=== PATIENT | female | born 1965 | race Caucasian/White ===

== ENCOUNTER → 2018-04-09 10:45 | Outpatient (CLI) | payer OTHER, MEDICAID, SELFPAY ==
--- NOTE | 2018-04-09 10:49 | DI.RAD.S_ITS ---
PROCEDURE: XR KNEE RT 3V INDICATIONS: right knee pain TECHNIQUE: 3 views of the knee were acquired. COMPARISON: None. FINDINGS: Bones: No fractures or dislocations. No suspicious bony lesions. Minimal degenerative change. Soft tissues: Moderate joint effusion. No suspicious soft tissue calcifications. IMPRESSION: Moderate effusion. No visualized acute fracture or dislocation. However, if clinical concern and/or pain persist, short interval imaging followup in 7-10 days is recommended, as occult injury cannot be definitively excluded. Dictated by: Gladis Sumner M.D. on 04/09/2018 at 14:44 Approved by: Gladis Sumner M.D. on 04/09/2018 at 14:45
== END ==
PROVIDERS: Family Provider Family Medicine; PCP Family Medicine; Visit Provider Family Medicine
DX: M25.561 Pain in right knee (principal); M25.461 Effusion, right knee
CPT/HCPCS: 73562

== ENCOUNTER 2018-04-28 05:49 | Emergency (ER) | payer OTHER, MEDICAID, SELFPAY ==
[2018-04-28 05:57] VITALS: BP 138/75; PULSE 92; RESP 16; O2SAT 100
[2018-04-28 06:04] VITALS: BP 147/85; PULSE 92; RESP 16; TEMP 36.8; O2SAT 100; BMI 34.5
--- NOTE | 2018-04-28 06:05 | ED_ITS ---
HPI - Extremity Injury (Lower) General Chief Complaint: Extremity Injury, Lower Stated Complaint: RIGHT LEG CRAMPING UP Time Seen by Provider: 04/28/18 05:58 Source: patient Mode of arrival: ambulatory Limitations: no limitations History of Present Illness HPI Narrative: Patient is here for evaluation of cramping of her right lower extremity. Patient states that she has had issues with pain in her right knee. She states that a consult has been placed for an MRI by her primary doctor. Patient states that overnight she had cramping in her right calf down into her foot. She states that this is causing her ?AFib? to get worse. She states she is feeling palpitations and very anxious about the situation. Related Data Home Medications Medication Instructions Recorded Confirmed sertraline [Zoloft] 100 mg PO QDAY #0 12/08/17 Previous Rx's Medication Instructions Recorded simethicone [Gas Relief 80] 80 mg PO Q8H PRN #20 11/06/17 lorazepam [Ativan] 1 mg PO BIDP PRN #10 tab 12/06/17 ondansetron [Zofran ODT] 4 mg SUBLINGUAL Q6HP PRN #10 odt 12/06/17 lorazepam 1 mg PO SEE INSTRUCTIONS #60 tab 12/08/17 cephalexin [Keflex] 500 mg PO Q6H 7 Days #0 cap 02/27/18 diphenhydramine HCl [Benadryl 25 mg PO Q6HP PRN #30 tab 02/27/18 Allergy] loratadine [Claritin Liqui-Gel] 10 mg PO QDAY #30 sgl 02/27/18 prednisone 40 mg PO Q DAY 7 Days #0 tab 02/27/18 cyclobenzaprine 10 mg PO TID PRN #7 tab 04/28/18 Allergies Allergy/AdvReac Type Severity Reaction Status Date / Time lorazepam [From Ativan] Allergy Intermediate itching Verified 04/28/18 06:20 sertraline [SERTRALINE] Allergy Unknown Verified 04/28/18 06:20 codeine [CODEINE] AdvReac Mild vomiting Verified 04/28/18 06:20 hydrocodone [HYDROCODONE] AdvReac Mild vomiting Verified 04/28/18 06:20 ibuprofen [IBUPROFEN] AdvReac Mild gi upset Verified 04/28/18 06:20 Penicillins [PENICILLINS] AdvReac Mild vomiting Verified 04/28/18 06:20 Sulfa (Sulfonamide AdvReac Mild headache Verified 04/28/18 06:20 Antibiotics) [SULFA (SULFONAMIDE ANTIBIOTICS)] Review of Systems Constitutional Denies chills, Denies fever(s), Denies lethargy and Denies weakness Cardiovascular Denies chest pain, Denies chest pain at rest, Reports rapid heart rate, Reports palpitations, Denies dyspnea and Denies dyspnea on exertion Respiratory Denies cough, Denies dyspnea, Denies dyspnea on exertion and Denies wheezing Gastrointestinal Gastrointestinal: Denies abdominal pain, Denies change in bowel habits, Denies diarrhea, Denies nausea and Denies vomiting Musculoskeletal Comments: Cramping to her right calf muscle Integumentary/Breasts Denies pruritus, Denies erythema, Denies rash and Denies wounds Neurologic Denies weakness Endocrine Reports palpitations Hematologic/Lymphatic Denies easy bruising Allergic/Immunologic Denies wheezing FOR[facility]LY [facility] Medical History Afib (Acute) Social History Smoking Status: Current every day smoker Exam Initial Vital Signs Initial Vital Signs: Vital Signs Pulse Rate 92 H 04/28/18 05:57 Respiratory Rate 16 04/28/18 05:57 Blood Pressure 138/75 H 04/28/18 05:57 Pulse Oximetry 100 04/28/18 05:57 Resp Effort & Inspection: normal respiratory effort Skin General: no rashes or lesions noted, No jaundice and No petechiae Neuro Other: Sensation intact to light touch right lower extremity Extrem Other: Tenderness to palpation around the right knee and on the calf muscle. No muscle spasms felt Course Orders Ordered: ED Orders 04/28/18 06:04 EKG-12 Lead Stat 04/28/18 06:28 Basic Metabolic Panel Stat Discontinued Medications Cyclobenzaprine HCl (Flexeril) 10 mg PO NOW ONE Stop: 04/28/18 06:41 Last Admin: 04/28/18 06:41 Dose: 10 mg Diazepam (Valium) 5 mg PO NOW ONE Stop: 04/28/18 06:05 Vital Signs - 8 hr 04/28/18 05:57 04/28/18 06:04 Temperature 98.2 F Pulse Rate 92 H 92 H Respiratory Rate 16 16 Blood Pressure 147/85 H Blood Pressure [Left Arm] 138/75 H Pulse Oximetry 100 100 MDM - Extremity Injury (Lower) Lab Data Attestation: I reviewed the patient's lab results. Result diagrams: 04/28/18 06:28 Lab Results 04/28/18 Range/Units 06:28 Sodium 141 (137-145) mmol/L Potassium 3.7 (3.4-5.1) mmol/L Chloride 103 (98-107) mmol/L Carbon Dioxide 26 (22-32) mmol/L BUN 16 (7-17) mg/dL Creatinine 0.70 (0.52-1.04) mg/dL Estimated GFR > 60.0 (>60) mL/min BUN/Creatinine Ratio 22.9 H (6-22) Glucose 146 H (70-100) mg/dL Calcium 9.4 (8.4-10.2) mg/dL ECG Data Attestation: I personally reviewed and interpreted this ECG as follows: Prior ECG tracings: not available for review Interpretation: Sinus rhythm Ventricular rate is 76 Normal axis Normal intervals Normal QRS No ST T wave changes MDM Narrative Medical decision making narrative: EKG unremarkable. Patient not in atrial fibrillation. Labs unremarkable. No signs of DVT. We did discuss leg cramps and how to treat them at home. We did discuss that she needs increase her fluid intake. We did discuss return precautions. She expressed understanding and agreement with plan Discharge Plan Departure Patient Disposition: Home, Self-Care Clinical Impression: Cramp in muscle Instructions: Nocturnal Leg Cramps Activity Restrictions/Additional Instructions: Recommend that you increase your fluid intake. If the cramps started again you can do some light stretching. Make sure you keep all of your scheduled medical appointments. Call your primary doctor for follow-up. Prescriptions: New cyclobenzaprine 10 mg tablet 10 mg PO TID PRN (Reason: muscle spasm) Qty: 7 RF: 0 No Action simethicone [Gas Relief 80] 80 MG tablet,chewable 80 mg PO Q8H PRNQty: 20 RF: 0 lorazepam [Ativan] 1 MG tablet 1 mg PO BIDP PRNQty: 10 RF: 0 ondansetron [Zofran ODT] 4 MG tablet,disintegrating 4 mg Sublingual Q6HP PRNQty: 10 RF: 0 sertraline [Zoloft] 100 MG tablet 100 mg PO QDAY Qty: 0 RF: 0 lorazepam 1 MG tablet 1 mg PO SEE INSTRUCTIONS Qty: 60 RF: 1 prednisone 20 MG tablet 40 mg PO Q DAY 7 Days Qty: 0 RF: 0 cephalexin [Keflex] 500 MG capsule 500 mg PO Q6H 7 Days Qty: 0 RF: 0 diphenhydramine HCl [Benadryl Allergy] 25 MG tablet 25 mg PO Q6HP PRNQty: 30 RF: 0 loratadine [Claritin Liqui-Gel] 10 MG capsule 10 mg PO QDAY Qty: 30 RF: 0
--- NOTE | 2018-04-28 06:24 | PC.NURSE ---
Pt drove herself to ER. Informed pt that valium is benzo med which has sedative effect and held med at this time.
[2018-04-28 06:41] LABS: BUN Creatinine Ratio 22.9 (6-22); Blood Urea Nitrogen 16 mg/dL (7-17); Calcium 9.4 mg/dL (8.4-10.2); Carbon Dioxide 26 mmol/L (22-32); Chloride 103 mmol/L (98-107); Estimated Glomerular Filt Rate > 60.0 mL/min (>60); Glucose 146 mg/dL (70-100); HEMOLYSIS < 15 (0-50); Potassium 3.7 mmol/L (3.4-5.1); Sodium 141 mmol/L (137-145)
[2018-04-28] MEDS: CYCLOBENZAPRINE 10 MG TABLET PO (06:41)
[2018-04-28 07:08] VITALS: BP 135/69; PULSE 77; RESP 18; O2SAT 99
== END 2018-04-28 07:00 | disposition home or self-care (01) ==
PROVIDERS: Emergency Provider Emergency Medicine; Family Provider Family Medicine; PCP Family Medicine
DX: R25.2 Cramp and spasm (principal)
CPT/HCPCS: 36415; 80048; 93005; 99282; 99284

== ENCOUNTER 2018-05-07 17:59 | Emergency (ER) | payer OTHER, MEDICAID, SELFPAY ==
[2018-05-07 18:01] VITALS: BP 132/86; PULSE 80; RESP 14; TEMP 36.7; O2SAT 99; BMI 34.5
[2018-05-07 18:04] VITALS: BP 132/86; PULSE 80; RESP 14; TEMP 36.7; O2SAT 99; BMI 34.5
--- NOTE | 2018-05-07 18:08 | DI.RAD.S_ITS ---
PROCEDURE: XR CHEST 2V INDICATIONS: shortness of breath TECHNIQUE: 2 views of the chest were acquired. COMPARISON: None. FINDINGS: Surgical changes and devices: None. Lungs and pleura: No pleural effusions or pneumothorax. Lungs are clear. Mediastinum: Mediastinal contours are normal. Heart size is normal. Bones and chest wall: No suspicious bony abnormalities. Soft tissues appear unremarkable. IMPRESSION: No acute process. Dictated by: Ivania Mabry M.D. on 05/07/2018 at 18:31 Approved by: Ivania Mabry M.D. on 05/07/2018 at 18:31
[2018-05-07] MEDS: ASPIRIN 81 MG TAB 324 MG PO (18:10)
[2018-05-07 18:23] LABS: Add Manual Diff / Slide Review NO; Basophils Percent Auto 0.7 % (0-2); Eosinophils Percent Auto 1.3 % (2-4); Hematocrit 35.6 % (36-46); Hemoglobin 11.9 g/dL (12.0-16.0); Lymphocytes Percent Auto 24.2 % (25-40); Mean Corpuscular HGB Conc 33.4 % (30-36); Mean Corpuscular Hemoglobin 26.1 PG (26-34); Mean Corpuscular Volume 78.1 fL (80-100); Monocytes Percent Auto 4.4 % (3-14); Neutrophils Absolute Auto 5700 /uL (3000-5900); Neutrophils Percent Auto 69.4 % (50-75); Platelet Count 358 X10^3/uL (150-400); Red Blood Cell Count 4.56 X10^6/uL (4.0-5.2); Red Cell Distribution Width 14.3 % (11.6-14.8); White Blood Cell Count 8.3 X10^3/uL (4.5-11.0)
[2018-05-07 18:35] LABS: Alanine Aminotransferase 32 IU/L (9-52); Albumin 4.4 g/dL (3.5-5.0); Albumin Globulin Ratio 1.5 (1.0-2.8); Alkaline Phosphatase 82 U/L (38-126); Aspartate Aminotransferase 21 IU/L (14-36); BUN Creatinine Ratio 16.3 (6-22); Bilirubin Total 0.5 mg/dL (0.2-1.3); Blood Urea Nitrogen 13 mg/dL (7-17); Calcium 9.2 mg/dL (8.4-10.2); Carbon Dioxide 24 mmol/L (22-32); Chloride 102 mmol/L (98-107); Creatine Kinase 58 U/L (30-135); Estimated Glomerular Filt Rate > 60.0 mL/min (>60); Glucose 152 mg/dL (70-100); HEMOLYSIS < 15 (0-50); Lipase 77 U/L (23-300); Potassium 3.4 mmol/L (3.4-5.1); Sodium 139 mmol/L (137-145); Total Protein 7.4 g/dL (6.3-8.2)
[2018-05-07 18:46] LABS: Troponin I < 0.012 ng/mL (0.01-0.034)
--- NOTE | 2018-05-07 20:02 | ED.CHESTPAIN ---
HPI - Chest Pain <JONG Contreras - Last Filed: 05/07/18 22:09> General Chief Complaint: Chest Pain Stated Complaint: CHEST PAIN GOING DOWN LEFT SIDE SOB History of Present Illness HPI narrative: 52-year-old female with history of anxiety and atypical chest pain here for complaint of having chest pain for the last several weeks. She reports that her primary care provider took her off of anxiety medications just prior to having her the symptoms. She has not been able to get back to her primary care provider for further evaluation of her anxiety. She denies any shortness of breath. She states that she gets this shortness of breath. She denies any stresses or relieves of the pain. No nausea or vomiting. No diaphoresis. She denies any other concerns or complaints. Related Data Previous Rx's Medication Instructions Recorded diazepam 5 mg PO TID PRN #20 tab 05/07/18 Allergies Allergy/AdvReac Type Severity Reaction Status Date / Time lorazepam [From Ativan] Allergy Intermediate itching Verified 04/28/18 06:20 sertraline [SERTRALINE] Allergy Unknown Verified 04/28/18 06:20 codeine [CODEINE] AdvReac Mild vomiting Verified 04/28/18 06:20 hydrocodone [HYDROCODONE] AdvReac Mild vomiting Verified 04/28/18 06:20 ibuprofen [IBUPROFEN] AdvReac Mild gi upset Verified 04/28/18 06:20 Penicillins [PENICILLINS] AdvReac Mild vomiting Verified 04/28/18 06:20 Sulfa (Sulfonamide AdvReac Mild headache Verified 04/28/18 06:20 Antibiotics) [SULFA (SULFONAMIDE ANTIBIOTICS)] Review of Systems <JONG Contreras - Last Filed: 05/07/18 22:09> Constitutional Denies chills, Denies fever(s), Denies lethargy and Denies weakness Eyes Denies change in vision, Denies eye discharge, Denies irritation and Denies loss of vision ENT Ears, Nose, Mouth, and Throat: Denies change in voice, Denies neck pain and Denies sore throat Cardiovascular Reports chest pain, Denies dyspnea and Denies dyspnea on exertion Respiratory Denies cough, Denies dyspnea, Denies dyspnea on exertion and Denies wheezing Gastrointestinal Gastrointestinal: Denies abdominal pain, Denies change in bowel habits, Denies diarrhea, Denies nausea and Denies vomiting Musculoskeletal Denies neck pain Integumentary/Breasts Denies pruritus, Denies erythema, Denies rash and Denies wounds Neurologic Denies loss of vision and Denies weakness Psychiatric Reports anxiety Hematologic/Lymphatic Denies easy bruising Allergic/Immunologic Denies wheezing Exam <JONG Contreras - Last Filed: 05/07/18 22:09> Initial Vital Signs Initial Vital Signs: Vital Signs Temperature 98.0 F 05/07/18 18:01 Pulse Rate 80 05/07/18 18:01 Respiratory Rate 14 05/07/18 18:01 Blood Pressure 132/86 H 05/07/18 18:01 Pulse Oximetry 99 05/07/18 18:01 Const General: cooperative and well developed Nutritional Appearance: well nourished Orientation: alert, awake, oriented x3 and not confused HENMT Nose: nasal discharge Mouth: oral mucosae normal and moist mucous membranes Eyes Conjunctivae: conjunctivae normal Sclera: sclerae normal Pupils: PERRL EOM: EOM intact bilaterally Resp Effort & Inspection: normal respiratory effort, able to speak in complete sentences, no respiratory distress and no use of accessory muscles Auscultation: clear to auscultation bilaterally, no rales, no rhonchi and no wheezes Cardio Rate: regular rate Rhythm: regular rhythm Heart Sounds: no click, no gallops, no murmurs and no rubs Pulses: normal peripheral pulses Skin General: no rashes or lesions noted, No jaundice and No petechiae <Glen Franklin DO - Last Filed: 05/08/18 01:31> Initial Vital Signs Initial Vital Signs: Vital Signs Temperature 98.0 F 05/07/18 18:01 Pulse Rate 80 05/07/18 18:01 Respiratory Rate 14 05/07/18 18:01 Blood Pressure 132/86 H 05/07/18 18:01 Pulse Oximetry 99 05/07/18 18:01 Scores <JONG Contreras - Last Filed: 05/07/18 22:09> HEART Score Heart Score history: Slightly Suspicious Heart Score EKG: Normal Heart Score Age: 45-64 years old Heart Score risk factors: 1-2 risk factors Heart Score troponin: < or = to normal limit Heart Score Total: 2 Wells' Criteria for PE Clinical signs and symptoms of PE: No PE is #1 Dx or equally likely: No Heart rate > 100: No Immobilization at least 3 days or surg in previous 4 weeks: No History of PE or DVT: No Hemoptysis: No Malignancy w/Treatment within 6 months or palliative: No Wells' PE Score total: 0 Course <JONG Contreras - Last Filed: 05/07/18 22:09> Orders Ordered: ED Orders 05/07/18 18:07 EKG-12 Lead Stat 05/07/18 18:08 XR chest 2V Stat 05/07/18 18:15 Complete Blood Count AUTO DIFF Stat Comprehensive Metabolic Panel Stat Lipase Stat Troponin with CK Cardiac Panel Stat 05/07/18 18:18 D Dimer Stat Discontinued Medications Aspirin (Aspirin Chew) 324 mg PO NOW ONE Stop: 05/07/18 18:08 Last Admin: 05/07/18 18:10 Dose: 324 mg Vital Signs - 8 hr 05/07/18 18:01 05/07/18 18:04 05/07/18 20:05 Temperature 98.0 F 98.0 F Pulse Rate 80 80 68 Respiratory Rate 14 14 17 Blood Pressure 132/86 H 132/86 H Blood Pressure [Right Arm] 140/84 H Pulse Oximetry 99 99 100 05/07/18 20:48 Temperature Pulse Rate 70 Respiratory Rate 16 Blood Pressure Blood Pressure [Right Arm] 135/94 H Pulse Oximetry 100 <Glen Franklin DO - Last Filed: 05/08/18 01:31> Orders Ordered: ED Orders 05/07/18 18:07 EKG-12 Lead Stat 05/07/18 18:08 XR chest 2V Stat 05/07/18 18:15 Complete Blood Count AUTO DIFF Stat Comprehensive Metabolic Panel Stat Lipase Stat Troponin with CK Cardiac Panel Stat 05/07/18 18:18 D Dimer Stat Discontinued Medications Aspirin (Aspirin Chew) 324 mg PO NOW ONE Stop: 05/07/18 18:08 Last Admin: 05/07/18 18:10 Dose: 324 mg Vital Signs - 8 hr 05/07/18 18:01 05/07/18 18:04 05/07/18 20:05 Temperature 98.0 F 98.0 F Pulse Rate 80 80 68 Respiratory Rate 14 14 17 Blood Pressure 132/86 H 132/86 H Blood Pressure [Right Arm] 140/84 H Pulse Oximetry 99 99 100 05/07/18 20:48 Temperature Pulse Rate 70 Respiratory Rate 16 Blood Pressure Blood Pressure [Right Arm] 135/94 H Pulse Oximetry 100 MDM - Chest Pain <David JONG Uribe - Last Filed: 05/07/18 22:09> Lab Data Result diagrams: 05/07/18 18:15 05/07/18 18:15 Lab Results 05/07/18 05/07/18 05/07/18 Range/Units 18:15 18:15 18:18 WBC 8.3 (4.5-11.0) X10^3/uL RBC 4.56 (4.0-5.2) X10^6/uL Hgb 11.9 L (12.0-16.0) g/dL Hct 35.6 L (36-46) % MCV 78.1 L (80-100) fL MCH 26.1 (26-34) PG MCHC 33.4 (30-36) % RDW 14.3 (11.6-14.8) % Plt Count 358 (150-400) X10^3/uL Neut % (Auto) 69.4 (50-75) % Lymph % (Auto) 24.2 L (25-40) % [place] % (Auto) 4.4 (3-14) % Eos % (Auto) 1.3 L (2-4) % Baso % (Auto) 0.7 (0-2) % Neut # (Auto) 5700 (0147-6611) /uL D-Dimer < 200 (<230) ng/mL Sodium 139 (137-145) mmol/L Potassium 3.4 (3.4-5.1) mmol/L Chloride 102 (98-107) mmol/L Carbon Dioxide 24 (22-32) mmol/L BUN 13 (7-17) mg/dL Creatinine 0.80 (0.52-1.04) mg/dL Estimated GFR > 60.0 (>60) mL/min BUN/Creatinine Ratio 16.3 (6-22) Glucose 152 H (70-100) mg/dL Calcium 9.2 (8.4-10.2) mg/dL Total Bilirubin 0.5 (0.2-1.3) mg/dL AST 21 (14-36) IU/L ALT 32 (9-52) IU/L Alkaline Phosphatase 82 (38-126) U/L Total Creatine Kinase 58 (30-135) U/L Troponin I < 0.012 (0.01-0.034) ng/mL Total Protein 7.4 (6.3-8.2) g/dL Albumin 4.4 (3.5-5.0) g/dL Globulin 3.0 (1.7-4.1) g/dL Albumin/Globulin Ratio 1.5 (1.0-2.8) Lipase 77 (23-300) U/L Imaging Data Chest x-ray: Radiologist's impression: PROCEDURE: XR CHEST 2V INDICATIONS: shortness of breath TECHNIQUE: 2 views of the chest were acquired. COMPARISON: None. FINDINGS: Surgical changes and devices: None. Lungs and pleura: No pleural effusions or pneumothorax. Lungs are clear. Mediastinum: Mediastinal contours are normal. Heart size is normal. Bones and chest wall: No suspicious bony abnormalities. Soft tissues appear unremarkable. IMPRESSION: No acute process. Dictated by: Ivania Mabry M.D. on 05/07/2018 at 18:31 Approved by: Ivania Mabry M.D. on 05/07/2018 at 18:31 ECG Data Interpretation: EKG shows normal sinus rhythm with no ST elevation or depression. No ectopy. Ventricular rate of 89. P are interval of 193. QRS duration is 78. QT of 358. MDM Narrative Medical decision making narrative: EKG shows normal sinus rhythm with no ST elevation or depression. Chest x-ray was obtained was negative for any acute findings. One set of cardiac enzymes was obtained was negative. D-dimer was less than 200. CBC and Chem panel were unremarkable. Sinus symptoms presents as chest pain is secondary to anxiety. She has been taken off of her anxiety medication which included sertraline and Ativan due to itching. She states she can actually tolerate Valium. She is given a small amount of Valium to help with her symptoms in the short term she is encouraged to follow up with primary care provider for further evaluation and treatment. She is also encouraged to follow up with counselor that she has schedule up later this month. She is instructed to use a relaxation techniques such as breathing exercises. For any worsening symptoms return to the emergency room. <Glen Franklin DO - Last Filed: 05/08/18 01:31> Lab Data Lab Results 06/11/18 06/11/18 06/11/18 Range/Units 18:15 18:15 18:18 WBC 8.3 (4.5-11.0) X10^3/uL RBC 4.56 (4.0-5.2) X10^6/uL Hgb 11.9 L (12.0-16.0) g/dL Hct 35.6 L (36-46) % MCV 78.1 L (80-100) fL MCH 26.1 (26-34) PG MCHC 33.4 (30-36) % RDW 14.3 (11.6-14.8) % Plt Count 358 (150-400) X10^3/uL Neut % (Auto) 69.4 (50-75) % Lymph % (Auto) 24.2 L (25-40) % [place] % (Auto) 4.4 (3-14) % Eos % (Auto) 1.3 L (2-4) % Baso % (Auto) 0.7 (0-2) % Neut # (Auto) 5700 (2460-9085) /uL D-Dimer < 200 (<230) ng/mL Sodium 139 (137-145) mmol/L Potassium 3.4 (3.4-5.1) mmol/L Chloride 102 (98-107) mmol/L Carbon Dioxide 24 (22-32) mmol/L BUN 13 (7-17) mg/dL Creatinine 0.80 (0.52-1.04) mg/dL Estimated GFR > 60.0 (>60) mL/min BUN/Creatinine Ratio 16.3 (6-22) Glucose 152 H (70-100) mg/dL Calcium 9.2 (8.4-10.2) mg/dL Total Bilirubin 0.5 (0.2-1.3) mg/dL AST 21 (14-36) IU/L ALT 32 (9-52) IU/L Alkaline Phosphatase 82 (38-126) U/L Total Creatine Kinase 58 (30-135) U/L Troponin I < 0.012 (0.01-0.034) ng/mL Total Protein 7.4 (6.3-8.2) g/dL Albumin 4.4 (3.5-5.0) g/dL Globulin 3.0 (1.7-4.1) g/dL Albumin/Globulin Ratio 1.5 (1.0-2.8) Lipase 77 (23-300) U/L Discharge Plan Departure Patient Disposition: Home, Self-Care Clinical Impression: Chest pain Discharge Date/Time: 05/07/18 20:55 Interventions: ED Discharge Assessment Last Done: 05/07/18 20:55 Instructions: DI for Anxiety -- Adult Activity Restrictions/Additional Instructions: Laboratory results EKG and imaging today were unremarkable. Signs and symptoms presents as chest pain secondary to anxiety. Follow up with primary care provider one week for further evaluation and treatment. Year prescribed a small amount of Valium to help with any anxiety symptoms. Recommend also use relaxation techniques such as deep breathing exercises. Follow up with counselor later this month as scheduled. For any worsening symptoms return to the emergency room. Prescriptions: New diazepam 5 mg tablet 5 mg PO TID PRN (Reason: anxiety) Qty: 20 RF: 0 Referrals: Steffen Loera MD [Primary Care Provider] - <Glen Franklin DO - Last Filed: 05/08/18 01:31> Cosign ED Attending Marino Attestation: I was available for consultation during this patient's emergency department encounter
[2018-05-07 20:05] VITALS: BP 140/84; PULSE 68; RESP 17; O2SAT 100
[2018-05-07 20:28] LABS: D Dimer < 200 ng/mL (<230)
[2018-05-07 20:48] VITALS: BP 135/94; PULSE 70; RESP 16; O2SAT 100
== END 2018-05-07 20:55 | disposition home or self-care (01) ==
PROVIDERS: Emergency Medicine; Emergency Provider Nurse Practitioner Family; Family Provider Family Medicine; PCP Family Medicine
DX: R07.9 Chest pain, unspecified (principal)
CPT/HCPCS: 36415; 71046; 80053; 81003; 82550; 82553; 83690; 84484; 85025; 85379; 93005; 99282; 99285

== ENCOUNTER 2018-08-04 06:04 | Emergency (ER) | payer OTHER, MEDICAID, SELFPAY ==
[2018-08-04 06:27] VITALS: BP 155/90; PULSE 75; RESP 20; TEMP 36.8; O2SAT 98; BMI 33.5
== END 2018-08-04 07:02 | disposition left against medical advice (07) ==
PROVIDERS: Family Provider Family Medicine; PCP Family Medicine
DX: F41.9 Anxiety disorder, unspecified (principal)
CPT/HCPCS: 99282

== ENCOUNTER 2018-12-20 06:31 | Day surgery (SDC) | payer OTHER, MEDICAID, SELFPAY ==
[2018-12-20] VITALS (9 sets, daily range): BP systolic 120–144; BP diastolic 54–84; PULSE 59–68; RESP 11–20; TEMP 36–36.6; O2SAT 96–100; BMI 34.2
--- NOTE | 2018-12-20 | PATH_ITS ---
[facility] Accession Number: [id number] . 01 Material submitted: . BIOPSY AT 15CM . 02 Diagnosis: Colon, Biopsy at 15 cm: Hyperplastic polyp. MRV/12/21/2018 . 02 Electronically signed: . Tawanna Fritz MD, Pathologist NPI- [id number] . 01 Gross description: . Received one formalin-filled container labeled with the patient's name and labeled at 15 cm. The specimen consists of a 0.3 cm portion of tissue. Entirely submitted in one cassette. ([facility] [place]:[id number]) /[facility] . 02 Pathologist provided ICD-10: K63.5 . 02 CPT . 184494 Performed at: 01 [facility] [address] [id number] MD Varun Tavarez MD Phone: [phone] Performed at: 02 [facility] [address] [place], [place] [id number] MD Tawanna Fritz MD Phone: [phone]
[2018-12-20] MEDS: LACTATED RINGERS 1,000 ML 200 ML IV (07:17)
--- NOTE | 2018-12-20 07:51 | PM.PREOP ---
Pre-operative Note Interval Note History & Physical reviewed/Exam performed by Physician: Yes Changes to H&P: No
--- NOTE | 2018-12-20 08:58 | PM.OP.ENDO ---
Operative Date/Time/Diagnoses Date of procedure: 12/20/18 Time of procedure: 08:58 Pre-op diagnosis: Rectal bleeding. Hemorrhoids. Post-op diagnosis: same (Diverticulosis sigmoid colon. One small polyp like lesion 15 cm from the anal verge) Procedure & Clinicians Study performed: Colonoscopy with cold biopsy. Anoscopy with hemorrhoidal banding 3 columns. Same procedure as scheduled: Yes Indications: Rectal bleeding Surgeon: Gunner Arenas Procedure Notes SCOAP/Timeout: Performed Procedure in detail: The patient was placed in left lateral decubitus position underwent monitored anesthesia care. Anesthesia was involved because of the severe anxiety of this patient and the insistence that she be put to sleep. Digital exam was unremarkable. There was a visible hemorrhoid at the anal verge. The scope was inserted advanced through the rectum into the sigmoid descending transverse and ascending colon. The cecum was reached by inserting a stiffener. Cecum was identified by the ileocecal valve and the appendiceal opening. The terminal ileum was cannulated and was normal in appearance. The scope was gradually brought out. Sigmoid diverticuli were noted. There were no other significant finding saw I reached 15 cm. There was a very small flat lesion which was biopsied and removed. Scope was retroflexed in the rectum. The patient had visible internal hemorrhoids. The scope was removed. An anoscope was then inserted. The patient had 3 columns of internal hemorrhoids 1 of which was associated with the visible hemorrhoid seen at the beginning. Bands were placed on these 3 columns. The patient tolerated this well. She was taken recovery area in good condition. There were no apparent complications. Scope withdrawal time: Over 12 min Sedation minutes: 0 (Monitored anesthesia care due to anxiety) Findings: diverticulosis (Sigmoid), internal hemorrhoids (Banded 3 columns) and polyp (15 cm) Recommendations: Colonscopy in 5 years (Unless the polyp is not neoplastic. Then 10 years would be more appropriate.) Follow up: as needed Disposition: PACU
[2018-12-20] MEDS: fentaNYL 100 MCG/2 ML INJ 50 MCG IV ×3 (09:00→09:10)
[2018-12-20] MEDS: OXYCODONE IR 5 MG TABLET PO (09:30)
== END 2018-12-20 10:19 | disposition home or self-care (01) ==
PROVIDERS: Family Provider Family Medicine; PCP Family Medicine; Visit Provider Specialist
PROC: 0DJD8ZZ Inspection of Lower Intestinal Tract, Via Natural or Artificial Opening Endoscopic (ICD-10-PCS; CPT 45378; principal; 2018-12-20 07:45)
DX: K62.5 Hemorrhage of anus and rectum (principal); K57.30 Diverticulosis of large intestine without perforation or abscess without bleeding; I48.91 Unspecified atrial fibrillation; F33.41 Major depressive disorder, recurrent, in partial remission; F43.12 Post-traumatic stress disorder, chronic; K63.5 Polyp of colon; K64.8 Other hemorrhoids
CPT/HCPCS: 45380; 46221; 88305; J2704; J3010

== ENCOUNTER → 2019-01-22 08:19 | Outpatient (CLI) | payer OTHER, MEDICAID, SELFPAY ==
--- NOTE | 2019-01-22 09:26 | PM.TREADMILL ---
Cardiac Stress Test Report Referral & Results Date Patient Seen: 01/22/19 Requesting provider: Toño Ribera Indication: Chest pain Rest ECG: Unremarkable Procedure Note: Today following both written and verbal informed consent, the patient was exercised according to a standard Kenn protocol. The patient exercised for a total of 6 min 29 sec achieving a maximum heart rate of 157. Patient's maximum systolic blood pressure was 180. This was an estimated 7.0 MET's. There are no ST-T segment changes identified Normal heart rate and blood pressure response to exercise Rare PVC Functional aerobic impairment rated about 0 on the sedentary scale Patient did develop chest discomfort with exercise at resolve slowly during recovery. This was mid substernal chest pain described as sharp. Patient also developed mild dyspnea Impression: No evidence of ischemia based on usual ECG criteria. Symptoms were somewhat suspicious for possible ischemia This stress test could be repeated with perfusion imaging if clinical concern warrants Please note: Actual ECG tracings can be found in the PACS system.
== END ==
PROVIDERS: PCP Family Medicine; Visit Provider Internal Medicine Cardiovascular Disease
DX: R07.9 Chest pain, unspecified (principal)
CPT/HCPCS: 93016; 93017; 93018

== ENCOUNTER → 2019-02-20 10:03 | Outpatient (CLI) | payer OTHER, MEDICAID, SELFPAY ==
[2019-02-20 10:33] LABS: Add Manual Diff / Slide Review NO; Basophils Absolute Auto 100 /uL (0-100); Basophils Percent Auto 0.9 % (0-2); Eosinophils Absolute Auto 100 /uL (0-450); Eosinophils Percent Auto 1.3 % (2-4); Hematocrit 36.5 % (36-46); Hemoglobin 12.4 g/dL (12.0-16.0); Lymphocytes Absolute Auto 2300 /uL (1100-4500); Lymphocytes Percent Auto 31.4 % (25-40); Mean Corpuscular HGB Conc 33.8 % (30-36); Mean Corpuscular Hemoglobin 26.5 PG (26-34); Mean Corpuscular Volume 78.3 fL (80-100); Monocytes Absolute Auto 500 /uL (0-900); Monocytes Percent Auto 7.3 % (3-14); Neutrophils Absolute Auto 4200 /uL (1500-7000); Neutrophils Percent Auto 59.1 % (50-75); Platelet Count 338 X10^3/uL (150-400); Red Blood Cell Count 4.66 X10^6/uL (4.0-5.2); White Blood Cell Count 7.2 X10^3/uL (4.5-11.0)
[2019-02-20 10:43] LABS: Hemoglobin A1C% w Est Avg Glu 5.5 % (4.0-6.0)
[2019-02-20 10:56] LABS: Alanine Aminotransferase 26 IU/L (9-52); Albumin 4.6 g/dL (3.5-5.0); Albumin Globulin Ratio 1.5 (1.0-2.8); Alkaline Phosphatase 79 U/L (38-126); Aspartate Aminotransferase 21 IU/L (14-36); BUN Creatinine Ratio 18.8 (6-22); Bilirubin Total 0.3 mg/dL (0.2-1.3); Blood Urea Nitrogen 15 mg/dL (7-17); Calcium 9.6 mg/dL (8.4-10.2); Carbon Dioxide 28 mmol/L (22-32); Chloride 104 mmol/L (98-107); Cholesterol 169 mg/dL (140-199); Estimated Glomerular Filt Rate > 60.0 mL/min (>60); Glucose 112 mg/dL (70-100); HDL Cholesterol 43 mg/dL (40-60); HEMOLYSIS < 15 (0-50); LDL Cholesterol Calculated 108 mg/dL (<100); Potassium 4.3 mmol/L (3.4-5.1); Sodium 141 mmol/L (137-145); Total Protein 7.6 g/dL (6.3-8.2); Triglycerides 92 mg/dL (35-150)
[2019-02-20 12:53] LABS: Thyroid Stimulating Hormone 4.92 uIU/mL (0.47-4.68)
== END ==
PROVIDERS: PCP Family Medicine; Visit Provider Family Medicine
DX: R73.9 Hyperglycemia, unspecified (principal)
CPT/HCPCS: 36415; 80053; 80061; 83036; 84443; 85025

== ENCOUNTER → 2019-03-19 11:36 | Outpatient (CLI) | payer OTHER, MEDICAID, SELFPAY ==
[2019-03-19 12:45] LABS: Free T3, Triiodothyronine Free 3.43 pg/mL (2.77-5.27); Free T4, Direct Thyroxine 0.87 ng/dL (0.78-2.19)
[2019-03-19 12:59] LABS: Thyroid Stimulating Hormone 6.13 uIU/mL (0.47-4.68)
== END ==
PROVIDERS: PCP Family Medicine; Visit Provider Family Medicine
DX: R94.6 Abnormal results of thyroid function studies (principal)
CPT/HCPCS: 36415; 84439; 84443; 84481

== ENCOUNTER → 2019-03-27 15:10 | Outpatient (CLI) | payer OTHER, MEDICAID, SELFPAY ==
--- NOTE | 2019-03-27 15:12 | DI.RAD.S_ITS ---
PROCEDURE: XR LUMBAR SPINE 2-3V INDICATIONS: pain TECHNIQUE: 3 views of the lumbar spine were acquired. COMPARISON: [facility]y Mabry, CR, SPINE LUMB 2 OR 3VW, 11/30/2016, 9:52. FINDINGS: Bones: No fracture or focal osseous destruction. Multilevel degenerative endplate sclerosis and spurring. Diffuse facet arthropathy. Mild narrowing of the T12-L1 disc space. No interval change. Mild levocurvature centered at L2. Soft tissues: Overlying bowel gas pattern is normal. No suspicious soft tissue calcifications. IMPRESSION: Mild lumbar spine degenerative changes as above. No interval progression since 11/30/16. Mild levocurvature. Dictated by: Brian Kidd M.D. on 03/27/2019 at 16:27 Approved by: Brian Kidd M.D. on 03/27/2019 at 16:29
== END ==
PROVIDERS: PCP Family Medicine; Visit Provider Family Medicine
DX: M54.5 Low back pain (principal); M47.815 Spondylosis without myelopathy or radiculopathy, thoracolumbar region
CPT/HCPCS: 72100

== ENCOUNTER 2019-04-12 04:40 | Emergency (ER) | payer OTHER, MEDICAID, SELFPAY ==
[2019-04-12 04:48] VITALS: BP 135/78; PULSE 62; RESP 18; TEMP 36.6; O2SAT 100; BMI 33.2
--- NOTE | 2019-04-12 05:12 | ED_ITS ---
HPI - Abdominal Pain General Chief Complaint: Abdominal Pain Stated Complaint: Left abdominal pain Time Seen by Provider: 04/12/19 04:43 Source: patient Mode of arrival: ambulatory Limitations: no limitations History of Present Illness HPI narrative: Patient is a 53-year-old female here for evaluation of left lower chest wall pain. She states that it started after she was working on a truck earlier today and while using a wrench to undo a bolt she was pulling so hard that she actually lift herself up off the ground. She states that she had pain in her left lower anterior chest afterwards. Has not tried anything for the symptoms prior to arrival. The event occurred approximately 12 hours prior to coming here to the emergency department. She is here because she has pain with palpation and with movement and with taking deep breath. Related Data Previous Rx's Medication Instructions Recorded docusate calcium 240 mg capsule 480 mg PO BEDTIME #60 cap 08/30/18 ondansetron HCl 8 mg tablet 8 mg PO BID-TID PRN #10 tab 12/22/18 escitalopram 20 mg tablet 20 mg PO DAILY #30 tab 01/28/19 hydroxyzine pamoate 25 mg capsule 25 mg PO .COMPLEX #90 cap 03/21/19 levothyroxine 50 mcg tablet 50 mcg PO DAILY #180 tab 03/27/19 Disabled Parking Permit #1 ea 04/04/19 Allergies Allergy/AdvReac Type Severity Reaction Status Date / Time lorazepam [From Ativan] Allergy Intermediate itching Verified 03/27/19 14:35 sertraline [SERTRALINE] Allergy Unknown Verified 03/27/19 14:35 codeine [CODEINE] AdvReac Mild vomiting Verified 03/27/19 14:35 hydrocodone [HYDROCODONE] AdvReac Mild vomiting Verified 03/27/19 14:35 ibuprofen [IBUPROFEN] AdvReac Mild gi upset Verified 03/27/19 14:35 Penicillins [PENICILLINS] AdvReac Mild vomiting Verified 03/27/19 14:35 Sulfa (Sulfonamide AdvReac Mild headache Verified 03/27/19 14:35 Antibiotics) [SULFA (SULFONAMIDE ANTIBIOTICS)] Review of Systems Constitutional Denies fatigue and Denies fever(s) Cardiovascular Reports chest pain, Denies rapid heart rate, Denies edema, Denies lightheadedness, Denies palpitations and Denies dyspnea Respiratory Denies cough, Reports pain on inspiration and Denies dyspnea Gastrointestinal Gastrointestinal: Denies abdominal pain, Denies nausea and Denies vomiting Genitourinary Denies dysuria Musculoskeletal Denies myalgias and Denies arthralgias Integumentary/Breasts Denies rash Endocrine Denies fatigue and Denies palpitations Hematologic/Lymphatic Denies easy bleeding and Denies easy bruising [facility] Medical History Afib (Acute) Depression (Chronic) PTSD (post-traumatic stress disorder) (Chronic) Social History household members: spouse occupational status: unemployed Smoking Status: Never smoker Social History household members: spouse occupational status: unemployed Smoking Status: Never smoker Exam Initial Vital Signs Initial Vital Signs: Vital Signs Temperature 97.9 F 04/12/19 04:48 Pulse Rate 62 04/12/19 04:48 Respiratory Rate 18 04/12/19 04:48 Blood Pressure 135/78 04/12/19 04:48 Pulse Oximetry 100 04/12/19 04:48 Chest Other: Tenderness to palpation over the left lower ribs anterior chest wall Resp Effort & Inspection: normal respiratory effort Auscultation: clear to auscultation bilaterally Cardio Rate: regular rate Rhythm: regular rhythm Skin Lesions: no lesions Rashes: no rashes Neuro General: alert, awake and oriented x3 Cognition: normal cognition Speech: speech normal Extrem General: normal to inspection and capillary refill normal Course Vital Signs - 8 hr 04/12/19 04:48 Temperature 97.9 F Pulse Rate 62 Respiratory Rate 18 Blood Pressure 135/78 Pulse Oximetry 100 MDM - Abdominal Pain MDM Narrative Medical decision making narrative: Patient with reproducible left-sided anterior chest wall tenderness. I do suspect that it is intercostal muscle strain. Her lungs are clear. No indication for x-rays. I discussed all this with the patient. She stated that she did not want any pain medication and she would just take Tylenol at home. We did discuss the importance of taking big deep breaths to avoid pneumonia. Discussed return precautions and follow-up instructions. She expressed understanding and agreement with plan. Discharge Plan Departure Patient Disposition: Home Clinical Impression: Chest wall pain Discharge Date/Time: 04/12/19 05:07 Interventions: ED Discharge Assessment Last Done: 04/12/19 05:07 Instructions: DI for Muscle Strain Activity Restrictions/Additional Instructions: Your symptoms today are consistent with a muscle injury to your left lower ribs. Most likely from pulling yourself up earlier today. I recommend that you take Tylenol like we discussed. You could also use ibuprofen/Motrin. Contact your primary doctor for follow-up. Return to the emergency department for any new or worsening symptoms Prescriptions: No Action ondansetron HCl [Zofran] 8 mg tablet 8 mg PO BID-TID PRN (Reason: nausea and vomiting) Qty: 10 RF: 0 escitalopram oxalate 20 mg tablet 20 mg PO DAILY Qty: 30 RF: 0 levothyroxine 50 mcg tablet 50 mcg PO DAILY Qty: 180 RF: 3 Disabled Parking Permit Qty: 1 RF: 0 docusate calcium [Surfak] 240 mg capsule 480 mg PO BEDTIME Qty: 60 RF: 5 hydroxyzine pamoate 25 mg capsule 25 mg PO .COMPLEX Qty: 90 RF: 5 Referrals: Steffen Loera MD [Primary Care Provider] -
== END 2019-04-12 05:07 | disposition home or self-care (01) ==
PROVIDERS: Emergency Provider Emergency Medicine; PCP Family Medicine
DX: R07.89 Other chest pain (principal)
CPT/HCPCS: 99282

== ENCOUNTER 2019-06-04 21:24 | Emergency (ER) | payer OTHER, MEDICAID, SELFPAY ==
[2019-06-04 21:29] VITALS: BP 171/100; PULSE 64; RESP 20; TEMP 36.4; O2SAT 98
--- NOTE | 2019-06-04 21:49 | DI.US.S_ITS ---
PROCEDURE: US PERIPH VENOUS LOW EXTREM RT INDICATIONS: RIGHT LEG PAIN TECHNIQUE: Real-time imaging, as well as color and pulse Doppler interrogation, were performed of the lower extremity deep veins from the inguinal ligament to the popliteal fossa. COMPARISON: None. FINDINGS: The common femoral, femoral and popliteal veins are normally compressible, and free of intraluminal thrombus. Color and pulse Doppler demonstrate normal phasic intraluminal flow. There is normal augmentation response to distal compression maneuver. IMPRESSION: No DVT found. Note: These findings are concordant with the preliminary interpretation. Dictated by: Anthony Davila M.D. on 06/05/2019 at 9:07 Approved by: Anthony Davila M.D. on 06/05/2019 at 9:07
--- NOTE | 2019-06-04 22:15 | ED.EXTPRO ---
HPI - Extremity Problem General Chief complaint: Extremity Problem,Nontraumatic Stated complaint: Swollen Right leg Time Seen by Provider: 06/04/19 21:47 Source: patient Mode of arrival: ambulatory Limitations: no limitations History of Present Illness HPI Narrative: 53-year-old female here for evaluation of swelling to her right lower extremity appears also experiencing pain in this area. She stated that she did recently return from [place] by flight. No shortness of breath, no chest pain, has never had a blood clot before, no fevers. Related Data Previous Rx's Medication Instructions Recorded docusate calcium 240 mg capsule 480 mg PO BEDTIME #60 cap 08/30/18 ondansetron HCl 8 mg tablet 8 mg PO BID-TID PRN #10 tab 12/22/18 escitalopram 20 mg tablet 20 mg PO DAILY #30 tab 01/28/19 hydroxyzine pamoate 25 mg capsule 25 mg PO .COMPLEX #90 cap 03/21/19 levothyroxine 50 mcg tablet 50 mcg PO DAILY #180 tab 03/27/19 Disabled Parking Permit #1 ea 04/04/19 cetirizine 10 mg tablet 10 mg PO DAILY #30 tab 05/04/19 fluticasone propionate 50 2 spray NASAL DAILY #9.9 gram 05/04/19 mcg/actuation nasal spray,suspension furosemide [Lasix] 20 mg PO DAILY 5 Days #5 tab 06/04/19 Allergies Allergy/AdvReac Type Severity Reaction Status Date / Time lorazepam [From Ativan] Allergy Intermediate itching Verified 05/04/19 12:25 sertraline [SERTRALINE] Allergy Unknown Verified 05/04/19 12:25 codeine [CODEINE] AdvReac Mild vomiting Verified 05/04/19 12:25 hydrocodone [HYDROCODONE] AdvReac Mild vomiting Verified 05/04/19 12:25 ibuprofen [IBUPROFEN] AdvReac Mild gi upset Verified 05/04/19 12:25 Penicillins [PENICILLINS] AdvReac Mild vomiting Verified 05/04/19 12:25 Sulfa (Sulfonamide AdvReac Mild headache Verified 05/04/19 12:25 Antibiotics) [SULFA (SULFONAMIDE ANTIBIOTICS)] Review of Systems Constitutional Denies fever(s) and Denies headache(s) ENT Ears, Nose, Mouth, and Throat: Denies vertigo and Denies headache(s) Cardiovascular Denies chest pain and Denies dyspnea Respiratory Denies dyspnea Gastrointestinal Gastrointestinal: Denies abdominal pain Musculoskeletal Comments: Right leg pain and swelling Integumentary/Breasts Denies new lesions, Denies erythema and Denies rash Neurologic Denies burning sensations, Denies vertigo and Denies headache(s) Hematologic/Lymphatic Denies easy bleeding and Denies easy bruising [facility] Medical History Afib (Acute) Depression (Chronic) PTSD (post-traumatic stress disorder) (Chronic) Social History household members: spouse occupational status: unemployed Smoking Status: Never smoker Social History household members: spouse occupational status: unemployed Smoking Status: Never smoker Exam Initial Vital Signs Initial Vital Signs: Vital Signs Temperature 97.6 F 06/04/19 21:29 Pulse Rate 64 06/04/19 21:29 Respiratory Rate 20 06/04/19 21:29 Blood Pressure 171/100 H 06/04/19 21:29 Pulse Oximetry 98 06/04/19 21:29 Const General: cooperative, healthy appearing, comfortable, well developed, well groomed and No acute distress Orientation: alert, awake and oriented x3 HENMT Head: normal to inspection and normocephalic Resp Effort & Inspection: normal respiratory effort Auscultation: clear to auscultation bilaterally Cardio Rate: regular rate Rhythm: regular rhythm Pulses: dorsalis pedis present on the right Skin Lesions: no lesions Rashes: no rashes Neuro General: alert, awake and oriented x3 Cognition: normal cognition Speech: speech normal Gait: normal gait Sensory Exam: no sensory deficits noted Extrem Other: Patient with swelling to the right lower extremity. Need ankle. Psych Appearance: grossly normal and well kempt Course Orders Ordered: ED Orders 06/04/19 21:49 US periph venous low extrem rt Stat Vital Signs - 8 hr 06/04/19 21:29 Temperature 97.6 F Pulse Rate 64 Respiratory Rate 20 Blood Pressure 171/100 H Pulse Oximetry 98 MDM - Extremity (Nontraumatic) Imaging Data Venous US: Radiologist's impression: Read by real radiology Right lower extremity venous duplex ultrasound negative for DVT MDM Narrative Medical decision making narrative: Patient is neurovascularly intact. No DVT the right lower extremity. His consistent with peripheral edema. Will put her on Lasix for the next couple days. Informed her she needed talk with her primary doctor for follow-up. Low suspicion for infection or fracture. Patient expressed understanding and agreement with plan. Discharge Plan Departure Patient Disposition: Home Clinical Impression: Lower extremity edema Discharge Date/Time: 06/04/19 23:30 Interventions: ED Discharge Assessment Last Done: 06/04/19 23:49 Instructions: DI for Peripheral Edema, Unilateral Activity Restrictions/Additional Instructions: Take the Lasix like we discussed. Tomorrow contact your primary provider for a follow-up. Return to the emergency department for any new or worsening symptoms Prescriptions: New furosemide [Lasix] 20 mg tablet 20 mg PO DAILY 5 Days Qty: 5 RF: 0 No Action cetirizine [Zyrtec] 10 mg tablet 10 mg PO DAILY Qty: 30 RF: 0 fluticasone propionate [Flonase Allergy Relief] 50 mcg/actuation spray,suspension 2 spray NASAL DAILY Qty: 9.9 RF: 0 ondansetron HCl [Zofran] 8 mg tablet 8 mg PO BID-TID PRN (Reason: nausea and vomiting) Qty: 10 RF: 0 escitalopram oxalate 20 mg tablet 20 mg PO DAILY Qty: 30 RF: 0 levothyroxine 50 mcg tablet 50 mcg PO DAILY Qty: 180 RF: 3 Disabled Parking Permit Qty: 1 RF: 0 docusate calcium [Surfak] 240 mg capsule 480 mg PO BEDTIME Qty: 60 RF: 5 hydroxyzine pamoate 25 mg capsule 25 mg PO .COMPLEX Qty: 90 RF: 5 Referrals: Steffen Loera MD [Primary Care Provider] -
== END 2019-06-04 23:30 | disposition home or self-care (01) ==
PROVIDERS: Emergency Provider Emergency Medicine; PCP Family Medicine
DX: R60.9 Edema, unspecified (principal)
CPT/HCPCS: 93971; 99282; 99283

== ENCOUNTER 2019-06-19 15:18 | Outpatient (RCR) | payer OTHER, MEDICAID, SELFPAY ==
--- NOTE | 2019-06-19 17:53 | PT.OIE ---
Current Diagnoses Pain in right knee (06/19/19) Low back pain (06/19/19) Difficulty in walking, not elsewhere classified (06/19/19) Abnormal posture (06/19/19) Weakness (06/19/19) Past Medical History (Last Reviewed 06/05/19 @ 03:06 by Glen Franklin DO) Afib (Acute) Depression (Chronic) PTSD (post-traumatic stress disorder) (Chronic) Provider Visit Care Team Role Provider Type Steffen Loera MD Attending Provider Physician Primary Care Provider Specialty: Family Practice Address: [address] [place] [address], [employer] Email: [email or web address] Therapy Initial Evaluation PT-OP-A Visit Information Start: 05/22/19 09:40 Freq: Status: Active Protocol: Document 06/19/19 16:02 [facility] (Rec: 06/19/19 16:49 [facility] [id number]) Out-Patient Physical Therapy Visit Information Visit Information Visit Type Initial Evaluation Visit Start Time 16:00 Visit Stop Time 17:00 Total Visit Minutes 60 Visit Number 1 Number of CR[employer]ION WORKER Visits 0 PT-OP-B Current Condition Start: 05/22/19 09:40 Freq: Status: Active Protocol: Document 06/19/19 16:02 [facility] (Rec: 06/19/19 16:49 [facility] [id number]) Current Condition History of Current Condition Onset Date chronic Current Complaints LBP with radiular pain down RLE & R Knee pain History of Current Condition Pt reports about 35 years ago she was working at [employer] and was picking up a box of meat and someone set some bun racks down so her upper body kept turning and lower body was stopped. Pt reports disc degeneration in MRI. FOr her knee, she was sitting on her leg about 7 months ago and straighted your knee out first before lifting her butt and strained her knee. Pt reports pain is getting worse and she is having trouble getting in/ out of bed and up/down steps. Pt reprots yesterday it popped and she had inc trouble moving it. Pt reports pain is constant. Pt had a trip that she returned from about 2 weeks ago and her RLE was swollen and was given diaretic to dec swelling (no DVT) , but swelling is still there. No hx of swelling issues. Pt reports mini stroke in jul 2017. Pt reports knee gives out when walking Prior Treatments and Tests MRI on back, no imaging on knee, no injections, PT for back over a decade ago (unsure when) Treatment Goals Patient/Caregiver Goals Pt wants to be able to walk around longer distance & do more activity PT-OP-C Subjective Start: 05/22/19 09:40 Freq: Status: Active Protocol: Document 06/19/19 16:02 [facility] (Rec: 06/19/19 16:49 [facility] [id number]) Patient Questionnaires Lower Extremity Functional Scale LEFS Score 10 LEFS Impairment 80 to 99% Impaired (Score 1-16 ) OP-PT Pain Assessment Location R knee Pain Location Details ant knee Intensity 5 Scale Used Numeric (1 - 10) Description Throbbing Description- Other worst 9/10 Frequency Constant Radiating Location low back down ant leg then into lat and ant & post lower leg Pain Aggravating Factors Sitting Walking Stair Climbing Other Pain Aggravating Factors getting up from bed, extended pressure on RLE Pain Alleviating Factors Heat Massage Elevation Other Pain Alleviating Factors distract w/other activities PT-OP-G Mobility & Gait Start: 05/22/19 09:40 Freq: Status: Active Protocol: Document 06/19/19 16:02 [facility] (Rec: 06/19/19 16:49 [facility] [id number]) OP Gait Assessment Comments Gait Comments Pt has significantly dec push off and lat leaning B. PT-OP-J Posture/Palpation/Skin Start: 05/22/19 09:40 Freq: Status: Active Protocol: Document 06/19/19 16:02 [facility] (Rec: 06/19/19 16:49 [facility] [id number]) Posture Evaluation Juan Postural Classification System Juan Postural Classifications Posterior/Posterior Vertebral Compression Test 0 Elbow Flexion Test 0 Lumbar Protective Mechanism Left AP 0 Lumbar Protective Mechanism Right AP 0 Lumbar Protective Mechanism Left PA 0 Lumbar Protective Mechanism Right PA 0 PT-OP-K Range of Motion Start: 05/22/19 09:40 Freq: Status: Active Protocol: Document 06/19/19 16:02 [facility] (Rec: 06/19/19 16:49 [facility] [id number]) Lumbar Spine Range of Motion Lumbar Spine Active Degrees Testing Position Standing Flexion 40 Extension 15 Rotation Left 45 Rotation Right 45 Lateral Flexion Left 25 Lateral Flexion Right 25 Comments pain R SB & flex PT-OP-L Special Tests Start: 05/22/19 09:40 Freq: Status: Active Protocol: Document 06/19/19 16:02 [facility] (Rec: 06/19/19 16:49 [facility] [id number]) Special Tests Lumbar Spine Special Tests SLR Test Results L HS WNL; R postive at 70 w/ LBP Slump Test Results positive R PT-OP-M Strength Start: 05/22/19 09:40 Freq: Status: Active Protocol: Document 06/19/19 16:02 [facility] (Rec: 06/19/19 16:49 [facility] [id number]) Hip Strength Hip Manual Muscle Testing Right Flexion (L2) 3 Fair Extension (S1) 3+ Fair+ Abduction 3 Fair External Rotation 3 Fair Internal Rotation 3+ Fair+ Comments pain with flex, ER &IR Left Flexion (L2) 4- Good- Extension (S1) 3+ Fair+ Abduction 3+ Fair+ External Rotation 4+ Good+ Internal Rotation 5 Normal Knee Strength Knee Manual Muscle Testing Right Flexion (S2) 3 Fair Extension (L3) 3+ Fair+ Comments pain Left Flexion (S2) 4+ Good+ Extension (L3) 5 Normal Ankle/Foot Strength Ankle and Foot Manual Muscle Testing Right Dorsiflexion (L4) 3+ Fair+ Plantarflexion (S1) 3 Fair Comments tested seated Left Dorsiflexion (L4) 5 Normal Plantarflexion (S1) 5 Normal Comments tested seated PT-OP-Q Treatments Start: 05/22/19 09:40 Freq: Status: Active Protocol: Document 06/19/19 16:02 [facility] (Rec: 06/19/19 16:49 [facility] [id number]) Therapeutic Exercises Supine Exercises hip rotation Supine Exercise Name in neutral, abd &add Side right Reps/Minutes 10 ea PT-OP-R Modalities Start: 05/22/19 09:40 Freq: Status: Active Protocol: Document 06/19/19 16:02 [facility] (Rec: 06/19/19 16:49 [facility] [id number]) Hot Pack/Cold Pack Treatment Hot Pack Location lumbar & R Knee Patient Position Hooklying Treatment Duration (minutes) 15 PT-OP-T Assessment and Plan Start: 05/22/19 09:40 Freq: Status: Active Protocol: Document 06/19/19 16:02 [facility] (Rec: 06/19/19 16:49 [facility] [id number]) Physical Therapy Assessment Rehab Potential Rehabilitation Potential Good Evaluation Complexity Number of Personal Factors/Comorbidities 3 or More Number of Body Systems Impaired 4 or More Clinical Presentation at Evaluation Evolving Impairments Impairments Activity Tolerance Functional Activities Functional Mobility Gait Pain Posture ROM Soft Tissue Mobility Strength Goals LEFS Impairment 10 Short Term Goal (STG) Pt will inc score ot 30 to show improvement in functional ability. STG Duration 07/21/19 Tellers Supervisor Goal (LTG) Pt will inc score to 50 in order to show improvement in ability to do ADLs and daily activities. LTG Duration 08/21/19 walking Short Term Goal (STG) Pt will present with efficient postural alignment with no more than min cuieng in order to allow for improved efficiency of core & LE for gait. STG Duration 07/20/19 Senior Living Goal (LTG) Pt will be able to walk for 30 min with no more than 2 point inc in pain. LTG Duration 08/21/19 strength Short Term Goal (STG) Pt will be indep with HEP STG Duration 07/20/19 [employer]ers Supervisor Goal (LTG) Pt will have 4+/5 BLE strength and 3/5 LPM, VCT & EFT in order to demonstrate improved core stability & LE strength in order to allow pt to participate in ADLs without inc pain. LTG Duration 08/20/19 Assessment Summary Assessment Pt presents with LBP with RLE radicular pain and R knee pain consistant with degeneration present in imaging. No special tests done today for R knee pain, but pt does have significantly dec RLE strength which likely contributes to this pain. She has impaired posture and no core initiation in standing testing. She would benefit from skilled PT in order to address her gait dysfunctions, improve her posture, inc strength and ROM and dec pain. Physical Therapy Plan Frequency and Duration Frequency of Treatment 2x/Week Duration of Treatment 2 months Plan of Care Start Date 06/20/19 Plan of Care End Date 08/21/19 Therapeutic Interventions Therapeutic Interventions Balance Training Gait Training Home Exercise Program Joint Mobilizations Manual Therapy Neuromuscular Re-education Patient/Caregiver Education Self-Care/Home Management Soft Tissue Mobilization Taping Therapeutic Activities Therapeutic Exercises Modalities Cold Pack/Ice Massage Electric Stimulation Hot Packs Infrared Therapy Iontophoresis Traction- Mechanical Ultrasound Next Visit Focus/Plan Next Note Type Treatment Note Next Visit Plan stepper, estim, core exercises & gentle flexibility.
--- NOTE | 2019-06-19 17:54 | PT.OPPOC ---
Current Diagnoses Pain in right knee (06/19/19) Low back pain (06/19/19) Difficulty in walking, not elsewhere classified (06/19/19) Abnormal posture (06/19/19) Weakness (06/19/19) Provider Visit Care Team Role Provider Type Steffen Loera MD Attending Provider Physician Primary Care Provider Specialty: Family Practice Address: [address] [place] [address], [facility] Email: [email or web address] Plan Of Care PT-OP-T Assessment and Plan Start: 05/22/19 09:40 Freq: Status: Active Protocol: Document 06/19/19 16:02 [facility] (Rec: 06/19/19 16:49 [facility] [id number]) Physical Therapy Assessment Rehab Potential Rehabilitation Potential Good Evaluation Complexity Number of Personal Factors/Comorbidities 3 or More Number of Body Systems Impaired 4 or More Clinical Presentation at Evaluation Evolving Impairments Impairments Activity Tolerance Functional Activities Functional Mobility Gait Pain Posture ROM Soft Tissue Mobility Strength Goals LEFS Impairment 10 Short Term Goal (STG) Pt will inc score ot 30 to show improvement in functional ability. STG Duration 07/21/19 [employer] Developer Goal (LTG) Pt will inc score to 50 in order to show improvement in ability to do ADLs and daily activities. LTG Duration 08/21/19 walking Short Term Goal (STG) Pt will present with efficient postural alignment with no more than min cuieng in order to allow for improved efficiency of core & LE for gait. STG Duration 07/20/19 Jail Goal (LTG) Pt will be able to walk for 30 min with no more than 2 point inc in pain. LTG Duration 08/21/19 strength Short Term Goal (STG) Pt will be indep with HEP STG Duration 07/20/19 Jail Goal (LTG) Pt will have 4+/5 BLE strength and 3/5 LPM, VCT & EFT in order to demonstrate improved core stability & LE strength in order to allow pt to participate in ADLs without inc pain. LTG Duration 08/20/19 Assessment Summary Assessment Pt presents with LBP with RLE radicular pain and R knee pain consistant with degeneration present in imaging. No special tests done today for R knee pain, but pt does have significantly dec RLE strength which likely contributes to this pain. She has impaired posture and no core initiation in standing testing. She would benefit from skilled PT in order to address her gait dysfunctions, improve her posture, inc strength and ROM and dec pain. Physical Therapy Plan Frequency and Duration Frequency of Treatment 2x/Week Duration of Treatment 2 months Plan of Care Start Date 06/20/19 Plan of Care End Date 08/21/19 Therapeutic Interventions Therapeutic Interventions Balance Training Gait Training Home Exercise Program Joint Mobilizations Manual Therapy Neuromuscular Re-education Patient/Caregiver Education Self-Care/Home Management Soft Tissue Mobilization Taping Therapeutic Activities Therapeutic Exercises Modalities Cold Pack/Ice Massage Electric Stimulation Hot Packs Infrared Therapy Iontophoresis Traction- Mechanical Ultrasound Next Visit Focus/Plan Next Note Type Treatment Note Next Visit Plan stepper, estim, core exercises & gentle flexibility. Plan of Care Dates Plan of Care Start Date 06/20/19 Plan of Care End Date 08/21/19 Please Sign and Return: I have reviewed this Plan of Care and certify that the skilled therapy services above are required to meet the patient?s needs. Physician Signature Date Printed Name and Credentials Clinical Instructor Signature Printed Name and Credentials
--- NOTE | 2019-07-23 14:45 | PT.OPDS ---
Current Diagnoses Pain in right knee (06/19/19) Low back pain (06/19/19) Difficulty in walking, not elsewhere classified (06/19/19) Abnormal posture (06/19/19) Weakness (06/19/19) Provider Visit Care Team Role Provider Type Steffen Loera MD Attending Provider Physician Primary Care Provider Specialty: Family Practice Address: [address] [place] [address], [facility] Email: [email or web address] Visit Number Visit Number 1 Discharge Summary PT-OP-B Current Condition Start: 05/22/19 09:40 Freq: Status: Active Protocol: Document 06/19/19 16:02 [facility] (Rec: 06/19/19 16:49 [facility] [id number]) Current Condition History of Current Condition Onset Date chronic Current Complaints LBP with radiular pain down RLE & R Knee pain History of Current Condition Pt reports about 35 years ago she was working at [email or web address] and was picking up a box of meat and someone set some bun racks down so her upper body kept turning and lower body was stopped. Pt reports disc degeneration in MRI. FOr her knee, she was sitting on her leg about 7 months ago and straighted your knee out first before lifting her butt and strained her knee. Pt reports pain is getting worse and she is having trouble getting in/ out of bed and up/down steps. Pt reprots yesterday it popped and she had inc trouble moving it. Pt reports pain is constant. Pt had a trip that she returned from about 2 weeks ago and her RLE was swollen and was given diaretic to dec swelling (no DVT) , but swelling is still there. No hx of swelling issues. Pt reports mini stroke in jul 2017. Pt reports knee gives out when walking Prior Treatments and Tests MRI on back, no imaging on knee, no injections, PT for back over a decade ago (unsure when) Treatment Goals Patient/Caregiver Goals Pt wants to be able to walk around longer distance & do more activity PT-OP-C Subjective Start: 05/22/19 09:40 Freq: Status: Active Protocol: Document 06/19/19 16:02 [facility] (Rec: 06/19/19 16:49 [facility] [id number]) Patient Questionnaires Lower Extremity Functional Scale LEFS Score 10 LEFS Impairment 80 to 99% Impaired (Score 1-16 ) OP-PT Pain Assessment Location R knee Pain Location Details ant knee Intensity 5 Scale Used Numeric (1 - 10) Description Throbbing Description- Other worst 9/10 Frequency Constant Radiating Location low back down ant leg then into lat and ant & post lower leg Pain Aggravating Factors Sitting Walking Stair Climbing Other Pain Aggravating Factors getting up from bed, extended pressure on RLE Pain Alleviating Factors Heat Massage Elevation Other Pain Alleviating Factors distract w/other activities PT-OP-G Mobility & Gait Start: 05/22/19 09:40 Freq: Status: Active Protocol: Document 06/19/19 16:02 [facility] (Rec: 06/19/19 16:49 [facility] [id number]) OP Gait Assessment Comments Gait Comments Pt has significantly dec push off and lat leaning B. PT-OP-J Posture/Palpation/Skin Start: 05/22/19 09:40 Freq: Status: Active Protocol: Document 06/19/19 16:02 [facility] (Rec: 06/19/19 16:49 [facility] [id number]) Posture Evaluation [facility] Postural Classification System [facility] Postural Classifications Posterior/Posterior Vertebral Compression Test 0 Elbow Flexion Test 0 Lumbar Protective Mechanism Left AP 0 Lumbar Protective Mechanism Right AP 0 Lumbar Protective Mechanism Left PA 0 Lumbar Protective Mechanism Right PA 0 PT-OP-K Range of Motion Start: 05/22/19 09:40 Freq: Status: Active Protocol: Document 06/19/19 16:02 [facility] (Rec: 06/19/19 16:49 [facility] [id number]) Lumbar Spine Range of Motion Lumbar Spine Active Degrees Testing Position Standing Flexion 40 Extension 15 Rotation Left 45 Rotation Right 45 Lateral Flexion Left 25 Lateral Flexion Right 25 Comments pain R SB & flex PT-OP-L Special Tests Start: 05/22/19 09:40 Freq: Status: Active Protocol: Document 06/19/19 16:02 [facility] (Rec: 06/19/19 16:49 [facility] [id number]) Special Tests Lumbar Spine Special Tests SLR Test Results L HS WNL; R postive at 70 w/ LBP Slump Test Results positive R PT-OP-M Strength Start: 05/22/19 09:40 Freq: Status: Active Protocol: Document 06/19/19 16:02 [facility] (Rec: 06/19/19 16:49 [facility] [id number]) Hip Strength Hip Manual Muscle Testing Right Flexion (L2) 3 Fair Extension (S1) 3+ Fair+ Abduction 3 Fair External Rotation 3 Fair Internal Rotation 3+ Fair+ Comments pain with flex, ER &IR Left Flexion (L2) 4- Good- Extension (S1) 3+ Fair+ Abduction 3+ Fair+ External Rotation 4+ Good+ Internal Rotation 5 Normal Knee Strength Knee Manual Muscle Testing Right Flexion (S2) 3 Fair Extension (L3) 3+ Fair+ Comments pain Left Flexion (S2) 4+ Good+ Extension (L3) 5 Normal Ankle/Foot Strength Ankle and Foot Manual Muscle Testing Right Dorsiflexion (L4) 3+ Fair+ Plantarflexion (S1) 3 Fair Comments tested seated Left Dorsiflexion (L4) 5 Normal Plantarflexion (S1) 5 Normal Comments tested seated PT-OP-T Assessment and Plan Start: 05/22/19 09:40 Freq: Status: Active Protocol: Document 07/23/19 14:43 [facility] (Rec: 07/23/19 14:44 [facility] [id number]) Physical Therapy Plan Discharge Physical Therapy Discharge Reasons Patient Request Discharge Comments Pt cancelled all appointments and requested d/c. She attended only IE.
== END 2019-09-25 15:45 | disposition home or self-care (01) ==
LOC: PHYS 15:18
PROVIDERS: PCP Family Medicine; Visit Provider Family Medicine
DX: M25.561 Pain in right knee (principal); M54.5 Low back pain
CPT/HCPCS: 97010; 97162; 97530

== ENCOUNTER → 2019-09-27 11:52 | Outpatient (CLI) | payer OTHER, MEDICAID, SELFPAY ==
--- NOTE | 2019-09-27 11:53 | DI.RAD.S_ITS ---
PROCEDURE: XR CHEST 2V INDICATIONS: shortness of breath TECHNIQUE: 2 views of the chest were acquired. COMPARISON: [facility], CR, XR CHEST 2V, 05/07/2018, 17:57. FINDINGS: Surgical changes and devices: None. Lungs and pleura: Lungs are clear. No pleural effusions or pneumothorax. Mediastinum: Mediastinal contours are normal. Heart size is normal. Bones and chest wall: No suspicious bony abnormalities. Soft tissues appear unremarkable. IMPRESSION: No acute disease. Dictated by: Brian Kidd M.D. on 09/27/2019 at 13:55 Approved by: Brian Kidd M.D. on 09/27/2019 at 13:56
== END ==
PROVIDERS: PCP Family Medicine; Visit Provider Family Medicine
DX: R06.02 Shortness of breath (principal)
CPT/HCPCS: 71046

== ENCOUNTER → 2019-10-25 15:21 | Outpatient (CLI) | payer OTHER, MEDICAID, SELFPAY ==
--- NOTE | 2019-11-01 08:02 | PM.PFT.1 ---
Pulmonary Function Test Referral & Results Date Patient Seen: 10/25/19 Requesting provider: Steffen Loera Indication: Restrictive lung disease Results: The spirometry demonstrates an FVC of 2.20 L which is 73% of predicted. The FEV1 was measured at 1.81 L which is 76% of predicted. The FEV1/FVC ratio was 82 which is 102% of predicted. Following the administration of bronchodilator there was no appreciable change. Lung volumes show an SVC of 2.33 L which is 83% of predicted. The diffusing capacity was measured at 14.77 which is 78% of predicted. No hemoglobin value was provided, so no correction for potential anemia could be made, if appropriate. The maximum voluntary ventilation was slightly reduced Interpretation: This study demonstrates perhaps mild obstructive lung disease based on slight reduction in FEV1 although the FEV1/FVC ratio is normal and there is no evidence of benefit following bronchodilator administration There is a mild reduction lung volumes suggesting the possibility of mild restrictive lung disease Diffusing capacity is minimally reduced unless patient is anemic, suggesting minor disease the capillary alveolar level Altogether this could be consistent with very mild COPD. Clinical correlation suggested
== END ==
PROVIDERS: PCP Family Medicine; Visit Provider Family Medicine
DX: J98.4 Other disorders of lung (principal); J98.8 Other specified respiratory disorders
CPT/HCPCS: 94060; 94726; 94729

== ENCOUNTER 2019-11-01 19:09 | Emergency (ER) | payer OTHER, MEDICAID, SELFPAY ==
[2019-11-01 19:29] VITALS: PULSE 57; RESP 22
[2019-11-01 20:16] LABS: Bacteria Urine Occasional (0-1); Culture Indicated Urine Cult Not Indicated; Mucus Urine 2+ (Negative); RBC Urine 1-5/HPF (0-5/HPF); Squamous Epithelial Cell Urine 1-5 /HPF (0-5/HPF); Transitional Epi Cells Urine 1-5/HPF (0-5/HPF); WBC Urine 1-5/HPF (0-5/HPF)
--- NOTE | 2019-11-01 20:47 | ED.FEMALEGU ---
HPI - Female Genitourinary General Chief complaint: Urogenital-Female Stated complaint: STATES UTI, NAUSEA, HEADACHE Time Seen by Provider: 11/01/19 20:47 Source: patient Mode of arrival: Ambulatory Limitations: no limitations History of Present Illness HPI Narrative: 53-year-old female comes to the part with concern for UTI. Patient states she has been having frequency, dysuria but also vaginal odor. She states she has noticed some discharge as well. She complains of a little bit of abdominal pain. Little bit of nausea but no vomiting. No fevers or chills. No diarrhea constipation. Patient states she has not been sexually active since 2011. Related Data Previous Rx's Medication Instructions Recorded Disabled Parking Permit #1 ea 04/04/19 docusate calcium 240 mg capsule See Rx Instructions .ROUTE 09/24/19 .COMPLEX #60 capsule escitalopram oxalate 20 mg tablet 20 mg PO DAILY #90 tab 10/07/19 hydroxyzine pamoate 25 mg capsule 25 mg PO .COMPLEX #270 caplet 10/07/19 levothyroxine 50 mcg tablet 50 mcg PO DAILY #180 tab 10/07/19 propranolol 20 mg tablet 20 mg PO BID #180 tab 10/07/19 naproxen 500 mg tablet 500 mg PO BID #30 tab 10/15/19 erythromycin 5 mg/gram (0.5 %) eye 1 cm EYE-LEFT Q8H #1 gram 10/26/19 ointment miconazole nitrate [Monistat 7] 1 package VAGINAL .qday #44 package 11/01/19 Allergies Allergy/AdvReac Type Severity Reaction Status Date / Time lorazepam [From Ativan] Allergy Intermediate itching Verified 10/26/19 11:29 sertraline [SERTRALINE] Allergy Unknown Verified 10/26/19 11:29 codeine [CODEINE] AdvReac Mild vomiting Verified 10/26/19 11:29 hydrocodone [HYDROCODONE] AdvReac Mild vomiting Verified 10/26/19 11:29 ibuprofen [IBUPROFEN] AdvReac Mild gi upset Verified 10/26/19 11:29 Penicillins [PENICILLINS] AdvReac Mild vomiting Verified 10/26/19 11:29 Sulfa (Sulfonamide AdvReac Mild headache Verified 10/26/19 11:29 Antibiotics) [SULFA (SULFONAMIDE ANTIBIOTICS)] Review of Systems Review of Systems ROS Unobtainable: All systems reviewed & are unremarkable except as noted in HPI and below Patient History alcohol intake frequency: 0-2 drinks per day Substance Use Type: does not use Exam Narrative Exam Narrative: GENERAL: Alert and oriented x three, obese, well-appearing female in mild distress. HEENT: Head normocephalic, atraumatic, EOMI, pupils reactive, face symmetric, moist mucous membranes NECK: Supple, full range of motion CARDIOVASCULAR: Regular rate and rhythm without murmurs, rubs or gallops. RESPIRATORY: Breath sounds equal bilaterally, no wheezes rales or rhonchi. ABDOMEN: Soft, positive for suprapubic tenderness. Mild RUQ tenderness. Normoactive bowel sounds all 4 quadrants. No guarding or rebound, rigidity, no mass : No CVA tenderness. Female: external vaginal exam is normal, no vaginal bleeding, mild whitish discharge, no cervical motion tenderness, patient is tender along the leonard of the vagina, normal speculum exam, no adnexal tenderness/mass. Bimanual exam is normal, no enlarged or tender uterus. EXTREMITIES: Normal range of motion, no clubbing or edema. Neurovascularly intact NEUROLOGICAL: Cranial nerves II through XII grossly intact. Moving all extremities SKIN: Warm, dry, no petechiae, no rashes or lesions. Initial Vital Signs Initial Vital Signs: Vital Signs Pulse Rate 57 L 11/01/19 19:29 Respiratory Rate 22 11/01/19 19:29 Course Orders Ordered: ED Orders 11/01/19 21:24 Genital Culture Stat Wet Prep Tric BV Keira Stat Vital Signs Vital signs: Vital Signs - 8 hr 11/01/19 21:36 Pulse Rate 64 Respiratory Rate 18 Pulse Oximetry 97 MDM - Female Genitourinary Lab Data Attestation: I reviewed the patient's lab results. Labs: Lab Results 11/01/19 Range/Units 19:45 Urine RBC 1-5/hpf (0-5/HPF) Urine WBC 1-5/hpf (0-5/HPF) Ur Squamous Epith Cells 1-5 /hpf (0-5/HPF) Ur Transition Epith Cell 1-5/hpf (0-5/HPF) Urine Bacteria Occasional (0-1) (None) Urine Mucus 2+ H (Negative) Ur Culture Indicated? Cult not indicated Urine Dip Bedside Urine Glucose Negative Bedside Urine Bilirubin - Negative Bedside Urine Ketone - Negative Urine Specific [place] 1.020 Bedside Urine Occult Blood + Bedside Urine pH 6.0 Bedside Urine Protein +/- 15 Bedside Urine Urobilinogen +/- 1mg Bedside Urine Nitrite - Negative Bedside Urine Leukocytes - Negative Esterase MDM Narrative Medical decision making narrative: Patient's urine does not show any clear signs of infection, patient complains of vaginal irritation a little bit of discharge. On exam she is quite uncomfortable she does not have a large amount of discharge but does have a small amount. Patient was started on Monistat. We did discuss if she has any worsening symptoms or changing symptoms that she needs to return for repeat evaluation which patient feels comfortable with. Discharge Plan Departure Patient Disposition: Home Clinical Impression: Vaginitis Discharge Date/Time: 11/01/19 21:36 Activity Restrictions/Additional Instructions: Follow-up with your physician in the next week for recheck. Use medication as prescribed. You may take Tylenol up to a 1000 mg every 8 hours as needed for pain. Return to the emergency department for fevers greater 100.4 F, new or worsening abdominal pain, back pain or flank pain, persistent vomiting, new black or bloody stools, lightheadedness, passing out or other new or concerning symptoms. Prescriptions: New Monistat 7 2 % (100 mg)- 2 % (9 gram) comb pack,prefill appl, cream 1 package vaginal .qday Qty: 44 RF: 0 No Action naproxen 500 mg tablet 500 mg PO BID Qty: 30 RF: 0 erythromycin 5 mg/gram (0.5 %) ointment 1 cm EYE-LEFT Q8H Qty: 1 RF: 0 (DME) Disabled Parking Permit Qty: 1 RF: 0 docusate calcium [Stool Softener (docusate lisa)] 240 mg capsule See Rx Instructions .ROUTE .COMPLEX Qty: 60 RF: 2 escitalopram oxalate 20 mg tablet 20 mg PO DAILY Qty: 90 RF: 3 hydroxyzine pamoate 25 mg capsule 25 mg PO .COMPLEX Qty: 270 RF: 3 levothyroxine 50 mcg tablet 50 mcg PO DAILY Qty: 180 RF: 3 propranolol 20 mg tablet 20 mg PO BID Qty: 180 RF: 3 Referrals: Steffen Loera MD [Primary Care Provider] -
[2019-11-01 20:49] VITALS: BP 148/59; TEMP 36.6
[2019-11-01 21:36] VITALS: PULSE 64; RESP 18; O2SAT 97
== END 2019-11-01 21:36 | disposition home or self-care (01) ==
PROVIDERS: Emergency Provider Emergency Medicine; PCP Family Medicine
DX: N76.0 Acute vaginitis (principal)
CPT/HCPCS: 81003; 81015; 87070; 87205; 87210; 99283

== ENCOUNTER → 2019-11-28 14:40 | Outpatient (CLI) | payer OTHER, MEDICAID, SELFPAY ==
[2019-11-28 16:34] LABS: Vitamin B12 Reflex MMA if <400 552 pg/mL (239-931)
== END ==
PROVIDERS: PCP Family Medicine; Visit Provider Psychiatry & Neurology Neurology
DX: R41.89 Other symptoms and signs involving cognitive functions and awareness (principal)
CPT/HCPCS: 36415; 82607

== ENCOUNTER 2019-12-07 16:48 | Emergency (ER) | payer OTHER, MEDICAID, SELFPAY ==
[2019-12-07 17:00] VITALS: BP 175/82; PULSE 80; RESP 16; O2SAT 100
[2019-12-07 17:13] VITALS: TEMP 36.2
[2019-12-07] MEDS: ONDANSETRON 4 MG/2 ML INJ IV (17:15)
--- NOTE | 2019-12-07 17:28 | PC.NURSE ---
Pt's spouse confirms pt drank about a cup of THC soda and took her normal night meds for depression and anxiety. pt resting on stretcher and states can i go to sleep now allowed to rest, given zofran for nausea/vomiting.
[2019-12-07 17:31] LABS: Add Manual Diff / Slide Review NO; Basophils Absolute Auto 100 /uL (0-100); Basophils Percent Auto 1.2 % (0-2); Eosinophils Absolute Auto 100 /uL (0-450); Eosinophils Percent Auto 1.1 % (2-4); Hemoglobin 13.4 g/dL (12.0-16.0); Lymphocytes Absolute Auto 3700 /uL (1100-4500); Lymphocytes Percent Auto 29.3 % (25-40); Mean Corpuscular HGB Conc 34.3 % (30-36); Mean Corpuscular Hemoglobin 27.5 PG (26-34); Mean Corpuscular Volume 80.1 fL (80-100); Monocytes Absolute Auto 800 /uL (0-900); Monocytes Percent Auto 6.7 % (3-14); Neutrophils Absolute Auto 7800 /uL (1500-7000); Neutrophils Percent Auto 61.7 % (50-75); Platelet Count 489 X10^3/uL (150-400); Red Blood Cell Count 4.87 X10^6/uL (4.0-5.2); Red Cell Distribution Width 13.4 % (11.6-14.8); White Blood Cell Count 12.7 X10^3/uL (4.5-11.0)
[2019-12-07 17:42] LABS: Acetaminophen < 10 ug/mL (10-30); Alanine Aminotransferase 28 IU/L (<35); Albumin 4.6 g/dL (3.5-5.0); Albumin Globulin Ratio 1.5 (1.0-2.8); Alkaline Phosphatase 99 U/L (38-126); Aspartate Aminotransferase 28 IU/L (14-36); Bilirubin Total 0.4 mg/dL (0.2-1.3); Blood Urea Nitrogen 18 mg/dL (7-17); Calcium 9.4 mg/dL (8.4-10.2); Carbon Dioxide 23 mmol/L (22-32); Chloride 103 mmol/L (98-107); Estimated Glomerular Filt Rate > 60.0 mL/min (>60); Ethanol (ETOH) < 10 mg/dL; Glucose 174 mg/dL (70-100); HEMOLYSIS < 15 (0-50); Potassium 4.3 mmol/L (3.4-5.1); Salicylate < 1.0 mg/dL (<20); Sodium 138 mmol/L (137-145); Total Protein 7.6 g/dL (6.3-8.2)
--- NOTE | 2019-12-07 17:56 | ED_ITS ---
HPI - Overdose General Chief Complaint: Toxicology Problem Stated Complaint: Med Reaction Time Seen by Provider: 12/07/19 16:50 Source: patient and EMS Mode of arrival: EMS Limitations: no limitations History of Present Illness HPI Narrative: 54F nonsmoker with history of anxiety presents by EMS due to feeling 1 day really anxious and nauseated with the possibility of visual hallucinations after consuming which she thought was CBD soda. She with denies having consumed this type of of Lovenox with the event that marijuana and drink before. She denies any chest pain or shortness of breath. She has had some adam sea and vomiting. She denies of any alcohol or street drugs. MD complaint: accidental overdose Onset (ago): minute(s) Timing confirmed by: spouse How Overdose Was Discovered: called family/friend Context: Accidental Overdose: uncertain what happened Treatments Prior to Arrival: none Related Data Home Medications Medication Instructions Recorded Confirmed hydroxyzine HCl 25 mg tablet 50 mg PO .Q6 PRN tab 11/06/19 propranolol 20 mg tablet 40 mg PO BID 11/06/19 Previous Rx's Medication Instructions Recorded Disabled Parking Permit #1 ea 04/04/19 docusate calcium 240 mg capsule See Rx Instructions .ROUTE 09/24/19 .COMPLEX #60 capsule escitalopram oxalate 20 mg tablet 20 mg PO DAILY #90 tab 10/07/19 levothyroxine 50 mcg tablet 50 mcg PO DAILY #180 tab 10/07/19 naproxen 500 mg tablet 500 mg PO BID #30 tab 10/15/19 erythromycin 5 mg/gram (0.5 %) eye 1 cm EYE-LEFT Q8H #1 gram 10/26/19 ointment miconazole nitrate [Monistat 7] 1 package VAGINAL .qday #44 package 11/01/19 Allergies Allergy/AdvReac Type Severity Reaction Status Date / Time lorazepam [From Ativan] Allergy Intermediate itching Verified 10/26/19 11:29 sertraline [SERTRALINE] Allergy Unknown Verified 10/26/19 11:29 codeine [CODEINE] AdvReac Mild vomiting Verified 10/26/19 11:29 hydrocodone [HYDROCODONE] AdvReac Mild vomiting Verified 10/26/19 11:29 ibuprofen [IBUPROFEN] AdvReac Mild gi upset Verified 10/26/19 11:29 Penicillins [PENICILLINS] AdvReac Mild vomiting Verified 10/26/19 11:29 Sulfa (Sulfonamide AdvReac Mild headache Verified 10/26/19 11:29 Antibiotics) [SULFA (SULFONAMIDE ANTIBIOTICS)] Review of Systems Constitutional Constitutional: Denies chills, Denies fatigue, Denies fever(s), Denies frequent falls, Denies lethargy and Denies weakness Eyes Eyes: Denies change in vision, Denies eye discharge, Denies irritation and Denies loss of vision ENT Ears, Nose, Mouth, and Throat: Denies change in voice, Denies dizziness, Denies neck pain, Denies sore throat and Denies throat swelling Cardiovascular Cardiovascular: Denies chest pain, Denies irregular heart rhythm, Denies lightheadedness, Denies palpitations, Denies dyspnea, Denies dyspnea on exertion and Denies orthopnea Respiratory Respiratory: Denies cough, Denies dyspnea, Denies dyspnea on exertion and Denies wheezing Gastrointestinal Gastrointestinal: Denies abdominal pain, Denies change in bowel habits, Denies diarrhea, Reports nausea and Reports vomiting Genitourinary Genitourinary: Denies hematuria, Denies flank pain, Denies urinary incontinence and Denies urinary urgency Musculoskeletal Musculoskeletal: Denies back pain, Denies muscle weakness, Denies neck pain, Denies numbness and Denies tingling Integumentary/Breasts Skin/Breast: Denies pruritus, Denies erythema, Denies rash and Denies wounds Neurologic Neurologic: Denies behavioral changes, Reports confusion, Denies dizziness, Denies frequent falls, Denies loss of vision, Denies numbness, Denies tingling and Denies weakness Psychiatric Psychiatric: Reports anxiety, Denies behavioral changes, Reports confusion, Denies depression, Reports visual hallucinations, Denies homicidal ideation and Denies suicidal ideation Endocrine Endocrine: Denies fatigue, Denies flushing and Denies palpitations Hematologic/Lymphatic Hematologic/Lymphatic: Denies easy bruising Allergic/Immunologic Allergic/Immunologic: Denies urticaria, Denies throat swelling and Denies wheezing Patient History Medical History Afib (Acute) Depression (Chronic) PTSD (post-traumatic stress disorder) (Chronic) Social History household members: spouse occupational status: unemployed Smoking Status: Never smoker Smoking Status: Never smoker alcohol intake frequency: 0-2 drinks per day Substance Use Type: does not use Exam Narrative Exam Narrative: GENERAL: [54] year old patient appears stated age. Obese and a bit disheveled, tearful, slurring her words a bit HEAD: Atraumatic. Normocephalic. EYES: Pupils equal round and reactive. Extraocular motions intact. No scleral icterus. No injection or drainage. ENT: Poor dentition throughout. Nose without bleeding, purulent drainage. Throat without erythema, tonsillar hypertrophy or exudate. Airway patent. NECK: Trachea midline. Non tender CARDIOVASCULAR: Regular rate and rhythm without murmurs, gallops, or rubs. RESPIRATORY: Clear to auscultation. Breath sounds equal bilaterally. No wheezes, rales, or rhonchi. GASTROINTESTINAL: Abdomen soft, non-tender, nondistended. EXTREMITIES: No edema or joint tenderness. BACK: Nontender without deformity or crepitance. No flank tenderness. NEURO: Sleepy but arousable SKIN: No rash or erythema of visible areas Initial Vital Signs Initial Vital Signs: Vital Signs Pulse Rate 80 12/07/19 17:00 Respiratory Rate 16 12/07/19 17:00 Blood Pressure 175/82 H 12/07/19 17:00 Pulse Oximetry 100 12/07/19 17:00 Course Orders Ordered: ED Orders 12/07/19 16:45 Complete Blood Count AUTO DIFF Stat 12/07/19 16:58 Urine Drug Screen, Rapid Stat 12/07/19 17:22 Acetaminophen Stat Comprehensive Metabolic Panel Stat Ethanol (ETOH) Stat Salicylate Stat Discontinued Medications Ondansetron HCl (Zofran) 4 mg IV NOW ONE Stop: 12/07/19 17:15 Last Admin: 12/07/19 17:15 Dose: 4 mg Documented by: HELLEN Ondansetron HCl (Zofran Odt Prepack) 1 bottle MISC SEEINSTR ONE Stop: 12/07/19 18:46 Vital Signs Vital signs: Vital Signs - 8 hr 12/07/19 17:00 12/07/19 17:13 12/07/19 18:17 Temperature 97.1 F L Pulse Rate 80 66 Respiratory Rate 16 Blood Pressure 175/82 H Blood Pressure [Left Arm] 144/63 H Pulse Oximetry 100 96 MDM - Overdose Lab Data Result diagrams: 12/07/19 16:45 12/07/19 17:22 Labs: Lab Results 12/07/19 12/07/19 12/07/19 Range/Units 16:45 16:45 17:22 WBC 12.7 H (4.5-11.0) X10^3/uL RBC 4.87 (4.0-5.2) X10^6/uL Hgb 13.4 (12.0-16.0) g/dL Hct 39.0 (36-46) % MCV 80.1 (80-100) fL MCH 27.5 (26-34) PG MCHC 34.3 (30-36) % RDW 13.4 (11.6-14.8) % Plt Count 489 H (150-400) X10^3/uL Neut % (Auto) 61.7 (50-75) % Lymph % (Auto) 29.3 (25-40) % Mckean % (Auto) 6.7 (3-14) % Eos % (Auto) 1.1 L (2-4) % Baso % (Auto) 1.2 (0-2) % Neut # (Auto) 7800 H (8509-1314) /uL Lymph # (Auto) 3700 (6800-6037) /uL Mckean # (Auto) 800 (0-900) /uL Eos # (Auto) 100 (0-450) /uL Baso # (Auto) 100 (0-100) /uL Sodium Cancelled 138 Potassium Cancelled 4.3 Chloride Cancelled 103 Carbon Dioxide Cancelled 23 BUN Cancelled 18 H Creatinine Cancelled 0.90 Estimated GFR Cancelled > 60.0 BUN/Creatinine Ratio Cancelled 20.0 Glucose Cancelled 174 H Calcium Cancelled 9.4 Total Bilirubin Cancelled 0.4 AST Cancelled 28 ALT Cancelled 28 Alkaline Phosphatase Cancelled 99 Total Protein Cancelled 7.6 Albumin Cancelled 4.6 Globulin Cancelled 3.0 Albumin/Globulin Ratio Cancelled 1.5 Salicylates < 1.0 (<20) mg/dL Acetaminophen < 10 L (10-30) ug/mL Ethyl Alcohol < 10 ( - 10) mg/dL Discharge Plan Departure Patient Disposition: Home Clinical Impression: Anxiety Nausea & vomiting Qualifiers: Vomiting type: unspecified Vomiting Intractability: non-intractable Qualified Code(s): R11.2 - Nausea with vomiting, unspecified Accidental overdose Qualifiers: Encounter type: initial encounter Qualified Code(s): T50.901A - Poisoning by unspecified drugs, medicaments and biological substances, accidental (unintentional), initial encounter Activity Restrictions/Additional Instructions: *You have been diagnosed with [accidental THC overdose ] *What to do: *Take medications as directed *Follow up with your primary care provider in 2-3 days, call for an appointment. Let them know you were seen in the Emergency Department and that we ask that you be seen in follow up *Return to ER if you should have any new, worsening or concerning symptoms Prescriptions: No Action naproxen 500 mg tablet 500 mg PO BID Qty: 30 RF: 0 erythromycin 5 mg/gram (0.5 %) ointment 1 cm EYE-LEFT Q8H Qty: 1 RF: 0 (DME) Disabled Parking Permit Qty: 1 RF: 0 docusate calcium [Stool Softener (docusate lisa)] 240 mg capsule See Rx Instructions .ROUTE .COMPLEX Qty: 60 RF: 2 propranolol 20 mg tablet 40 mg PO BID RF: 0 hydroxyzine HCl 25 mg tablet 50 mg PO .Q6 PRNRF: 0 escitalopram oxalate 20 mg tablet 20 mg PO DAILY Qty: 90 RF: 3 levothyroxine 50 mcg tablet 50 mcg PO DAILY Qty: 180 RF: 3 Monistat 7 2 % (100 mg)- 2 % (9 gram) comb pack,prefill appl, cream 1 package vaginal .qday Qty: 44 RF: 0 Referrals: Steffen Loera MD [Primary Care Provider] -
[2019-12-07 18:17] VITALS: BP 144/63; PULSE 66; O2SAT 96
[2019-12-07] MEDS: ONDANSETRON 4 MG ODT PREPACK 1 BOTTLE MISC (18:55)
[2019-12-07 18:57] VITALS: BP 148/80; PULSE 67; O2SAT 94
== END 2019-12-07 19:06 | disposition home or self-care (01) ==
PROVIDERS: Emergency Provider Emergency Medicine; PCP Family Medicine
DX: F41.9 Anxiety disorder, unspecified (principal); R11.2 Nausea with vomiting, unspecified; T50.901A Poisoning by unspecified drugs, medicaments and biological substances, accidental (unintentional), initial encounter
CPT/HCPCS: 36415; 80053; 80320; 80329; 85025; 96374; 99284; G0480; J2405

== ENCOUNTER → 2020-01-11 12:53 | Outpatient (CLI) | payer OTHER, MEDICAID, SELFPAY | PROVIDERS: PCP Family Medicine; Visit Provider Nurse Practitioner | DX: R10.9 Unspecified abdominal pain (principal); R31.9 Hematuria, unspecified | CPT/HCPCS: 87086; 87210 ==

== ENCOUNTER → 2020-01-22 11:32 | Outpatient (CLI) | payer OTHER, MEDICAID, SELFPAY ==
--- NOTE | 2020-01-22 11:34 | DI.RAD.S_ITS ---
PROCEDURE: XR WRIST LT MIN 3V INDICATIONS: Pain TECHNIQUE: 4/views of the wrist were acquired. COMPARISON: None. FINDINGS: Bones: No fractures or dislocations. No suspicious bony lesions. Scaphoid view: No trauma. Soft tissues: No suspicious soft tissue calcifications. IMPRESSION: No trauma found, source of wrist pain is not seen. Dictated by: Anthony Davila M.D. on 01/22/2020 at 12:25 Approved by: Anthony Davila M.D. on 01/22/2020 at 12:25
== END ==
PROVIDERS: PCP Family Medicine; Referring Provider Family Medicine; Visit Provider Family Medicine
DX: M25.532 Pain in left wrist (principal)
CPT/HCPCS: 73110

== ENCOUNTER → 2020-01-27 13:52 | Outpatient (CLI) | payer OTHER, MEDICAID, SELFPAY ==
--- NOTE | 2020-01-27 13:54 | DI.US.S_ITS ---
PROCEDURE: US PELVIC COMPLETE INDICATIONS: PAIN TECHNIQUE: Real-time scanning was performed of the pelvic organs, with image documentation. Additional endovaginal scanning was necessary due to incomplete visualization of the adnexal and endometrial structures by transabdominal scanning. COMPARISON: [facility], US, PELVIC COMPLETE, 06/23/2011, 10:33. FINDINGS: Transabdominal scanning: Limited scanning through the kidneys shows no hydronephrosis. No pathologic free abdominal or pelvic fluid. Endovaginal scanning: Uterus: Surgically absent. Ovaries: Surgically absent. No adnexal masses seen. IMPRESSION: No source for pelvic pain identified. If pain persists, consider CT. Dictated by: Emile SCHMIDT Interpreted: Gladis Sumner MD on 01/27/2020 at 16:37 Approved by: Ivania Mabry M.D. on 01/28/2020 at 11:18
--- NOTE | 2020-01-27 13:54 | DI.US.S_ITS ---
PROCEDURE: US ABDOMEN COMPLETE INDICATIONS: PAIN TECHNIQUE: Real-time scanning was performed of the abdominal and retroperitoneal organs, with image documentation. COMPARISON: [facility], CT, ABDOMEN/PELVIS WITH CONTRAST, 12/06/2017, 15:33. [facility], US, ABDOMEN COMPLETE, 04/21/2011, 15:52. FINDINGS: Liver: Liver is normal in size and homogeneous in echotexture. Moderate diffuse parenchymal hypoechogenicity. Gallbladder: Surgically absent Biliary ducts: Intrahepatic bile ducts are non-dilated. Extrahepatic bile duct caliber measures 4.8 mm. Normal is 6-7 mm or less in diameter, or 10 mm or less post-cholecystectomy. Pancreas: Visualized portions of the pancreas are sonographically normal. Spleen: Spleen is at the upper limits of normal in size measuring 12.7 cm, and is homogeneous in echotexture. Kidneys: Kidneys are normal in size and echotexture. Right kidney measures 9.9 cm long; left kidney measures 9.7 cm long. No hydronephrosis or nephrolithiasis. No solid masses. Aorta: Visualized aorta is normal in caliber at less than 3 cm. distal abdominal aorta is not visible due to bowel gas. Iliacs: Proximal common iliac arteries are normal in caliber at less than 2.5 cm. IVC: Intrahepatic inferior vena cava is patent. Miscellaneous: No free abdominal fluid. IMPRESSION: 1. Mild hepatic steatosis or other intrinsic liver disease. This is similar to slightly worse compared to the prior study given changes in technique. 2. Slight enlargement of the spleen compared to prior (12.7 cm, increased from 10.6 cm). Dictated by: Gail Guillory M.D. on 01/27/2020 at 17:41 Approved by: Gail Guillory M.D. on 01/27/2020 at 17:43
== END ==
PROVIDERS: PCP Family Medicine; Referring Provider Family Medicine; Visit Provider Family Medicine
DX: R10.31 Right lower quadrant pain (principal); R16.1 Splenomegaly, not elsewhere classified; Z90.49 Acquired absence of other specified parts of digestive tract
CPT/HCPCS: 76700; 76830; 76856

== ENCOUNTER → 2020-01-29 14:31 | Outpatient (CLI) | payer OTHER, MEDICAID, SELFPAY ==
[2020-01-29 15:24] LABS: INR 1.1 (0.9-1.3); Prothrombin Time 12.9 SECONDS (10.1-12.7)
[2020-01-29 15:27] LABS: Hematocrit 37.7 % (36-46); Hemoglobin 12.8 g/dL (12.0-16.0); Mean Corpuscular Volume 79.6 fL (80-100); PTT Partial Thromboplastin Tim 44 SECONDS (26.4-36.2); Platelet Count 381 X10^3/uL (150-400); Red Blood Cell Count 4.74 X10^6/uL (4.0-5.2); White Blood Cell Count 8.3 X10^3/uL (4.5-11.0)
[2020-01-29 15:33] LABS: Alanine Aminotransferase 27 IU/L (<35); Albumin 4.3 g/dL (3.5-5.0); Albumin Globulin Ratio 1.4 (1.0-2.8); Alkaline Phosphatase 89 U/L (38-126); Aspartate Aminotransferase 27 IU/L (14-36); Bilirubin Total 0.3 mg/dL (0.2-1.3); Blood Urea Nitrogen 12 mg/dL (7-17); Calcium 9.4 mg/dL (8.4-10.2); Carbon Dioxide 28 mmol/L (22-32); Chloride 104 mmol/L (98-107); Estimated Glomerular Filt Rate > 60.0 mL/min (>60); Glucose 89 mg/dL (70-100); HEMOLYSIS < 15 (0-50); Potassium 4.3 mmol/L (3.4-5.1); Sodium 141 mmol/L (137-145); Total Protein 7.3 g/dL (6.3-8.2)
[2020-01-29 15:59] LABS: Neutrophils Absolute Manual 5312 /uL (3000-5900); Total Cells Counted 100
[2020-01-29 16:01] LABS: Anisocytosis 1+
== END ==
PROVIDERS: PCP Family Medicine; Referring Provider Nurse Practitioner; Visit Provider Nurse Practitioner
DX: K76.0 Fatty (change of) liver, not elsewhere classified (principal); R10.31 Right lower quadrant pain; R16.1 Splenomegaly, not elsewhere classified
CPT/HCPCS: 36415; 80053; 85025; 85610; 85730

== ENCOUNTER → 2020-02-10 09:22 | Outpatient (CLI) | payer OTHER, MEDICAID, SELFPAY ==
--- NOTE | 2020-02-10 09:23 | DI.CT.S_ITS ---
PROCEDURE: CT ABDOMEN PELVIS W CON INDICATIONS: RUQ abdominal pain, splenomegaly, hepatic steatosis TECHNIQUE: After the administration of oral and intravenous contrast, 5 mm thick sections acquired from the diaphragms to the symphysis. 5 mm thick coronal and sagittal reformats were performed. For radiation dose reduction, the following was used: automated exposure control, adjustment of mA and/or kV according to patient size. COMPARISON: [facility], CT, ABDOMEN/PELVIS WITH CONTRAST, 12/06/2017, 15:33. FINDINGS: Image quality: Excellent. ABDOMEN: Lung bases: Lung bases are clear. Heart size is normal. Solid organs: Liver is normal in size and enhancement. Gallbladder has been previously resected. Biliary system is non-dilated. Pancreas enhances normally. Spleen is normal in size and enhancement. No adrenal nodules. Kidneys are normal in size and enhancement, without hydronephrosis. Peritoneum and bowel: Stomach, small bowel, and colon loops are normal in caliber and wall thickness. No free fluid or air. Nodes and vessels: No retroperitoneal or mesenteric adenopathy. Aorta and inferior vena cava are normal in caliber. Miscellaneous: No ventral hernias. PELVIS: Genitourinary: Bladder wall thickness is normal. Prior hysterectomy. Miscellaneous: No inguinal hernias or adenopathy. Bones: No suspicious bony lesions. No vertebral body compression fractures. IMPRESSION: Prior cholecystectomy and hysterectomy, no operative complications seen. Minimal diverticulosis is incidentally noted along the sigmoid colon but no acute diverticulitis is seen. Over the abdomen and pelvis no underlying infection or neoplasm is suspected. Dictated by: Anthony Davila M.D. on 02/10/2020 at 15:09 Approved by: Anthony Davila M.D. on 02/10/2020 at 15:11
== END ==
PROVIDERS: PCP Family Medicine; Referring Provider Nurse Practitioner; Visit Provider Nurse Practitioner
DX: R10.11 Right upper quadrant pain (principal); R10.31 Right lower quadrant pain; R16.1 Splenomegaly, not elsewhere classified; K76.0 Fatty (change of) liver, not elsewhere classified; Z90.49 Acquired absence of other specified parts of digestive tract; Z90.710 Acquired absence of both cervix and uterus
CPT/HCPCS: 74177; Q9967

== ENCOUNTER 2020-05-02 10:42 | Emergency (ER) | payer OTHER, MEDICAID, SELFPAY ==
[2020-05-02 11:08] VITALS: BP 140/69; PULSE 70; RESP 19; TEMP 36.6; O2SAT 100; BMI 40.4
--- NOTE | 2020-05-02 11:16 | DI.RAD.S_ITS ---
PROCEDURE: XR WRIST RT MIN 3V INDICATIONS: non traumatic injury in January TECHNIQUE: 4 views of the wrist were acquired. COMPARISON: [facility], CR, XR WRIST LT MIN 3V, 01/22/2020, 11:36. FINDINGS: Bones: No displaced fracture or dislocation is evident. No suspicious osseous lesion is identified. Soft tissues: No suspicious soft tissue calcifications. IMPRESSION: No acute osseous abnormality of the right wrist. Dictated by: Chet Becker M.D. on 05/02/2020 at 10:39 Approved by: Chet Becker M.D. on 05/02/2020 at 10:39
--- NOTE | 2020-05-02 11:36 | ED_ITS ---
HPI - Extremity Problem <ALONZO LangleyBC - Last Filed: 05/02/20 13:55> General Chief complaint: Extremity Problem,Nontraumatic Stated complaint: Rt wrist Time Seen by Provider: 05/02/20 11:09 Source: patient Mode of arrival: Family Vehicle Limitations: no limitations History of Present Illness HPI Narrative: The patient is a 54-year-old female nonsmoker with history of PTSD depression and anxiety who presents with a chief complaint of right wrist pain. She states she had a ground level fall on February 05, had a FOOSH injury to her right hand and wrist. She states she did not hurt herself anywhere else during that fall. She states that she saw her primary care provider after, who obtain x-rays and she has no fracture. She states she has been using Tylenol at home. She states she came into the hospital today after her fall almost 3 months ago because her pain was so bad that she distracted while driving with her pain. Related Data Previous Rx's Medication Instructions Recorded Disabled Parking Permit #1 ea 04/04/19 escitalopram oxalate 20 mg tablet 20 mg PO DAILY #90 tab 02/17/20 hydroxyzine HCl 25 mg tablet 50 mg PO .Q6 PRN #90 tab 02/17/20 levothyroxine 50 mcg tablet 50 mcg PO DAILY #180 tab 02/17/20 propranolol 20 mg tablet 40 mg PO BID #180 tab 02/17/20 Allergies Allergy/AdvReac Type Severity Reaction Status Date / Time lorazepam [From Ativan] Allergy Intermediate itching Verified 01/22/20 10:42 sertraline [SERTRALINE] Allergy Unknown Verified 01/22/20 10:42 codeine [CODEINE] AdvReac Mild vomiting Verified 01/22/20 10:42 hydrocodone [HYDROCODONE] AdvReac Mild vomiting Verified 01/22/20 10:42 ibuprofen [IBUPROFEN] AdvReac Mild gi upset Verified 01/22/20 10:42 Penicillins [PENICILLINS] AdvReac Mild vomiting Verified 01/22/20 10:42 Sulfa (Sulfonamide AdvReac Mild headache Verified 01/22/20 10:42 Antibiotics) [SULFA (SULFONAMIDE ANTIBIOTICS)] Review of Systems <TIFFANIE Langley - Last Filed: 05/02/20 13:55> Review of Systems Narrative: GENERAL: Denies chills, fatigue, malaise, fever, sweats. HEENT: Denies sinus pain, ear pain, sore throat, difficulty swallowing, dizziness. RESPIRATORY: Denies dyspnea, cough, wheezing, hemoptysis, sputum. CARDIOVASCULAR: Denies chest pain, palpitations, orthopnea, edema, GASTROINTESTINAL: Denies nausea, vomiting, abdominal pain, diarrhea, const ipation, melena. : Denies dysuria, frequency, incontinence, hematuria, urinary retention. MUSCULOSKELETAL: See HPI SKIN: Denies rash, skin lesions, or other NEUROLOGIC: Denies weakness, headache, numbness, change in speech, confusion, seizures, incoordination. PSYCHIATRIC: No concerning psychosocial issues. 12 point review of systems is negative except for those stated above Patient History <TIFFANIE Langley - Last Filed: 05/02/20 13:55> Medical History Afib (Acute) Depression (Chronic) PTSD (post-traumatic stress disorder) (Chronic) Social History household members: spouse occupational status: unemployed Smoking Status: Never smoker Smoking Status: Never smoker alcohol intake frequency: 0-2 drinks per day Substance Use Type: does not use Exam <TIFFANIE Langley - Last Filed: 05/02/20 13:55> Narrative Exam Narrative: GENERAL: This is a well-nourished, well-developed patient, in no acute distress HEAD: Atraumatic. Normocephalic. No temporal or scalp tenderness. EYES: Pupils equal round and reactive. Extraocular motions intact. No scleral icterus. No injection or drainage. ENT: Nose without bleeding, purulent drainage or septal hematoma. Throat without erythema, tonsillar hypertrophy or exudate. Uvula midline. Airway patent. NECK: Trachea midline. No JVD or lymphadenopathy. Supple, nontender, no meningeal signs. CARDIOVASCULAR: Regular rate and rhythm RESPIRATORY: No cough. No increased respiratory effort. No accessory muscle use EXTREMITIES: General pain to palpation right wrist. Positive right radial pulse. [employer] sales representative strength right hand. Cap refill less than 2 seconds all fingers right hand. Pain to dorsum of wrist palpation. Decreased range of motion all mijares. no snuff box tenderness BACK: Nontender without deformity or crepitance. No flank tenderness. NEURO: AOx3. SKIN: No rash or erythema on visible skin Initial Vital Signs Initial Vital Signs: Vital Signs Temperature 97.8 F 05/02/20 11:08 Pulse Rate 70 05/02/20 11:08 Respiratory Rate 05/02/20 11:08 Blood Pressure 140/69 05/02/20 11:08 Pulse Oximetry 100 05/02/20 11:08 <Joe Rosa MD - Last Filed: 05/03/20 07:39> Initial Vital Signs Initial Vital Signs: Vital Signs Temperature 97.8 F 05/02/20 11:08 Pulse Rate 70 05/02/20 11:08 Respiratory Rate 05/02/20 11:08 Blood Pressure 140/69 05/02/20 11:08 Pulse Oximetry 100 05/02/20 11:08 Procedures <TIFFANIE Langley - Last Filed: 05/02/20 13:55> Orthopedic Splinting/Casting Injury #1: Side: right Upper Extremity Injury Location: wrist Upper Extremity Immobilizer: thumb spica (black thumb spica brace) Post splinting neuro exam: intact Post splinting vascular exam: intact Placed by: Nursing Scores <TIFFANIE Langley - Last Filed: 05/02/20 13:55> GCS Amy coma scale eye opening: Spontaneous [place] coma scale verbal response: Orientated [place] coma scale motor response: Obey commands Amy coma scale total score: 15 Course <TIFFANIE Langley - Last Filed: 05/02/20 13:55> Course Course Narrative: Chart review illustrate that the patient never had an x-ray of her right wrist at this facility. Chart review illustrate an x-ray of her left wrist in December Orders Ordered: ED Orders 05/02/20 11:16 XR wrist RT min 3V Stat Vital Signs Vital signs: Vital Signs - 8 hr 05/02/20 11:08 05/02/20 12:53 Temperature 97.8 F Pulse Rate 70 64 Respiratory Rate 19 16 Blood Pressure 140/69 Blood Pressure [Right Arm] 129/73 Pulse Oximetry 100 97 <Joe Rosa MD - Last Filed: 05/03/20 07:39> Orders Ordered: ED Orders 05/02/20 11:16 XR wrist RT min 3V Stat Vital Signs Vital signs: Vital Signs - 8 hr 05/02/20 11:08 05/02/20 12:53 Temperature 97.8 F Pulse Rate 70 64 Respiratory Rate 19 16 Blood Pressure 140/69 Blood Pressure [Right Arm] 129/73 Pulse Oximetry 100 97 [facility] - Extremity (Nontraumatic) <TIFFANIE Langley - Last Filed: 05/02/20 13:55> Imaging Data Extremity x-ray #1: Radiologist's Impression: [address] [place] [id number] XRay Report Signed Patient: Hannah Castro [facility]#: [id number] : 1965Acct:[id number] Age/Sex: 54 / FDate of Service: 05/02/20 Loc: ED Accession Number: [id number] Procedure: XR wrist RT min 3V Ordering Provider: Lisa Dietrich PROCEDURE: XR WRIST RT MIN 3V INDICATIONS: non traumatic injury in January TECHNIQUE: 4 views of the wrist were acquired. COMPARISON: [facility], , XR WRIST LT MIN 3V, 01/22/2020, 11:36. FINDINGS: Bones: No displaced fracture or dislocation is evident. No suspicious osseous lesion is identified. Soft tissues: No suspicious soft tissue calcifications. IMPRESSION: No acute osseous abnormality of the right wrist. Dictated by: Chet Becker M.D. on 05/02/2020 at 10:39 Approved by: Chet Becker M.D. on 05/02/2020 at 10:39 [facility] Narrative Medical decision making narrative: The patient is a 54-year-old female who presents with a chief complaint of left wrist pain since a fall in January. X- rays negative. She was placed in a brace for comfort. I discussed at length rest ice compression elevation as well as follow-up with primary care provider in the next few days. Encouraged [id number] medications as needed and able. Patient is neurovascularly intact throughout her stay in the emergency department. No questions or concerns upon discharge and states understanding return precautions as well as follow-up care. Discharge Plan Departure Patient Disposition: Home Clinical Impression: Pain in wrist Qualifiers: Laterality: right Qualified Code(s): M25.531 - Pain in right wrist Discharge Date/Time: 05/02/20 13:10 Instructions: How To Perform RICE (Rest, Ice, Compress, Elevate), DI for Wrist Pain Activity Restrictions/Additional Instructions: As I discussed, your x-ray shows no acute fracture. This does not rule out a soft tissue injury such as a ligament or tendon injury. It is important that you follow up with primary care provider, especially if worsening or no improvement. There can be fractures that did not show up on initial x-ray. Please follow-up with primary care provider in the next few days. Please use rest ice compression elevation as well as [id number] pain medications as needed and able Please come back to the emergency department for any acute concerns such as lack circulation her fingers, concern of heart attack or stroke etcetera Prescriptions: No Action (DME) Disabled Parking Permit Qty: 1 RF: 0 escitalopram oxalate 20 mg tablet 20 mg PO DAILY Qty: 90 RF: 3 hydroxyzine HCl 25 mg tablet 50 mg PO .Q6 PRN (Reason: itching) Qty: 90 RF: 3 levothyroxine 50 mcg tablet 50 mcg PO DAILY Qty: 180 RF: 3 propranolol 20 mg tablet 40 mg PO BID Qty: 180 RF: 3 Referrals: Steffen Loera MD [Primary Care Provider] - <Joe Rosa MD - Last Filed: 05/03/20 07:39> Cosign ED Attending Cosignature Attestation: I was immediately available in the department for consultation. This documentation has been reviewed and I agree with assessment and plan. Supervised by Joe Rosa MD
[2020-05-02 12:53] VITALS: BP 129/73; PULSE 64; RESP 16; O2SAT 97
== END 2020-05-02 13:10 | disposition home or self-care (01) ==
PROVIDERS: Emergency Provider Nurse Practitioner Family; PCP Family Medicine
DX: M25.531 Pain in right wrist (principal); W19.XXXA Unspecified fall, initial encounter
CPT/HCPCS: 73110; 99283

== ENCOUNTER 2020-06-08 11:15 | Outpatient (RCR) | payer OTHER, MEDICAID, SELFPAY ==
--- NOTE | 2020-05-28 15:20 | PT.OIE ---
Current Diagnoses Dorsalgia, unspecified (05/28/20) Past Medical History (Last Reviewed 05/02/20 @ 11:44 [facility] Afib (Acute) Depression (Chronic) PTSD (post-traumatic stress disorder) (Chronic) Visit Care Team Role Provider Type Steffen Loera MD Attending Provider Physician Primary Care Provider Referring Provider Specialty: [facility] Address: [address] [place] [address], [facility] Email: [email or web address] Physical Therapy Initial Evaluation PT-OP-A Visit Information Start: 05/28/20 13:48 Freq: Status: Active Protocol: Document 05/28/20 14:30 HH (Rec: 06/01/20 08:06 HH [email or web address]) Out-Patient Physical Therapy Visit Information Visit Information Visit Type Initial Evaluation Visit Start Time 14:30 Visit Stop Time 15:15 Total Visit Minutes 45 Visit Number 1/ Number of TRUCK HOP Visits 0 Evaluation Information Evaluation Date 05/28/20 PT-OP-B Current Condition Start: 05/28/20 13:48 Freq: Status: Active Protocol: Document 05/28/20 14:30 HH (Rec: 06/01/20 08:06 HH [email or web address]) Current Condition History of Current Condition Onset Date >10 years Current Complaints chronic LBP, radiating pain on RLE, poor activity tolerance History of Current Condition Pt is a 54yo female here for her chronic LBP > 10 years. Pt reports she had an accident in 2008 who twisted her back resulting herniated disc at L4 -L5 through imaging result. Pt c/o her pain is center of her lower lumbar and radiating pain to her posterior side of her R leg, but denies neurological symptoms. Her pain is 3/10 normally but goes up to 7-8/10 easily with sitting, standing and walking after couple minutes, especially weight bearing activities. She currently has difficulty doing housework, walking> 1/4 mile; laying down with hotpack at the pack tend to relieve her symptoms. Pt had a x ray in January and showed OA Prior Treatments and Tests MRI on back in 2008 Xray on back in January shows OA / DJD Treatment Goals Patient/Caregiver Goals 1. pt wants to be able to walk for long distance 2. To do housework/ stand/ sit for longer period of time without pain PT-OP-C Subjective Start: 05/28/20 13:48 Freq: Status: Active Protocol: Document 05/28/20 14:30 HH (Rec: 06/01/20 08:06 [email or web address]) Patient Questionnaires Oswestry Low Back Index Oswestry Score 68 Oswestry Impairment 60 to 79% Impaired (Score 60- 79) OP-PT Pain Assessment Location LBP Pain Location Details R SIJ Intensity 5 Scale Used Numeric (0 - 10) Description Radiating,Sharp,Shooting Frequency Frequent Pain Aggravating Factors Position,Changing Position, Activity,Exercise,Standing, Sitting,Walking,Bending Pain Alleviating Factors Heat,Inactivity,Rest PT-OP-D Balance Start: 05/28/20 13:48 Freq: Status: Active Protocol: Document 05/28/20 14:30 HH (Rec: 06/01/20 08:06 [email or web address]) Balance Tests Single Limb Standing Single Limb- Right 0 Single Limb- Left 3 PT-OP-G Mobility & Gait Start: 05/28/20 13:48 Freq: Status: Active Protocol: Document 05/28/20 14:30 HH (Rec: 06/01/20 08:06 [email or web address]) OP Gait Assessment Comments Gait Comments short stride length noted with decreased heel strikes and push off. PT-OP-H Neuro Start: 05/28/20 13:48 Freq: Status: Active Protocol: Document 05/28/20 14:30 HH (Rec: 06/01/20 08:06 [email or web address]) Sensation Evaluation Gross Sensation Gross Sensation WNL Deep Tendon Reflex & Clonus Assessment Deep Tendon Reflex Left Achilles Deep Tendon Reflex 2+ Normal Left Patellar Deep Tendon Reflex 2+ Normal Right Achilles Deep Tendon Reflex 2+ Normal Right Patellar Deep Tendon Reflex 1+ Diminished PT-OP-K Range of Motion Start: 05/28/20 13:48 Freq: Status: Active Protocol: Document 05/28/20 14:30 HH (Rec: 06/01/20 08:06 [email or web address]) Lumbar Spine Range of Motion Lumbar Spine Active Degrees Comments toe touch test= 13.5 inches from floor lateral flexion= 18 inches from floor bilaterally extension= to neutral (pain worst) PT-OP-L Special Tests Start: 05/28/20 13:48 Freq: Status: Active Protocol: Document 05/28/20 14:30 HH (Rec: 06/01/20 08:06 [email or web address]) Special Tests Lumbar Spine Special Tests SLR Test Results +ve R Comments pain at R SIJ, 70 degrees, L= WNL Slump Test Results +R PT-OP-M Strength Start: 05/28/20 13:48 Freq: Status: Active Protocol: Document 05/28/20 14:30 HH (Rec: 06/01/20 08:06 [email or web address]) Hip Strength Hip Manual Muscle Testing Left Flexion (L2) 4+ Good+ Extension (S1) 4+ Good+ Abduction 4+ Good+ Adduction 4+ Good+ Right Flexion (L2) 3+ Fair+ Extension (S1) 3+ Fair+ Abduction 3+ Fair+ Adduction 4- Good- External Rotation 3+ Fair+ Internal Rotation 3+ Fair+ Comments pain with flex, ER IR Knee Strength Knee Manual Muscle Testing Left Flexion (S2) 4 Good Extension (L3) 4 Good Right Flexion (S2) 3+ Fair+ Extension (L3) 3+ Fair+ Ankle/Foot Strength Ankle and Foot Manual Muscle Testing Right Dorsiflexion (L4) 4- Good- Plantarflexion (S1) 4- Good- Left Dorsiflexion (L4) 4+ Good+ Plantarflexion (S1) 4+ Good+ PT-OP-T Assessment and Plan Start: 05/28/20 13:48 Freq: Status: Active Protocol: Document 05/28/20 14:30 HH (Rec: 06/01/20 08:06 [email or web address]) Physical Therapy Assessment Rehab Potential Rehabilitation Potential Good Evaluation Complexity Number of Personal Factors/Comorbidities 3 or More Number of Body Systems Impaired 4 or More Clinical Presentation at Evaluation Evolving Impairments Impairments Activity Tolerance,Balance, Functional Activities, Functional Mobility,Gait,Pain, Posture,ROM,Soft Tissue Mobility,Strength Goals neuro sign Impairment pt has radiating pain on RLE Short Term Goal (STG) Pt will improve her tolerance for SLR and slump test with pain no more than 5 STG Duration 4 weeks Alf Goal (LTG) Pt will have no more than 2/10 pain for SLR and slump test to [id number] her neural sensitivity which is necessary for sitting and standing activities. LTG Duration 8 weeks Oswestry Impairment scores 68 on Oswestry LBP questionnaire Short Term Goal (STG) Pt will inc score to 50 to show improvement in functional ability STG Duration 4 weeks Alf Goal (LTG) pt will increase score to 40 in order to show improved ability for ADLs and daily activities. LTG Duration 8 weeks strength Impairment poor RLE strength Short Term Goal (STG) pt will have inc 1/2 MMT on RLE in order to improve right leg strength for functional activities STG Duration 4 weeks Equipment Service Associate Goal (LTG) Pt will inc 1 full MMT on RLE in order to tolerate >1/2 mile walk without discomfort LTG Duration 8 weeks Assessment Summary Assessment This is a moderate complexity evaluation for this 54 yo female with chronic LBP with radiating pain to RLE >10 years consistant with degeneration present in imaging. Pt shows significant decrease in RLE strength which likely contribute to this pain and her poor activity tolerance. Pt also has a history of poor attendance for her previous PT course in 2019. So this might be a long course of skilled PT course in order to address her gait dysfunctions, improve her posture, increase strength and ROM and decrease pain. Physical Therapy Plan Frequency and Duration Frequency of Treatment 2x/Week Duration of Treatment 8 weeks Plan of Care Start Date 05/28/20 Plan of Care End Date 07/31/20 Therapeutic Interventions Therapeutic Interventions Balance Training,Gait Training ,Home Exercise Program,Joint Mobilizations,Manual Therapy, Neuromuscular Re-education, Patient/Caregiver Education, Self-Care/Home Management,Soft Tissue Mobilization,Taping, Therapeutic Activities, Therapeutic Exercises Modalities Cold Pack/Ice Massage,Electric Stimulation,Hot Packs, Infrared Therapy,Traction- Mechanical Next Visit Focus/Plan Next Note Type Treatment Note Next Visit Plan stepper, core ex nerve glide gentle flexibility
--- NOTE | 2020-05-28 15:20 | PT.OPPOC ---
Physical, Occupational & Speech Therapy At [facility] Current Diagnoses Dorsalgia, unspecified (05/28/20) Visit Care Team Role Provider Type Steffen Loera MD Attending Provider Physician Primary Care Provider Referring Provider Specialty: Family Practice Address: [address] [place] [address], [id number] Email: [email or web address] Plan Of Care PT-OP-T Assessment and Plan Start: 05/28/20 13:48 Freq: Status: Active Protocol: Document 05/28/20 14:30 HH (Rec: 06/01/20 08:06 HH [email or web address]) Physical Therapy Assessment Rehab Potential Rehabilitation Potential Good Evaluation Complexity Number of Personal Factors/Comorbidities 3 or More Number of Body Systems Impaired 4 or More Clinical Presentation at Evaluation Evolving Impairments Impairments Activity Tolerance,Balance, Functional Activities, Functional Mobility,Gait,Pain, Posture,ROM,Soft Tissue Mobility,Strength Goals neuro sign Impairment pt has radiating pain on RLE Short Term Goal (STG) Pt will improve her tolerance for SLR and slump test with pain no more than 5 STG Duration 4 weeks In Home Aide Goal (LTG) Pt will have no more than 2/10 pain for SLR and slump test to [id number] her neural sensitivity which is necessary for sitting and standing activities. LTG Duration 8 weeks Oswestry Impairment scores 68 on Oswestry LBP questionnaire Short Term Goal (STG) Pt will inc score to 50 to show improvement in functional ability STG Duration 4 weeks Shelter Goal (LTG) pt will increase score to 40 in order to show improved ability for ADLs and daily activities. LTG Duration 8 weeks strength Impairment poor RLE strength Short Term Goal (STG) pt will have inc 1/2 MMT on RLE in order to improve right leg strength for functional activities STG Duration 4 weeks In Home Aide Goal (LTG) Pt will inc 1 full MMT on RLE in order to tolerate >1/2 mile walk without discomfort LTG Duration 8 weeks Assessment Summary Assessment This is a moderate complexity evaluation for this 54 yo female with chronic LBP with radiating pain to RLE >10 years consistant with degeneration present in imaging. Pt shows significant decrease in RLE strength which likely contribute to this pain and her poor activity tolerance. Pt also has a history of poor attendance for her previous PT course in 2019. So this might be a long course of skilled PT course in order to address her gait dysfunctions, improve her posture, increase strength and ROM and decrease pain. Physical Therapy Plan Frequency and Duration Frequency of Treatment 2x/Week Duration of Treatment 8 weeks Plan of Care Start Date 05/28/20 Plan of Care End Date 07/31/20 Therapeutic Interventions Therapeutic Interventions Balance Training,Gait Training ,Home Exercise Program,Joint Mobilizations,Manual Therapy, Neuromuscular Re-education, Patient/Caregiver Education, Self-Care/Home Management,Soft Tissue Mobilization,Taping, Therapeutic Activities, Therapeutic Exercises Modalities Cold Pack/Ice Massage,Electric Stimulation,Hot Packs, Infrared Therapy,Traction- Mechanical Next Visit Focus/Plan Next Note Type Treatment Note Next Visit Plan stepper, core ex nerve glide gentle flexibility Plan of Care Dates Plan of Care Start Date 05/28/20 Plan of Care End Date 07/31/20 Electronically Signed by: Rj Nelson PT 06/01/20 2291 Please Sign and Return: I have reviewed this Plan of Care and certify that the skilled therapy services above are required to meet the patient?s needs. Physician Signature Date Printed Name and Credentials Clinical Instructor Signature Printed Name and Credentials
--- NOTE | 2020-06-08 11:58 | PT.OTN ---
Current Diagnoses Dorsalgia, unspecified (06/08/20) Physical Therapy Treatment Note PT-OP-A Visit Information Start: 05/28/20 13:48 Freq: Status: Active Protocol: Document 06/08/20 11:15 HH (Rec: 06/08/20 11:58 [id number]) Out-Patient Physical Therapy Visit Information Visit Information Visit Type Treatment Note Visit Start Time 11:15 Visit Stop Time 11:50 Total Visit Minutes 40 Visit Number 2/9 Number of INSURANCE EXAMINER Visits 0 PT-OP-B Current Condition Start: 05/28/20 13:48 Freq: Status: Active Protocol: Document 05/28/20 14:30 HH (Rec: 06/01/20 08:06 [email or web address]) Current Condition History of Current Condition Onset Date >10 years Current Complaints chronic LBP, radiating pain on RLE, poor activity tolerance History of Current Condition Pt is a 54yo female here for her chronic LBP > 10 years. Pt reports she had an accident in 2008 who twisted her back resulting herniated disc at L4 -L5 through imaging result. Pt c/o her pain is center of her lower lumbar and radiating pain to her posterior side of her R leg, but denies neurological symptoms. Her pain is 3/10 normally but goes up to 7-8/10 easily with sitting, standing and walking after couple minutes, especially weight bearing activities. She currently has difficulty doing housework, walking> 1/4 mile; laying down with hotpack at the pack tend to relieve her symptoms. Pt had a x ray in January and showed OA Prior Treatments and Tests MRI on back in 2008 Xray on back in January shows OA / DJD Treatment Goals Patient/Caregiver Goals 1. pt wants to be able to walk for long distance 2. To do housework/ stand/ sit for longer period of time without pain PT-OP-C Subjective Start: 05/28/20 13:48 Freq: Status: Active Protocol: Document 06/08/20 11:15 HH (Rec: 06/08/20 11:58 [id number]) OP-PT Subjective Patient Comments Patient Comments i will be gone for [place] for awhile at the end of this month. PT-OP-D Balance Start: 05/28/20 13:48 Freq: Status: Active Protocol: Document 05/28/20 14:30 HH (Rec: 06/01/20 08:06 [email or web address]) Balance Tests Single Limb Standing Single Limb- Right 0 Single Limb- Left 3 PT-OP-G Mobility & Gait Start: 05/28/20 13:48 Freq: Status: Active Protocol: Document 05/28/20 14:30 HH (Rec: 06/01/20 08:06 [email or web address]) OP Gait Assessment Comments Gait Comments short stride length noted with decreased heel strikes and push off. PT-OP-H Neuro Start: 05/28/20 13:48 Freq: Status: Active Protocol: Document 05/28/20 14:30 HH (Rec: 06/01/20 08:06 [email or web address]) Sensation Evaluation Gross Sensation Gross Sensation WNL Deep Tendon Reflex & Clonus Assessment Deep Tendon Reflex Left Achilles Deep Tendon Reflex 2+ Normal Left Patellar Deep Tendon Reflex 2+ Normal Right Achilles Deep Tendon Reflex 2+ Normal Right Patellar Deep Tendon Reflex 1+ Diminished PT-OP-K Range of Motion Start: 05/28/20 13:48 Freq: Status: Active Protocol: Document 05/28/20 14:30 HH (Rec: 06/01/20 08:06 [email or web address]) Lumbar Spine Range of Motion Lumbar Spine Active Degrees Comments toe touch test= 13.5 inches from floor lateral flexion= 18 inches from floor bilaterally extension= to neutral (pain worst) PT-OP-L Special Tests Start: 05/28/20 13:48 Freq: Status: Active Protocol: Document 05/28/20 14:30 HH (Rec: 06/01/20 08:06 [email or web address]) Special Tests Lumbar Spine Special Tests SLR Test Results +ve R Comments pain at R SIJ, 70 degrees, L= WNL Slump Test Results +R PT-OP-M Strength Start: 05/28/20 13:48 Freq: Status: Active Protocol: Document 05/28/20 14:30 HH (Rec: 06/01/20 08:06 [email or web address]) Hip Strength Hip Manual Muscle Testing Left Flexion (L2) 4+ Good+ Extension (S1) 4+ Good+ Abduction 4+ Good+ Adduction 4+ Good+ Right Flexion (L2) 3+ Fair+ Extension (S1) 3+ Fair+ Abduction 3+ Fair+ Adduction 4- Good- External Rotation 3+ Fair+ Internal Rotation 3+ Fair+ Comments pain with flex, ER IR Knee Strength Knee Manual Muscle Testing Left Flexion (S2) 4 Good Extension (L3) 4 Good Right Flexion (S2) 3+ Fair+ Extension (L3) 3+ Fair+ Ankle/Foot Strength Ankle and Foot Manual Muscle Testing Right Dorsiflexion (L4) 4- Good- Plantarflexion (S1) 4- Good- Left Dorsiflexion (L4) 4+ Good+ Plantarflexion (S1) 4+ Good+ PT-OP-Q Treatments Start: 05/28/20 13:48 Freq: Status: Active Protocol: Document 06/08/20 11:15 HH (Rec: 06/08/20 11:58 [id number]) Cardio Equipment Recumbent Stepper (Sci-Fit) Duration (Minutes) 6 Resistance 4 Seat Position 1 Therapeutic Exercises Supine Exercises tennis ball release Supine Exercise Name on piriformis Side right Reps/Minutes 2 mins Comments for HEP knee to opposite chest Supine Exercise Name for piriformis Side right Reps/Minutes 15 secs hold x 4 Comments for HEP sciatic nerve glide Side right Reps/Minutes 8 x2 Comments for HEP with ankle DF Sidelying Exercises clamshell Side right Reps/Minutes 8 x2 Comments noticeable weakness at R hip, for HEP Manual Therapy Treatment Soft Tissue Mobilization R gluteal Mobilization Type Sustained Pressure,Trigger Point Release Intensity/Depth Moderate Body Position Sidelying Comments mild tenderness noted. R piriformis Mobilization Type Sustained Pressure,Trigger Point Release Intensity/Depth Moderate Body Position Sidelying Comments signficiant tenderness noted against PT pressure. PT-OP-T Assessment and Plan Start: 05/28/20 13:48 Freq: Status: Active Protocol: Document 06/08/20 11:15 HH (Rec: 06/08/20 11:58 [id number]) Physical Therapy Assessment Goals neuro sign Impairment pt has radiating pain on RLE Short Term Goal (STG) Pt will improve her tolerance for SLR and slump test with pain no more than 5 STG Duration 4 weeks Sound Effects Supervisor Goal (LTG) Pt will have no more than 2/10 pain for SLR and slump test to [id number] her neural sensitivity which is necessary for sitting and standing activities. LTG Duration 8 weeks Oswestry Impairment scores 68 on Oswestry LBP questionnaire Short Term Goal (STG) Pt will inc score to 50 to show improvement in functional ability STG Duration 4 weeks Custodial Goal (LTG) pt will increase score to 40 in order to show improved ability for ADLs and daily activities. LTG Duration 8 weeks strength Impairment poor RLE strength Short Term Goal (STG) pt will have inc 1/2 MMT on RLE in order to improve right leg strength for functional activities STG Duration 4 weeks Custodial Goal (LTG) Pt will inc 1 full MMT on RLE in order to tolerate >1/2 mile walk without discomfort LTG Duration 8 weeks Assessment Summary Assessment Initiated manual therapy on R piriformis, gluteal muscle group followed by piriformis stretch. Pt has immediate improved SLR on R up to 85degrees without symptoms/ pain. Provided HEP with supine piriformis stretch, nerve glide, tennis ball release, clamshell. Pt meagan session very well. Physical Therapy Plan Next Visit Focus/Plan Next Note Type Treatment Note Next Visit Plan hedy, core ex nerve glide gentle flexibility R hip strengthening
--- NOTE | 2020-08-13 15:10 | PT.OPDS ---
Current Diagnoses Dorsalgia, unspecified (06/08/20) Visit Care Team Role Provider Type Steffen Loera MD Attending Provider Physician Primary Care Provider Referring Provider Specialty: [facility] Address: [address] [place] [address], [id number] Email: [email or web address] Visit Number Visit Number 01/05 Discharge Summary PT-OP-T Assessment and Plan Start: 05/28/20 13:48 Freq: Status: Active Protocol: Document 08/13/20 15:09 (Rec: 08/13/20 15:10 [email or web address]) Physical Therapy Plan Discharge Physical Therapy Discharge Reasons No Longer Attending PT Discharge Comments Patient was scheduled after clinic opened, but cancelled all appts due to possibly moving to [place]. Patient has not called back in 30+ days. Please D/C.
== END 2020-08-14 14:10 ==
LOC: PHYS 11:15
PROVIDERS: PCP Family Medicine; Referring Provider Family Medicine; Visit Provider Family Medicine
DX: M54.9 Dorsalgia, unspecified (principal)
CPT/HCPCS: 97110; 97140; 97162

== ENCOUNTER 2020-12-24 14:53 | Emergency (ER) | payer OTHER, SELFPAY ==
[2020-12-24 15:02] VITALS: BP 159/71; PULSE 65; RESP 15; TEMP 36.8; O2SAT 95; BMI 37.0
--- NOTE | 2020-12-24 15:06 | DI.RAD.S_ITS ---
PROCEDURE: XR LUMBAR SPINE 2-3V INDICATIONS: back pain TECHNIQUE: 2 views of the lumbar spine were acquired. COMPARISON: Located Within [facility], CT, CT ABDOMEN PELVIS W CON, 02/10/2020, 10:26. Located Within [facility], CR, XR LUMBAR SPINE 2-3V, 03/27/2019, 15:16. FINDINGS: Bones: 5 [id number] vertebrae are present. There is normal bony alignment. No vertebral body compression fractures. No suspicious bony lesions. Small anterior osteophytes. Soft tissues: Overlying bowel gas pattern is normal. No suspicious soft tissue calcifications. Cholecystectomy clips. IMPRESSION: No compression fracture. No interval change appreciated. Mild degenerative change seen. If clinically indicated consider MRI for further evaluation. Dictated by: Moo Helms M.D. on 12/24/2020 at 15:45 Approved by: Moo Helms M.D. on 12/24/2020 at 15:47
--- NOTE | 2020-12-24 16:39 | ED_ITS ---
HPI - Back Pain/Injury General Chief Complaint: Back Pain/Injury Stated Complaint: back injury Time Seen by Provider: 12/24/20 15:13 Source: patient Limitations: no limitations History of Present Illness HPI Narrative: This is a 55-year-old female comes to the emergency department with complaint of right SI joint pain. 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 She states she was reaching to pull a brief across the patient as well as trying to hold the patient with her other arm. She states the patient had already told her that they were not willing to assist her. Patient states that she felt a spasm in her right buttock lower leg region. Patient states since then she has had some radiation down her leg she denies numbness, tingling or weakness. She finds lying, lifting worsens her symptoms. She states she has had low back issues in the past but was her L4-5 region, she has not had pain in this area before. She states she is able to reproduce it when she palpates the area. In the past for her lower back she has taken ibuprofen up to 800 mg once daily with improvement. She takes medication for hypothyroid, anxiety and hypertension. She denies any back surgery. She has had cholecystectomy and hysterectomy. Related Data Previous Rx's Medication Instructions Recorded Disabled Parking Permit #1 ea 04/04/19 escitalopram oxalate 20 mg tablet 20 mg PO DAILY #90 tab 02/17/20 levothyroxine 50 mcg tablet 50 mcg PO DAILY #180 tab 02/17/20 propranolol 20 mg tablet 40 mg PO BID #180 tab 02/17/20 clindamycin HCl 300 mg capsule 300 mg PO TID #30 cap 06/03/20 docusate calcium 240 mg capsule See Rx Instructions .ROUTE 07/02/20 .COMPLEX #60 capsule hydroxyzine HCl 25 mg tablet 50 mg PO .Q6 PRN #90 tab 08/07/20 cyclobenzaprine 10 mg PO Q8H PRN #14 tab 12/24/20 ibuprofen 800 mg PO TID PRN #10 tab 12/24/20 Allergies Allergy/AdvReac Type Severity Reaction Status Date / Time lorazepam [From Ativan] Allergy Intermediate itching Verified 12/24/20 15:06 sertraline [SERTRALINE] Allergy Unknown Verified 12/24/20 15:06 codeine [CODEINE] AdvReac Mild vomiting Verified 12/24/20 15:06 hydrocodone [HYDROCODONE] AdvReac Mild vomiting Verified 12/24/20 15:06 ibuprofen [IBUPROFEN] AdvReac Mild gi upset Verified 12/24/20 15:06 Penicillins [PENICILLINS] AdvReac Mild vomiting Verified 12/24/20 15:06 Sulfa (Sulfonamide AdvReac Mild headache Verified 12/24/20 15:06 Antibiotics) [SULFA (SULFONAMIDE ANTIBIOTICS)] Review of Systems Review of Systems ROS Unobtainable: All systems reviewed & are unremarkable except as noted in HPI and below Patient History Medical History (Updated 12/24/20 @ 16:44 by Lisa Rose DO) Afib Depression PTSD (post-traumatic stress disorder) Social History household members: spouse occupational status: unemployed Smoking Status: Never smoker Smoking Status: Never smoker alcohol intake frequency: 0-2 drinks per day Substance Use Type: does not use Exam Narrative Exam Narrative: GENERAL: Alert and oriented x three, obese female in mild to moderate distress. HEENT: Head normocephalic, atraumatic, EOMI, pupils reactive, face symmetric, moist mucous membranes NECK: Supple, full range of motion CARDIOVASCULAR: Regular rate and rhythm without murmurs, rubs or gallops. RESPIRATORY: Breath sounds equal bilaterally, no wheezes rales or rhonchi. ABDOMEN: Soft, nontender. Normoactive bowel sounds all 4 quadrants. No guarding or rebound, rigidity, no mass : No CVA tenderness BACK: No cervical, thoracic or lumbar vertebral point tenderness. Patient has tenderness over the right SI joint that reproduces her pain and seems quite uncomfortable. There is also tension tightness in that area. Patient has decreased range of motion. Patient's gait is [antalgic/normal]. Rectal exam is deferred. Muscle strength is 5/5 in lower extremities, DTRs are 2/4 and lower extremities. Dorsalis pedis and tibialis pulses are 2+ and lower extremities. Sensation is intact in the lower extremities. Patient has increased pain with straight leg raise on the right. EXTREMITIES: Normal range of motion, no clubbing or edema. Neurovascularly intact NEUROLOGICAL: Cranial nerves II through XII grossly intact. Moving all extremities SKIN: Warm, dry, no petechiae, no rashes or lesions. Initial Vital Signs Initial Vital Signs: Vital Signs Temperature 98.2 F 12/24/20 15:02 Pulse Rate 65 12/24/20 15:02 Respiratory Rate 15 12/24/20 15:02 Blood Pressure 159/71 H 12/24/20 15:02 Pulse Oximetry 95 12/24/20 15:02 Course Orders Ordered: ED Orders 12/24/20 15:06 XR lumbar spine 2-3V Stat Vital Signs Vital signs: Vital Signs - 8 hr 12/24/20 15:02 12/24/20 17:02 Temperature 98.2 F Pulse Rate 65 64 Respiratory Rate 15 18 Blood Pressure 159/71 H 136/65 Pulse Oximetry 95 97 MDM - Back Pain/Injury Imaging Data L-spine x-ray: Radiologist's Impression: [address] [id number] ReportSigned Patient: Hannah Castro AMR#: [id number]: 1965Acct:[id number]/Sex: 55 / FDate of Service: 12/24/20Loc: EDAccession Number: [id number] Procedure: XR lumbar spine 2-3V Ordering Provider: Lisa Rose D.O. PROCEDURE: XR LUMBAR SPINE 2-3V INDICATIONS: back pain TECHNIQUE: 2 views of the lumbar spine were acquired. COMPARISON: [facility], CT, CT ABDOMEN PELVIS W CON, 02/10/2020, 10:26. [facility], CR, XR LUMBAR SPINE 2-3V, 03/27/2019, 15:16. FINDINGS: Bones: 5 [id number] vertebrae are present. There is normal bony alignment. No vertebral body compression fractures. No suspicious bony lesions. Small anterior osteophytes. Soft tissues: Overlying bowel gas pattern is normal. No suspicious soft tissue calcifications. Cholecystectomy clips. IMPRESSION: No compression fracture. No interval change appreciated. Mild degenerative change seen. If clinically indicated consider MRI for further evaluation. Dictated by: Moo Helms M.D. on 12/24/2020 at 15:45 Approved by: Moo Helms M.D. on 12/24/2020 at 15:47 MDM Narrative Medical decision making narrative: 55-year-old female complaining of right SI joint pain which is reproducible with palpation and increased pain with flexion of the hip. Patient is more comfortable standing or sitting on the very edge of the bed and actually sitting back. Patient states she has done well with ibuprofen at her mg once daily in the past but feels like she is having significant muscle spasm in the buttock and upper right leg. Patient has had some lumbar back issues at L4/L5 in 2003 before but this is a different location and more in the buttock and she is not complaining of any pain in lumbar region. Plan for follow-up with L&I patient does request modified duty which paperwork was filled out. Discharge Plan Departure Patient Disposition: Home Clinical Impression: Sacroiliac joint pain Instructions: Sacroiliac Joint Pain Activity Restrictions/Additional Instructions: Follow-up with your primary care team, if they will not with you because they do not take labor and delivery. Call the number/hotline on your paperwork for follow-up appointment. You may take ibuprofen 800 mg 1-2 times daily as needed. Take muscle relaxer every 8 hours as needed, this medication can make you sleepy do not drive, perform hazardous activities or make any major decisions while taking it. Return to the ER for fevers, rapidly worsening symptoms, lightheadedness or passing out, new weakness, loss of sensation or inability usual lower extremity loss of bowel or bladder control or other new or concerning symptoms. Prescriptions: New ibuprofen 800 mg tablet 800 mg PO TID PRN (Reason: pain) Qty: 10 RF: 0 cyclobenzaprine 10 mg tablet 10 mg PO Q8H PRN (Reason: muscle spasm) Qty: 14 RF: 0 No Action (DME) Disabled Parking Permit Qty: 1 RF: 0 escitalopram oxalate 20 mg tablet 20 mg PO DAILY Qty: 90 RF: 3 levothyroxine 50 mcg tablet 50 mcg PO DAILY Qty: 180 RF: 3 propranolol 20 mg tablet 40 mg PO BID Qty: 180 RF: 3 docusate calcium [Stool Softener (docusate lisa)] 240 mg capsule See Rx Instructions .ROUTE .COMPLEX Qty: 60 RF: 2 hydroxyzine HCl 25 mg tablet 50 mg PO .Q6 PRN (Reason: itching) Qty: 90 RF: 3 clindamycin HCl 300 mg capsule 300 mg PO TID Qty: 30 RF: 0 Referrals: Steffen Loera MD [Primary Care Provider] -
[2020-12-24 17:02] VITALS: BP 136/65; PULSE 64; RESP 18; O2SAT 97
== END 2020-12-24 17:05 | disposition home or self-care (01) ==
PROVIDERS: Emergency Provider Emergency Medicine; PCP Family Medicine
DX: M53.3 Sacrococcygeal disorders, not elsewhere classified (principal); I48.91 Unspecified atrial fibrillation; E66.9 Obesity, unspecified; Z68.37 Body mass index [BMI] 37.0-37.9, adult; F43.10 Post-traumatic stress disorder, unspecified; F32.9 Major depressive disorder, single episode, unspecified
CPT/HCPCS: 72100; 99283

== ENCOUNTER 2021-05-18 07:53 | Emergency (ER) | payer SELFPAY ==
[2021-05-18] VITALS (12 sets, daily range): BP systolic 141–171; BP diastolic 66–100; PULSE 57–67; RESP 20; TEMP 36.8; O2SAT 96–99; BMI 38.8
--- NOTE | 2021-05-18 09:13 | ED_ITS ---
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 Complains of right lower quadrant pain with bloody stools. History of colonoscopy in the last 2 years. Patient denies being on a blood thinner. No fever chills no urinary complaints. Pain does not radiate. Worse with movement. Related Data Previous Rx's Medication Instructions Recorded Disabled Parking Permit #1 ea 04/04/19 escitalopram oxalate 20 mg tablet 20 mg PO DAILY #90 tab 02/17/20 levothyroxine 50 mcg tablet 50 mcg PO DAILY #180 tab 02/17/20 propranolol 20 mg tablet 40 mg PO BID #180 tab 02/17/20 clindamycin HCl 300 mg capsule 300 mg PO TID #30 cap 06/03/20 docusate calcium 240 mg capsule See Rx Instructions .ROUTE 07/02/20 .COMPLEX #60 capsule hydroxyzine HCl 25 mg tablet 50 mg PO .Q6 PRN #90 tab 08/07/20 cyclobenzaprine 10 mg PO Q8H PRN #14 tab 12/24/20 ibuprofen 800 mg PO TID PRN #10 tab 12/24/20 Allergies Allergy/AdvReac Type Severity Reaction Status Date / Time lorazepam [From Ativan] Allergy Intermediate itching Verified 05/18/21 08:49 sertraline [SERTRALINE] Allergy Unknown Verified 05/18/21 08:49 codeine [CODEINE] AdvReac Mild vomiting Verified 05/18/21 08:49 hydrocodone [HYDROCODONE] AdvReac Mild vomiting Verified 05/18/21 08:49 ibuprofen [IBUPROFEN] AdvReac Mild gi upset Verified 05/18/21 08:49 Penicillins [PENICILLINS] AdvReac Mild vomiting Verified 05/18/21 08:49 Sulfa (Sulfonamide AdvReac Mild headache Verified 05/18/21 08:49 Antibiotics) [SULFA (SULFONAMIDE ANTIBIOTICS)] Review of Systems Review of Systems Narrative: GENERAL: Denies chills, fatigue, malaise, fever, sweats. HEENT: Denies sinus pain, ear pain, sore throat RESPIRATORY: Denies dyspnea, cough CARDIOVASCULAR: Denies chest pain, palpitations GASTROINTESTINAL: Denied nausea, vomiting, complains abdominal pain : Denies dysuria, frequency, hematuria MUSCULOSKELETAL: denies muscle or bony pain SKIN: Denies rash, skin lesions NEUROLOGIC: Denies weakness, numbness ROS Unobtainable: All systems reviewed & are unremarkable except as noted in HPI and below Patient History Medical History (Updated 05/18/21 @ 12:24 by Joe Rosa MD) Afib Depression PTSD (post-traumatic stress disorder) Social History household members: spouse occupational status: unemployed Smoking Status: Never smoker Smoking Status: Never smoker alcohol intake frequency: 0-2 drinks per day Substance Use Type: does not use Exam Narrative Exam Narrative: GENERAL: in no distress, not toxic not dyspneic HEAD: Normocephalic. EYES: Pupils equal round No scleral icterus. No injection no discharge ENT: Mucous membranes moist. NECK: Trachea midline. CARDIOVASCULAR: Regular rate and rhythm without murmurs RESPIRATORY: Clear to auscultation. Breath sounds equal bilaterally. No wheezes, rales, or rhonchi. GASTROINTESTINAL: Abdomen soft, reproducible right lower quadrant tenderness. No peritoneal signs. Bowel sounds present. No McBurney point tenderness EXTREMITIES: No gross deformities. BACK: No flank tenderness. NEURO: AOx4. SKIN: Warm and dry PSYCH: Not anxious, is cooperative Initial Vital Signs Initial Vital Signs: Vital Signs Temperature 98.3 F 05/18/21 08:14 Pulse Rate 61 05/18/21 08:14 Respiratory Rate 20 05/18/21 08:14 Blood Pressure 171/74 H 05/18/21 08:14 Pulse Oximetry 97 05/18/21 08:14 Course Course Course Narrative: Pain improved during course of stay. Reviewed results with yolanda francis and . Orders Ordered: ED Orders 05/18/21 09:17 Urine Microscopic Stat 05/18/21 09:20 Complete Blood Count AUTO DIFF Stat Comprehensive Metabolic Panel Stat Lipase Stat 05/18/21 10:42 CT abdomen pelvis w con Stat Discontinued Medications Sodium Chloride (Normal Saline 0.9%) 1,000 mls @ 1,000 mls/hr IV BOLUS ONE Stop: 05/18/21 09:29 Last Infusion: 05/18/21 10:47 Dose: 0 mls/hr Documented by: [email or web address] Admin: 05/18/21 09:31 Dose: 1,000 mls/hr Documented by: RICK Morphine Sulfate (Morphine 4 Mg/Ml Inj) 4 mg IV NOW ONE Stop: 05/18/21 08:53 Last Admin: 05/18/21 09:36 Dose: 4 mg Documented by: RICK Ondansetron HCl (Ondansetron 4 Mg/2 Ml Inj) 4 mg IV NOW ONE Stop: 05/18/21 08:53 Last Admin: 05/18/21 09:32 Dose: 4 mg Documented by: RICK Reevaluation(s) Reevaluation #1: Pain-free this time. Reviewed with patient and . No acute findings. Appropriate for discharge home. She has office appointment in 2 days with family doctor. She was scheduled for colonoscopy at that time. No rectal bleeding here. Does not want a rectal exam this time as she has not had any rectal bleeding today Time: 12:22 Vital Signs Vital signs: Vital Signs - 8 hr 05/18/21 09:20 05/18/21 09:21 05/18/21 09:30 Pulse Rate 57 L 57 L 59 L Blood Pressure 169/75 H 155/75 H Pulse Oximetry 99 99 98 05/18/21 10:00 05/18/21 10:04 05/18/21 10:30 Pulse Rate 64 66 59 L Blood Pressure 169/100 H 170/78 H Pulse Oximetry 96 97 97 05/18/21 11:00 05/18/21 11:08 05/18/21 11:30 Pulse Rate 67 65 57 L Blood Pressure 164/74 H Pulse Oximetry 98 96 97 05/18/21 11:32 05/18/21 12:00 Pulse Rate 59 L 59 L Blood Pressure 155/66 H 141/68 H Pulse Oximetry 97 99 MDM - Abdominal Pain Differential Diagnosis Differential diagnosis: Likely abdominal pain, acute appendicitis, calculus of kidney, constipation, diverticulitis, gastroenteritis and small bowel obstruction Medical Records Attestation: I reviewed the patient's medical records. Lab Data Attestation: I reviewed the patient's lab results. Result diagrams: 05/18/21 09:20 05/18/21 09:20 Labs: Lab Results 05/18/21 05/18/21 05/18/21 Range/Units 09:17 09:20 09:20 WBC 8.8 (4.5-11.0) X10^3/uL RBC 4.74 (4.0-5.2) X10^6/uL Hgb 12.6 (12.0-16.0) g/dL Hct 38.2 (36-46) % MCV 80.6 (80-100) fL MCH 26.6 (26-34) PG MCHC 33.0 (30-36) % RDW 14.9 H (11.6-14.8) % Plt Count 364 (150-400) X10^3/uL Neut % (Auto) 67.0 (50-75) % Lymph % (Auto) 24.8 L (25-40) % [place] % (Auto) 6.1 (3-14) % Eos % (Auto) 1.4 L (2-4) % Baso % (Auto) 0.7 (0-2) % Neut # (Auto) 5900 (8097-4634) /uL Lymph # (Auto) 2200 (4140-7241) /uL [place] # (Auto) 500 (0-900) /uL Eos # (Auto) 100 (0-450) /uL Baso # (Auto) 100 (0-100) /uL Sodium 140 (137-145) mmol/L Potassium 4.1 (3.4-5.1) mmol/L Chloride 104 (98-107) mmol/L Carbon Dioxide 27 (22-32) mmol/L BUN 17 (7-17) mg/dL Creatinine 0.73 (0.52-1.04) mg/dL Estimated GFR > 60.0 (>60) mL/min BUN/Creatinine Ratio 23.3 H (6-22) Glucose 140 H (70-100) mg/dL Calcium 9.1 (8.4-10.2) mg/dL Total Bilirubin 0.6 (0.2-1.3) mg/dL AST 37 H (14-36) IU/L ALT 37 H (<35) IU/L Alkaline Phosphatase 88 (38-126) U/L Total Protein 7.4 (6.3-8.2) g/dL Albumin 4.4 (3.5-5.0) g/dL Globulin 3.0 (1.7-4.1) g/dL Albumin/Globulin Ratio 1.5 (1.0-2.8) Lipase 138 (23-300) U/L Urine RBC 1-5/hpf (0-5/HPF) Urine WBC 1-5/hpf (0-5/HPF) Ur Squamous Epith Cells 1-5 /hpf (0-5/HPF) Urine Bacteria None seen (None) Ur Culture Indicated? Cult not indicated Imaging Data CT scan - abdomen/pelvis: Radiologist's Impression: [address] [id number] Scan ReportSigned Patient: Hannah Castro AMR#: [id number]: 1965Acct:[id number]/Sex: 55 / FDate of Service: 05/18/21Loc: EDAccession Number: [id number] Procedure: CT abdomen pelvis w con Ordering Provider: Joe Rosa MD PROCEDURE: CT ABDOMEN PELVIS W CON INDICATIONS: IV contrast only/right lower quadrant pain TECHNIQUE: After the administration of intravenous contrast, axial sections acquired from the lung bases to the pubic symphysis. Coronal and sagittal reformats were performed. For radiation dose reduction, the following was used: automated exposure control, adjustment of mA and/or kV according to patient size. COMPARISON: [facility], CT, CT ABDOMEN PELVIS W CON, 02/10/2020, 10:26. FINDINGS: Image quality: Excellent. Lung bases: There is mild dependent atelectasis bilaterally. Heart: Heart size is enlarged. ABDOMEN: Liver: There is diffuse hypoattenuation of the liver consistent with fatty infiltration. Gallbladder: Surgically absent. Biliary ducts: Unremarkable. Pancreas: Unremarkable. Spleen: Unremarkable. Adrenal Glands: Unremarkable. Kidneys and Ureters: Unremarkable. Stomach and Bowel: Stomach, small bowel loops, and colon are unremarkable. The appendix is normal in appearance. There is colonic diverticulosis without acute diverticulitis. Peritoneum: No abnormal intraperitoneal fluid. No free air. Ventral Wall: No hernias. Abdominal Nodes: No retroperitoneal or mesenteric adenopathy by size criteria. Vessels: Aorta and inferior vena cava are normal in size. PELVIS: Pelvic Organs: The uterus and ovaries are surgically absent. Bladder: Unremarkable. Pelvic Nodes: No enlarged lymph nodes. Miscellaneous: No hernias are seen. Bones: Unremarkable. IMPRESSION: 1. No acute intra-abdominal abnormality. Specifically, no evidence of appendicitis or obstructive uropathy. 2. Hepatic steatosis. Dictated by: Varun Woodson M.D. on 05/18/2021 at 10:57 Approved by: Varun Woodson M.D. on 05/18/2021 at 11:07 [facility] Narrative Medical decision making narrative: Appropriate for discharge home. Laboratory studies and imaging reassuring. Pain improved after treatment here. They have follow-up in 2 days with family doctor for referral for colonoscopy. They desire discharge home Discharge Plan Departure Patient Disposition: Home Clinical Impression: Abdominal pain Instructions: DI for Abdominal Pain-Adult Activity Restrictions/Additional Instructions: See family doctor on this week as scheduled. Return if worse or any questions or concerns. No driving or operating machinery today. Will need to schedule colonoscopy with your family doctor. Prescriptions: No Action (DME) Disabled Parking Permit Qty: 1 RF: 0 escitalopram oxalate 20 mg tablet 20 mg PO DAILY Qty: 90 RF: 3 levothyroxine 50 mcg tablet 50 mcg PO DAILY Qty: 180 RF: 3 propranolol 20 mg tablet 40 mg PO BID Qty: 180 RF: 3 docusate calcium [Stool Softener (docusate lisa)] 240 mg capsule See Rx Instructions .ROUTE .COMPLEX Qty: 60 RF: 2 hydroxyzine HCl 25 mg tablet 50 mg PO .Q6 PRN (Reason: itching) Qty: 90 RF: 3 clindamycin HCl 300 mg capsule 300 mg PO TID Qty: 30 RF: 0 ibuprofen 800 mg tablet 800 mg PO TID PRN (Reason: pain) Qty: 10 RF: 0 cyclobenzaprine 10 mg tablet 10 mg PO Q8H PRN (Reason: muscle spasm) Qty: 14 RF: 0 Referrals: Mary Ellen Tapia MD [Primary Care Provider] - Stand Alone Forms: Work Release Note
[2021-05-18 09:24] LABS: Bacteria Urine None Seen
[2021-05-18 09:30] LABS: Add Manual Diff / Slide Review NO; Basophils Absolute Auto 100 /uL (0-100); Basophils Percent Auto 0.7 % (0-2); Eosinophils Absolute Auto 100 /uL (0-450); Eosinophils Percent Auto 1.4 % (2-4); Hematocrit 38.2 % (36-46); Hemoglobin 12.6 g/dL (12.0-16.0); Lymphocytes Absolute Auto 2200 /uL (1100-4500); Lymphocytes Percent Auto 24.8 % (25-40); Mean Corpuscular Hemoglobin 26.6 PG (26-34); Mean Corpuscular Volume 80.6 fL (80-100); Monocytes Absolute Auto 500 /uL (0-900); Monocytes Percent Auto 6.1 % (3-14); Neutrophils Absolute Auto 5900 /uL (1500-7000); Platelet Count 364 X10^3/uL (150-400); Red Blood Cell Count 4.74 X10^6/uL (4.0-5.2); Red Cell Distribution Width 14.9 % (11.6-14.8); White Blood Cell Count 8.8 X10^3/uL (4.5-11.0)
[2021-05-18] MEDS: SODIUM CHLORIDE 0.9% 1,000 ML 1000 ML IV (09:31)
[2021-05-18] MEDS: ONDANSETRON 4 MG/2 ML INJ IV (09:32)
[2021-05-18] MEDS: MORPHINE 4 MG/ML INJ IV (09:36)
[2021-05-18 09:42] LABS: RBC Urine 1-5/HPF (0-5/HPF); Squamous Epithelial Cell Urine 1-5 /HPF (0-5/HPF); WBC Urine 1-5/HPF (0-5/HPF)
[2021-05-18 09:43] LABS: Culture Indicated Urine Cult Not Indicated
[2021-05-18 10:36] LABS: Alanine Aminotransferase 37 IU/L (<35); Albumin 4.4 g/dL (3.5-5.0); Albumin Globulin Ratio 1.5 (1.0-2.8); Alkaline Phosphatase 88 U/L (38-126); Aspartate Aminotransferase 37 IU/L (14-36); BUN Creatinine Ratio 23.3 (6-22); Bilirubin Total 0.6 mg/dL (0.2-1.3); Blood Urea Nitrogen 17 mg/dL (7-17); Calcium 9.1 mg/dL (8.4-10.2); Carbon Dioxide 27 mmol/L (22-32); Chloride 104 mmol/L (98-107); Estimated Glomerular Filt Rate > 60.0 mL/min (>60); Glucose 140 mg/dL (70-100); HEMOLYSIS < 15 (0-50); Lipase 138 U/L (23-300); Potassium 4.1 mmol/L (3.4-5.1); Sodium 140 mmol/L (137-145); Total Protein 7.4 g/dL (6.3-8.2)
--- NOTE | 2021-05-18 10:42 | DI.CT.S_ITS ---
PROCEDURE: CT ABDOMEN PELVIS W CON INDICATIONS: IV contrast only/right lower quadrant pain TECHNIQUE: After the administration of intravenous contrast, axial sections acquired from the lung bases to the pubic symphysis. Coronal and sagittal reformats were performed. For radiation dose reduction, the following was used: automated exposure control, adjustment of mA and/or kV according to patient size. COMPARISON: [facility], CT, CT ABDOMEN PELVIS W CON, 02/10/2020, 10:26. FINDINGS: Image quality: Excellent. Lung bases: There is mild dependent atelectasis bilaterally. Heart: Heart size is enlarged. ABDOMEN: Liver: There is diffuse hypoattenuation of the liver consistent with fatty infiltration. Gallbladder: Surgically absent. Biliary ducts: Unremarkable. Pancreas: Unremarkable. Spleen: Unremarkable. Adrenal Glands: Unremarkable. Kidneys and Ureters: Unremarkable. Stomach and Bowel: Stomach, small bowel loops, and colon are unremarkable. The appendix is normal in appearance. There is colonic diverticulosis without acute diverticulitis. Peritoneum: No abnormal intraperitoneal fluid. No free air. Ventral Wall: No hernias. Abdominal Nodes: No retroperitoneal or mesenteric adenopathy by size criteria. Vessels: Aorta and inferior vena cava are normal in size. PELVIS: Pelvic Organs: The uterus and ovaries are surgically absent. Bladder: Unremarkable. Pelvic Nodes: No enlarged lymph nodes. Miscellaneous: No hernias are seen. Bones: Unremarkable. IMPRESSION: 1. No acute intra-abdominal abnormality. Specifically, no evidence of appendicitis or obstructive uropathy. 2. Hepatic steatosis. Dictated by: Varun Woodson M.D. on 05/18/2021 at 10:57 Approved by: Varun Woodson M.D. on 05/18/2021 at 11:07
== END 2021-05-18 12:30 | disposition home or self-care (01) ==
PROVIDERS: Emergency Provider Emergency Medicine; PCP Internal Medicine
DX: R10.31 Right lower quadrant pain (principal)
CPT/HCPCS: 36415; 74177; 80053; 81015; 83690; 85025; 96361; 96374; 96375; 99284; J2270; J2405

== ENCOUNTER 2021-07-06 15:23 | Emergency (ER) | payer SELFPAY ==
[2021-07-06 15:31] VITALS: BP 121/69; PULSE 82; RESP 18; TEMP 36.6; O2SAT 98; BMI 37.0
[2021-07-06 15:53] LABS: Add Manual Diff / Slide Review NO; Basophils Absolute Auto 100 /uL (0-100); Basophils Percent Auto 0.7 % (0-2); Eosinophils Absolute Auto 700 /uL (0-450); Eosinophils Percent Auto 5.7 % (2-4); Hematocrit 34.8 % (36-46); Hemoglobin 11.7 g/dL (12.0-16.0); Lymphocytes Absolute Auto 2900 /uL (1100-4500); Lymphocytes Percent Auto 24.7 % (25-40); Mean Corpuscular HGB Conc 33.6 % (30-36); Mean Corpuscular Hemoglobin 27.1 PG (26-34); Mean Corpuscular Volume 80.7 fL (80-100); Monocytes Absolute Auto 700 /uL (0-900); Monocytes Percent Auto 6.1 % (3-14); Neutrophils Absolute Auto 7300 /uL (1500-7000); Neutrophils Percent Auto 62.8 % (50-75); Platelet Count 373 X10^3/uL (150-400); Red Blood Cell Count 4.31 X10^6/uL (4.0-5.2); Red Cell Distribution Width 14.5 % (11.6-14.8); White Blood Cell Count 11.7 X10^3/uL (4.5-11.0)
[2021-07-06 15:54] LABS: Bacteria Urine None Seen
[2021-07-06 16:04] LABS: BUN Creatinine Ratio 23.2 (6-22); Blood Urea Nitrogen 16 mg/dL (7-17); Calcium 9.3 mg/dL (8.4-10.2); Carbon Dioxide 24 mmol/L (22-32); Chloride 105 mmol/L (98-107); Estimated Glomerular Filt Rate > 60.0 mL/min (>60); Glucose 135 mg/dL (70-100); HEMOLYSIS < 15 (0-50); Potassium 3.7 mmol/L (3.4-5.1); Sodium 139 mmol/L (137-145)
[2021-07-06 16:15] LABS: Calcium Oxalate Crystals Urine Many; RBC Urine 1-5/HPF (0-5/HPF); Squamous Epithelial Cell Urine 0-1 /HPF (0-5/HPF); WBC Urine 0-1/HPF (0-5/HPF)
[2021-07-06 16:16] LABS: Culture Indicated Urine Cult Not Indicated; Mucus Urine 2+ (Negative)
== END 2021-07-06 17:50 | disposition left against medical advice (07) ==
PROVIDERS: Emergency Provider Emergency Medicine; PCP Family Medicine
DX: K92.1 Melena (principal); R19.7 Diarrhea, unspecified; R42 Dizziness and giddiness; R41.0 Disorientation, unspecified
CPT/HCPCS: 36415; 80048; 81003; 81015; 85025; 93005; 99283

== ENCOUNTER 2021-09-29 16:44 | Emergency (ER) | payer OTHER, MEDICAID, SELFPAY ==
[2021-09-29 16:45] VITALS: BP 131/72; PULSE 70; RESP 16; TEMP 37.1; O2SAT 95
[2021-09-29 17:52] LABS: COVID19 -Nasal RAPID POSITIVE (Negative)
--- NOTE | 2021-09-29 19:35 | ED_ITS ---
HPI - URI/Sore Throat <Lisa Dietrich, [facility] - Last Filed: 09/29/21 19:55> General Chief Complaint: Upper Respiratory Symptoms Stated Complaint: states needs covid test Time Seen by Provider: 09/29/21 17:02 Source: patient Mode of arrival: Ambulatory Limitations: no limitations History of Present Illness HPI Narrative: The patient is a 55-year-old female nonsmoker with history of atrial fibrillation who presents with her for chief complaint of needing a COVID test. She started being symptomatic on MondaySeptember 26. Her started being symptomatic with a before. He tested positive today. She states that she is congested, has cough, denies any chest pain or shortness of breath. She is concerned because she has comorbidities including AFib and obesity. She denies any fevers, complains of muscle aches and chills, denies any nausea vomiting diarrhea or abdominal pain. She states the cough is providing her from sleeping. She is fully vaccinated against COVID, as is her . Related Data Previous Rx's Medication Instructions Recorded Disabled Parking Permit #1 ea 04/04/19 docusate calcium 240 mg capsule See Rx Instructions .ROUTE 07/02/20 (Stool Softener (docusate calcium)) .COMPLEX #60 capsule cyclobenzaprine 10 mg tablet 10 mg PO Q8H PRN #60 tab 05/21/21 escitalopram oxalate 20 mg tablet 30 mg PO DAILY #135 tab 05/21/21 ibuprofen 800 mg tablet 800 mg PO TID PRN #10 tab 05/21/21 levothyroxine 50 mcg tablet 100 mcg PO DAILY #120 tab 05/26/21 propranolol 40 mg tablet 40 mg PO BID #180 tab 07/08/21 hydroxyzine HCl 50 mg tablet See Rx Instructions .ROUTE 09/07/21 .COMPLEX #30 tab benzonatate 100 mg capsule 100 mg PO BID-TID PRN #20 cap 09/29/21 (Sanjay Morin) Allergies Allergy/AdvReac Type Severity Reaction Status Date / Time lorazepam [From Ativan] Allergy Intermediate itching Verified 07/08/21 13:23 sertraline [SERTRALINE] Allergy Unknown Verified 07/08/21 13:23 codeine [CODEINE] AdvReac Mild vomiting Verified 07/08/21 13:23 hydrocodone [HYDROCODONE] AdvReac Mild vomiting Verified 07/08/21 13:23 ibuprofen [IBUPROFEN] AdvReac Mild gi upset Verified 07/08/21 13:23 Penicillins [PENICILLINS] AdvReac Mild vomiting Verified 07/08/21 13:23 Sulfa (Sulfonamide AdvReac Mild headache Verified 07/08/21 13:23 Antibiotics) [SULFA (SULFONAMIDE ANTIBIOTICS)] Review of Systems <TIFFANIE Langley - Last Filed: 09/29/21 19:55> Review of Systems Narrative: GENERAL: See HPI HEENT: Denies sinus pain, ear pain, sore throat, difficulty swallowing, dizziness. RESPIRATORY: See HPI CARDIOVASCULAR: Denies chest pain, palpitations, orthopnea, edema, GASTROINTESTINAL: Denies nausea, vomiting, abdominal pain, diarrhea, constipation, melena. : Denies dysuria, frequency, incontinence, hematuria, urinary retention. MUSCULOSKELETAL: denies weakness, joint pain, or bony pain SKIN: Denies rash, skin lesions, or other NEUROLOGIC: Denies weakness, headache, numbness, change in speech, confusion, seizures, incoordination. PSYCHIATRIC: No concerning psychosocial issues. 12 point review of systems is negative except for those stated above Patient History <TIFFANIE Langley - Last Filed: 09/29/21 19:55> Medical History Afib Anemia Depression PTSD (post-traumatic stress disorder) Social History household members: spouse occupational status: unemployed Smoking Status: Never smoker Smoking Status: Never smoker alcohol intake frequency: 0-2 drinks per day Substance Use Type: does not use Exam <TIFFANIE Langley - Last Filed: 09/29/21 19:55> Narrative Exam Narrative: GENERAL: This is a well-nourished, well-developed patient, in no acute distress HEAD: Atraumatic. Normocephalic. No temporal or scalp tenderness. EYES: Pupils equal round and reactive. Extraocular motions intact. No scleral icterus. No injection or drainage. ENT: Nose without bleeding, purulent drainage or septal hematoma. Throat without erythema, tonsillar hypertrophy or exudate. Uvula midline. Airway patent. NECK: Trachea midline. No JVD or lymphadenopathy. Supple, nontender, no meningeal signs. CARDIOVASCULAR: Regular rate and rhythm RESPIRATORY: Clear to auscultation. Breath sounds equal bilaterally. No wheezes, rales, or rhonchi. Persistent cough noted during exam GASTROINTESTINAL: Abdomen soft, non-tender, nondistended. No guarding EXTREMITIES: No clubbing, cyanosis, or edema. No joint tenderness, effusion, or edema noted. BACK: Nontender without deformity or crepitance. No flank tenderness. NEURO: AOx3. Interactive. Age appropriate. SKIN: No rash or erythema on visible skin Initial Vital Signs Initial Vital Signs: Vital Signs Temperature 98.7 F 09/29/21 16:45 Pulse Rate 70 09/29/21 16:45 Respiratory Rate 16 09/29/21 16:45 Blood Pressure 131/72 09/29/21 16:45 Pulse Oximetry 95 09/29/21 16:45 <Lisa Rose DO - Last Filed: 09/30/21 02:31> Initial Vital Signs Initial Vital Signs: Vital Signs Temperature 98.7 F 09/29/21 16:45 Pulse Rate 70 09/29/21 16:45 Respiratory Rate 16 09/29/21 16:45 Blood Pressure 131/72 09/29/21 16:45 Pulse Oximetry 95 09/29/21 16:45 Scores <TIFFANIE Langley - Last Filed: 09/29/21 19:55> GCS Amy coma scale eye opening: Spontaneous Amy coma scale verbal response: Orientated Amy coma scale motor response: Obey commands [place] coma scale total score: 15 <Lisa Rose DO - Last Filed: 09/30/21 02:31> GCS Aym coma scale total score: 15 Course <TIFFANIE Langley - Last Filed: 09/29/21 19:55> Orders Ordered: ED Orders 09/29/21 16:50 COVID19 -Nasal swab/Pre-Proc Stat Vital Signs Vital signs: Vital Signs - 8 hr 09/29/21 19:48 Pulse Rate 67 Respiratory Rate 18 Blood Pressure 136/69 Pulse Oximetry 97 <Lisa Rose DO - Last Filed: 09/30/21 02:31> Orders Ordered: ED Orders 09/29/21 16:50 COVID19 -Nasal swab/Pre-Proc Stat Vital Signs Vital signs: Vital Signs - 8 hr 09/29/21 19:48 Pulse Rate 67 Respiratory Rate 18 Blood Pressure 136/69 Pulse Oximetry 97 MDM - URI/Sore Throat <ALONZO LangleyBC - Last Filed: 09/29/21 19:55> Lab Data Labs: Lab Results 09/29/21 Range/Units 16:50 SARS-CoV-2 (PCR) Positive H (Negative) MDM Narrative Medical decision making narrative: The patient is a fully vaccinated 55-year-old female who presents with a chief complaint of needing a COVID test as her tested positive. She test positive today. However sees oxygenating well at 97% on room air no acute distress. Given her comorbidities including obesity, atrial fibrillation, she does want to have an antibody infusion. The correct paperwork was filled out and faxed as she does qualify. I discussed at length rest, [id number] medications as needed and able, I did give her prescription of Tessalon Perles for cough, encouraged use of Flonase and Neti pot given her congestion. Discussed at length follow up with primary care provider. Patient has been hemodynamically stable well appearing throughout her stay in the ER. Patient has no questions or concerns upon discharge and states understanding return precautions as well as follow-up care. <Lisa Rose DO - Last Filed: 09/30/21 02:31> Lab Data Labs: Lab Results 09/29/21 Range/Units 16:50 SARS-CoV-2 (PCR) Positive H (Negative) Discharge Plan Departure Patient Disposition: Home Clinical Impression: COVID-19 Instructions: DI for COVID-19 (Suspected or Confirmed ), Coronavirus Disease 2019, Can COVID-19 be prevented? Activity Restrictions/Additional Instructions: Thank you for trusting us with your care today. As discussed, you did test positive for COVID-19. Please rest at home, push fluids, use [id number] remedies as needed and able. I did send a prescription of Tessalon Perles to [facility]. We have also faxed over information for you to get antibodies via [facility]. They should be contacting you. Please take vitamin-C and vitamin-D. I also suggest Neti pot and Flonase. You can also get a home SpO2 monitor to monitor your oxygen. Today your oxygen is very good. We want to make sure it stays at least 94% on room air. Please follow-up with primary care provider Please come back to the emergency department for any acute concerns such as chest pain, shortness of breath etcetera Prescriptions: New benzonatate [Tessalon Perles] 100 mg capsule 100 mg PO BID-TID PRN (Reason: cough) Qty: 20 RF: 0 No Action (DME) Disabled Parking Permit Qty: 1 RF: 0 docusate calcium [Stool Softener (docusate lisa)] 240 mg capsule See Rx Instructions .ROUTE .COMPLEX Qty: 60 RF: 2 levothyroxine 50 mcg tablet 100 mcg PO DAILY Qty: 120 RF: 1 hydroxyzine HCl 50 mg tablet See Rx Instructions .ROUTE .COMPLEX Qty: 30 RF: 0 escitalopram oxalate 20 mg tablet 30 mg PO DAILY Qty: 135 RF: 3 ibuprofen 800 mg tablet 800 mg PO TID PRN (Reason: pain) Qty: 10 RF: 0 cyclobenzaprine 10 mg tablet 10 mg PO Q8H PRN (Reason: muscle spasm) Qty: 60 RF: 0 propranolol 40 mg tablet 40 mg PO BID Qty: 180 RF: 3 Referrals: Amarjit Gramajo MD [Primary Care Provider] - Stand Alone Forms: Work Release Note <Lisa Rose DO - Last Filed: 09/30/21 02:31> [facility] [place] Attestation: I was immediately available in the department for consultation. Documentation has been reviewed.
[2021-09-29 19:48] VITALS: BP 136/69; PULSE 67; RESP 18; O2SAT 97
== END 2021-09-29 19:48 | disposition home or self-care (01) ==
PROVIDERS: Emergency Medicine; Emergency Provider Nurse Practitioner Family; PCP Family Medicine
DX: U07.1 COVID-19 (principal)
CPT/HCPCS: 87635; 99281; 99282; C9803

== ENCOUNTER → 2021-10-09 11:09 | Outpatient (CLI) | payer OTHER, MEDICAID, SELFPAY ==
[2021-10-09 11:35] LABS: COVID19 -Nasal RAPID POSITIVE (Negative)
== END ==
PROVIDERS: PCP Family Medicine; Visit Provider Nurse Practitioner Family
DX: Z20.822 Contact with and (suspected) exposure to COVID-19 (principal)
CPT/HCPCS: 87635

== ENCOUNTER → 2021-10-12 14:33 | Outpatient (CLI) | payer OTHER, MEDICAID, SELFPAY ==
[2021-10-12 15:06] LABS: Add Manual Diff / Slide Review NO; Basophils Absolute Auto 100 /uL (0-100); Basophils Percent Auto 0.8 % (0-2); Eosinophils Absolute Auto 100 /uL (0-450); Eosinophils Percent Auto 1.7 % (2-4); Hematocrit 35.4 % (36-46); Hemoglobin 11.8 g/dL (12.0-16.0); Lymphocytes Absolute Auto 2000 /uL (1100-4500); Lymphocytes Percent Auto 23.1 % (25-40); Mean Corpuscular HGB Conc 33.4 % (30-36); Mean Corpuscular Hemoglobin 25.8 PG (26-34); Mean Corpuscular Volume 77.4 fL (80-100); Monocytes Absolute Auto 500 /uL (0-900); Monocytes Percent Auto 5.2 % (3-14); Neutrophils Absolute Auto 6000 /uL (1500-7000); Neutrophils Percent Auto 69.2 % (50-75); Platelet Count 393 X10^3/uL (150-400); Red Blood Cell Count 4.57 X10^6/uL (4.0-5.2); Red Cell Distribution Width 14.4 % (11.6-14.8); White Blood Cell Count 8.6 X10^3/uL (4.5-11.0)
--- NOTE | 2021-10-12 15:28 | DI.RAD.S_ITS ---
PROCEDURE: XR CHEST 2V INDICATIONS: chronic cough TECHNIQUE: 2 views of the chest were acquired. COMPARISON: [facility], CR, XR CHEST 2V, 09/27/2019, 11:52. FINDINGS: Surgical changes and devices: None. Lungs and pleura: Lungs are clear. No pleural effusions or pneumothorax. Mediastinum: Mediastinal contours are normal. Heart size is normal. Bones and chest wall: No suspicious bony abnormalities. Soft tissues appear unremarkable. IMPRESSION: No source for chronic cough identified radiographically. Dictated by: Emile Tavarez [facility] Interpreted: Sania Adams MD on 10/12/2021 at 16:00 Transcribed by: ANGEL on 10/12/2021 at 16:00 Approved by: Sania Adams MD, PhD on 10/12/2021 at 18:07
[2021-10-12 16:18] LABS: INR 1.1 (0.9-1.3); Prothrombin Time 12.7 SECONDS (10.1-12.7)
[2021-10-12 16:21] LABS: PTT Partial Thromboplastin Tim 44 SECONDS (26.4-36.2)
[2021-10-12 16:31] LABS: Alanine Aminotransferase 28 IU/L (<35); Albumin 4.2 g/dL (3.5-5.0); Albumin Globulin Ratio 1.4 (1.0-2.8); Alkaline Phosphatase 91 U/L (38-126); Aspartate Aminotransferase 30 IU/L (14-36); BUN Creatinine Ratio 18.8 (6-22); Bilirubin Total 0.3 mg/dL (0.2-1.3); Blood Urea Nitrogen 12 mg/dL (7-17); Calcium 9.1 mg/dL (8.4-10.2); Carbon Dioxide 23 mmol/L (22-32); Chloride 103 mmol/L (98-107); Estimated Glomerular Filt Rate > 60.0 mL/min (>60); Globulin 2.9 g/dL (1.7-4.1); Glucose 231 mg/dL (70-100); HEMOLYSIS < 15 (0-50); Potassium 3.9 mmol/L (3.4-5.1); Sodium 137 mmol/L (137-145); Total Protein 7.1 g/dL (6.3-8.2)
[2021-10-12 17:09] LABS: TSH w/ Reflex to FT4 2.82 uIU/mL (0.47-4.68)
== END ==
PROVIDERS: PCP Family Medicine; Referring Provider Family Medicine; Visit Provider Family Medicine
DX: D64.9 Anemia, unspecified (principal); E03.9 Hypothyroidism, unspecified; R74.8 Abnormal levels of other serum enzymes; F41.9 Anxiety disorder, unspecified
CPT/HCPCS: 36415; 71046; 80053; 84443; 85025; 85610; 85730

== ENCOUNTER 2022-01-19 10:42 | Emergency (ER) | payer OTHER, MEDICAID, SELFPAY ==
[2022-01-19] VITALS (9 sets, daily range): BP systolic 148–190; BP diastolic 67–77; PULSE 56–74; RESP 6–20; TEMP 37; O2SAT 97–99; BMI 34.0
[2022-01-19 11:33] LABS: Bacteria Urine None Seen; Culture Indicated Urine Cult Not Indicated; RBC Urine None Seen (0-5/HPF); Squamous Epithelial Cell Urine 1-5 /HPF (0-5/HPF); WBC Urine None Seen (0-5/HPF)
[2022-01-19 11:37] LABS: COVID19 -Nasal RAPID Negative (Negative)
[2022-01-19 11:57] LABS: Add Manual Diff / Slide Review NO; Basophils Absolute Auto 100 /uL (0-100); Basophils Percent Auto 0.9 % (0-2); Eosinophils Absolute Auto 200 /uL (0-450); Eosinophils Percent Auto 1.5 % (2-4); Hematocrit 39.1 % (36-46); Hemoglobin 12.8 g/dL (12.0-16.0); Lymphocytes Absolute Auto 2200 /uL (1100-4500); Lymphocytes Percent Auto 21.3 % (25-40); Mean Corpuscular HGB Conc 32.7 % (30-36); Mean Corpuscular Hemoglobin 25.4 PG (26-34); Mean Corpuscular Volume 77.5 fL (80-100); Monocytes Absolute Auto 600 /uL (0-900); Monocytes Percent Auto 5.5 % (3-14); Neutrophils Absolute Auto 7300 /uL (1500-7000); Neutrophils Percent Auto 70.8 % (50-75); Platelet Count 394 X10^3/uL (150-400); Red Blood Cell Count 5.04 X10^6/uL (4.0-5.2); Red Cell Distribution Width 15.1 % (11.6-14.8); White Blood Cell Count 10.3 X10^3/uL (4.5-11.0)
[2022-01-19] MEDS: SODIUM CHLORIDE 0.9% 1,000 ML 1000 ML IV (11:57)
[2022-01-19 11:59] LABS: Carbon Dioxide 25 mmol/L (22-32); Chloride 102 mmol/L (98-107)
[2022-01-19 12:03] LABS: Alanine Aminotransferase 60 IU/L (<35); Albumin 4.7 g/dL (3.5-5.0); Albumin Globulin Ratio 1.3 (1.0-2.8); Alkaline Phosphatase 141 U/L (38-126); Aspartate Aminotransferase 57 IU/L (14-36); BUN Creatinine Ratio 20.8 (6-22); Bilirubin Total 0.5 mg/dL (0.2-1.3); Blood Urea Nitrogen 15 mg/dL (7-17); Calcium 9.7 mg/dL (8.4-10.2); Creatine Kinase 67 U/L (30-135); Estimated Glomerular Filt Rate > 60.0 mL/min (>60); Globulin 3.6 g/dL (1.7-4.1); Glucose 337 mg/dL (70-100); HEMOLYSIS < 15 (0-50); Lipase 185 U/L (23-300); Potassium 4.4 mmol/L (3.4-5.1); Sodium 134 mmol/L (137-145); Total Protein 8.3 g/dL (6.3-8.2)
[2022-01-19] MEDS: ACETAMINOPHEN 325 MG TABLET 650 MG PO (12:10)
[2022-01-19] MEDS: ONDANSETRON 4 MG/2 ML INJ IV (12:10)
[2022-01-19 12:11] LABS: Troponin I < 0.012 ng/mL (0.01-0.034)
--- NOTE | 2022-01-19 12:13 | ED_ITS ---
HPI - Nausea/Vomiting/Diarrhea <Tawanna Galindo [facility] - Last Filed: 01/19/22 16:10> General Chief complaint: Nausea/Vomiting/Diarrhea Stated complaint: Dizzy, headache, fatigue, nausea Time Seen by Provider: 01/19/22 11:45 Source: patient Mode of arrival: Ambulatory History of Present Illness HPI Narrative: 56-year-old female with past medical history of anxiety, depression, PTSD, hypothyroidism, presents to the emergency department with multiple complaints. Patient states that she is nauseated, she has been for a week since she tripped on the end of her bed in a trailer and fell onto the bed onto her abdomen. Patient complains of epigastric pain, nausea, no vomiting, but endorses chills and a cough which is normal for her. She is COVID vaccinated x2, endorses living in a trailer that is leaking, she states she does not have another living option at that time, she sees Behavioral Health and Dr. Gramajo her primary care provider. Patient states that she stopped taking her antidepressant approximate ly 2 weeks ago because she thought it was making her abdomen hurt. Then she states that her abdomen started hurting after she fell on it. Patient has a wound on the right lateral upper thigh which is approximately 3-week-old, scabbed over, without redness, pain, or rash surrounding. Patient was like to speak with certified social workers in health care about resources available, she denies any chest pain, she denies any weakness, shortness of breath, wheezing, known fever, dysuria, back pain, or any new or worsening symptoms other than her nausea and epigastric pain. Patient has had a cholecystectomy in the past Related Data Previous Rx's Medication Instructions Recorded Disabled Parking Permit #1 ea 04/04/19 benzonatate 100 mg capsule 100 mg PO BID-TID PRN #20 cap 09/29/21 (Tessalon Perles) docusate calcium 240 mg capsule See Rx Instructions .ROUTE 10/12/21 (Stool Softener (docusate calcium)) .COMPLEX #60 capsule escitalopram oxalate 20 mg tablet 30 mg PO DAILY #135 tab 10/12/21 hydroxyzine HCl 50 mg tablet See Rx Instructions .ROUTE 10/12/21 .COMPLEX #30 tab levothyroxine 50 mcg tablet 100 mcg PO DAILY #120 tab 10/12/21 propranolol 40 mg tablet 40 mg PO BID #180 tab 10/12/21 cyclobenzaprine 10 mg tablet 10 mg PO Q8H PRN #14 tab 12/22/21 ibuprofen 800 mg tablet See Rx Instructions .ROUTE 01/03/22 .COMPLEX #90 tab pantoprazole 20 mg tablet,delayed 20 mg PO DAILY #20 tab 01/19/22 release Allergies Allergy/AdvReac Type Severity Reaction Status Date / Time lorazepam [From Ativan] Allergy Intermediate itching Verified 12/22/21 14:31 sertraline [SERTRALINE] Allergy Unknown Verified 12/22/21 14:31 codeine [CODEINE] AdvReac Mild vomiting Verified 12/22/21 14:31 hydrocodone [HYDROCODONE] AdvReac Mild vomiting Verified 12/22/21 14:31 ibuprofen [IBUPROFEN] AdvReac Mild gi upset Verified 12/22/21 14:31 Penicillins [PENICILLINS] AdvReac Mild vomiting Verified 12/22/21 14:31 Sulfa (Sulfonamide AdvReac Mild headache Verified 12/22/21 14:31 Antibiotics) [SULFA (SULFONAMIDE ANTIBIOTICS)] Review of Systems <JONG Elizabeth - Last Filed: 01/19/22 16:10> Review of Systems Narrative: General: endorses chills, denies malaise, sweats, fatigue Head/Neck: denies headache, neck pain, endorses dizziness Eyes: denies visual changes, eye pain Cardio: denies chest pain, palpitations, edema Respiratory: denies dyspnea, cough, orthopnea GI: Endorses right upper quadrant abdominal pain, nausea without vomiting denies diarrhea : denies dysuria, hematuria, urinary retention, frequency or incontinence MSK: denies joint pain, muscle weakness Skin: denies rash, itching, skin lesions or other Neuro: denies numbness, tingling Patient History <JONG Elizabeth - Last Filed: 01/19/22 16:10> Medical History Afib Anemia Depression Hyperglycemia PTSD (post-traumatic stress disorder) Social History household members: spouse occupational status: unemployed Smoking Status: Never smoker Smoking Status: Never smoker alcohol intake frequency: 0-2 drinks per day Substance Use Type: does not use Exam <JONG Elizabeth - Last Filed: 01/19/22 16:10> Narrative Exam Narrative: Independently reviewed vitals signs and nursing notes. General: Cooperative, comfortable, in no acute distress, well developed and well groomed Head/Neck: Normal visual inspection and supple, atraumatic, no JVD or lymphadenopathy. Normal facial exam Eyes: Pupils equal round and reactive, EOMI, conjunctiva normal, no scleral icterus or injections Nose: External nose normal, nares patent, no rhinorrhea, without purulent drainage Mouth/Throat: uvula midline, moist mucus membranes Cardio: Regular rate and rhythm, no peripheral edema, warm extremities Respiratory: Normal respiratory effort, able to speak in complete sentences without audible wheezing, stridor, or rales. No retractions. GI: Abdomen soft, tender over epigastrium, nondistended, obese, no masses or exquisite tenderness with exam, no flank tenderness nontender, other quadrants MSK: Moves all extremities, neurovascularly intact Skin: Normal capillary refill, no rash Neuro: Normal speech and cognition, normal gait, A&O x3, tone normal, moves all extremities Psych: Mental status is grossly normal, speech is clear, congruent mood, normal affect Initial Vital Signs Initial Vital Signs: Vital Signs Temperature 98.6 F 01/19/22 10:46 Pulse Rate 74 01/19/22 10:46 Respiratory Rate 18 01/19/22 10:46 Blood Pressure 190/77 H 01/19/22 10:46 Pulse Oximetry 98 01/19/22 10:46 <Glen Franklin DO - Last Filed: 01/19/22 16:26> Initial Vital Signs Initial Vital Signs: Vital Signs Temperature 98.6 F 01/19/22 10:46 Pulse Rate 74 01/19/22 10:46 Respiratory Rate 18 01/19/22 10:46 Blood Pressure 190/77 H 01/19/22 10:46 Pulse Oximetry 98 01/19/22 10:46 Course <JONG Elizabeth - Last Filed: 01/19/22 16:10> Orders Ordered: ED Orders 01/19/22 10:52 COVID19 -Nasal swab/Pre-Proc Stat 01/19/22 11:01 Consult to CIO - Operations And Maintenance Manager Stat 01/19/22 11:19 Urine Microscopic Stat 01/19/22 11:30 Complete Blood Count AUTO DIFF Stat Comprehensive Metabolic Panel Stat Lipase Stat Troponin & CK Cardiac Panel Stat 01/19/22 11:45 EKG-12 Lead Stat 01/19/22 14:02 US abdomen limited Stat Discontinued Medications Acetaminophen (Acetaminophen 325 Mg Tablet) 650 mg PO NOW ONE Stop: 01/19/22 12:06 Last Admin: 01/19/22 12:10 Dose: 650 mg Documented by: JENA Escitalopram Oxalate (Escitalopram 10 Mg Tablet) 30 mg PO NOW ONE Stop: 01/19/22 13:27 Last Admin: 01/19/22 13:35 Dose: 30 mg Documented by: JENA Famotidine (Famotidine 20 Mg Tablet) 20 mg PO BID ONE Stop: 01/19/22 12:30 Last Admin: 01/19/22 13:35 Dose: 20 mg Documented by: JENA Sodium Chloride (Normal Saline 0.9%) 1,000 mls @ 1,000 mls/hr IV BOLUS ONE Stop: 01/19/22 12:44 Last Infusion: 01/19/22 13:30 Dose: 0 mls/hr Documented by: Admin: 01/19/22 11:57 Dose: 1,000 mls/hr Documented by: JENA Meclizine HCl (Meclizine Hcl 12.5 Mg Tablet) 25 mg PO NOW ONE Stop: 01/19/22 13:24 Last Admin: 01/19/22 13:34 Dose: 25 mg Documented by: JENA Ondansetron HCl (Ondansetron 4 Mg/2 Ml Inj) 4 mg IV NOW ONE Stop: 01/19/22 12:06 Last Admin: 01/19/22 12:10 Dose: 4 mg Documented by: JENA Vital Signs Vital signs: Vital Signs - 8 hr 01/19/22 10:46 01/19/22 12:00 01/19/22 12:02 Temperature 98.6 F Pulse Rate 74 64 62 Respiratory Rate 18 15 6 L Blood Pressure 190/77 H 148/70 H Pulse Oximetry 98 97 01/19/22 12:30 01/19/22 13:00 01/19/22 13:01 Temperature Pulse Rate 66 60 59 L Respiratory Rate 14 20 17 Blood Pressure 151/67 H 166/71 H Pulse Oximetry 98 97 98 01/19/22 13:30 01/19/22 14:00 01/19/22 14:30 Temperature Pulse Rate 56 L 64 58 L Respiratory Rate 20 Blood Pressure Pulse Oximetry 98 97 99 <Glen Rigoberto DO - Last Filed: 01/19/22 16:26> Orders Ordered: ED Orders 01/19/22 10:52 COVID19 -Nasal swab/Pre-Proc Stat 01/19/22 11:01 Consult to CIO - Operations And Maintenance Manager Stat 01/19/22 11:19 Urine Microscopic Stat 01/19/22 11:30 Complete Blood Count AUTO DIFF Stat Comprehensive Metabolic Panel Stat Lipase Stat Troponin & CK Cardiac Panel Stat 01/19/22 11:45 EKG-12 Lead Stat 01/19/22 14:02 US abdomen limited Stat Discontinued Medications Acetaminophen (Acetaminophen 325 Mg Tablet) 650 mg PO NOW ONE Stop: 01/19/22 12:06 Last Admin: 01/19/22 12:10 Dose: 650 mg Documented by: JENA Escitalopram Oxalate (Escitalopram 10 Mg Tablet) 30 mg PO NOW ONE Stop: 01/19/22 13:27 Last Admin: 01/19/22 13:35 Dose: 30 mg Documented by: JENA Famotidine (Famotidine 20 Mg Tablet) 20 mg PO BID ONE Stop: 01/19/22 12:30 Last Admin: 01/19/22 13:35 Dose: 20 mg Documented by: JENA Sodium Chloride (Normal Saline 0.9%) 1,000 mls @ 1,000 mls/hr IV BOLUS ONE Stop: 01/19/22 12:44 Last Infusion: 01/19/22 13:30 Dose: 0 mls/hr Documented by: Admin: 01/19/22 11:57 Dose: 1,000 mls/hr Documented by: JENA Meclizine HCl (Meclizine Hcl 12.5 Mg Tablet) 25 mg PO NOW ONE Stop: 01/19/22 13:24 Last Admin: 01/19/22 13:34 Dose: 25 mg Documented by: JENA Ondansetron HCl (Ondansetron 4 Mg/2 Ml Inj) 4 mg IV NOW ONE Stop: 01/19/22 12:06 Last Admin: 01/19/22 12:10 Dose: 4 mg Documented by: JENA Vital Signs Vital signs: Vital Signs - 8 hr 01/19/22 10:46 01/19/22 12:00 01/19/22 12:02 Temperature 98.6 F Pulse Rate 74 64 62 Respiratory Rate 18 15 6 L Blood Pressure 190/77 H 148/70 H Pulse Oximetry 98 97 01/19/22 12:30 01/19/22 13:00 01/19/22 13:01 Temperature Pulse Rate 66 60 59 L Respiratory Rate 14 20 17 Blood Pressure 151/67 H 166/71 H Pulse Oximetry 98 97 98 01/19/22 13:30 01/19/22 14:00 01/19/22 14:30 Temperature Pulse Rate 56 L 64 58 L Respiratory Rate 20 Blood Pressure Pulse Oximetry 98 97 99 MDM - Nausea/Vomiting/Diarrhea <JONG Elizabeth - Last Filed: 01/19/22 16:10> Lab Data Result diagrams: 01/19/22 11:30 01/19/22 11:30 Labs: Lab Results 01/19/22 01/19/22 01/19/22 Range/Units 10:52 11:19 11:30 WBC 10.3 (4.5-11.0) X10^3/uL RBC 5.04 (4.0-5.2) X10^6/uL Hgb 12.8 (12.0-16.0) g/dL Hct 39.1 (36-46) % MCV 77.5 L (80-100) fL MCH 25.4 L (26-34) PG MCHC 32.7 (30-36) % RDW 15.1 H (11.6-14.8) % Plt Count 394 (150-400) X10^3/uL Neut % (Auto) 70.8 (50-75) % Lymph % (Auto) 21.3 L (25-40) % Bay % (Auto) 5.5 (3-14) % Eos % (Auto) 1.5 L (2-4) % Baso % (Auto) 0.9 (0-2) % Neut # (Auto) 7300 H (3030-5170) /uL Lymph # (Auto) 2200 (5316-6503) /uL Bay # (Auto) 600 (0-900) /uL Eos # (Auto) 200 (0-450) /uL Baso # (Auto) 100 (0-100) /uL Sodium (137-145) mmol/L Potassium (3.4-5.1) mmol/L Chloride (98-107) mmol/L Carbon Dioxide (22-32) mmol/L BUN (7-17) mg/dL Creatinine (0.52-1.04) mg/dL Estimated GFR (>60) mL/min BUN/Creatinine Ratio (6-22) Glucose (70-100) mg/dL Calcium (8.4-10.2) mg/dL Total Bilirubin (0.2-1.3) mg/dL AST (14-36) IU/L ALT (<35) IU/L Alkaline Phosphatase (38-126) U/L Total Creatine Kinase (30-135) U/L CK-MB (CK-2) CK-MB (CK-2) Rel Index Troponin I (0.01-0.034) ng/mL Total Protein (6.3-8.2) g/dL Albumin (3.5-5.0) g/dL Globulin (1.7-4.1) g/dL Albumin/Globulin Ratio (1.0-2.8) Lipase (23-300) U/L Urine RBC None seen (0-5/HPF) Urine WBC None seen (0-5/HPF) Ur Squamous Epith Cells 1-5 /hpf (0-5/HPF) Urine Bacteria None seen (None) Ur Culture Indicated? Cult not indicated SARS-CoV-2 (PCR) Negative (Negative) 01/19/22 Range/Units 11:30 WBC (4.5-11.0) X10^3/uL RBC (4.0-5.2) X10^6/uL Hgb (12.0-16.0) g/dL Hct (36-46) % MCV (80-100) fL MCH (26-34) PG MCHC (30-36) % RDW (11.6-14.8) % Plt Count (150-400) X10^3/uL Neut % (Auto) (50-75) % Lymph % (Auto) (25-40) % Bay % (Auto) (3-14) % Eos % (Auto) (2-4) % Baso % (Auto) (0-2) % Neut # (Auto) (1995-5926) /uL Lymph # (Auto) (7228-1497) /uL Bay # (Auto) (0-900) /uL Eos # (Auto) (0-450) /uL Baso # (Auto) (0-100) /uL Sodium 134 L (137-145) mmol/L Potassium 4.4 (3.4-5.1) mmol/L Chloride 102 (98-107) mmol/L Carbon Dioxide 25 (22-32) mmol/L BUN 15 (7-17) mg/dL Creatinine 0.72 (0.52-1.04) mg/dL Estimated GFR > 60.0 (>60) mL/min BUN/Creatinine Ratio 20.8 (6-22) Glucose 337 H (70-100) mg/dL Calcium 9.7 (8.4-10.2) mg/dL Total Bilirubin 0.5 (0.2-1.3) mg/dL AST 57 H (14-36) IU/L ALT 60 H (<35) IU/L Alkaline Phosphatase 141 H (38-126) U/L Total Creatine Kinase 67 (30-135) U/L CK-MB (CK-2) TNP CK-MB (CK-2) Rel Index TNP Troponin I < 0.012 (0.01-0.034) ng/mL Total Protein 8.3 H (6.3-8.2) g/dL Albumin 4.7 (3.5-5.0) g/dL Globulin 3.6 (1.7-4.1) g/dL Albumin/Globulin Ratio 1.3 (1.0-2.8) Lipase 185 (23-300) U/L Urine RBC (0-5/HPF) Urine WBC (0-5/HPF) Ur Squamous Epith Cells (0-5/HPF) Urine Bacteria (None) Ur Culture Indicated? SARS-CoV-2 (PCR) (Negative) Urine Dip Bedside Urine Glucose 1000 mg/dl Bedside Urine Bilirubin - Negative Bedside Urine Ketone - Negative Urine Specific Zapata 1.030 Bedside Urine Occult Blood ++ Bedside Urine pH 6.0 Bedside Urine Protein +/- 15 Bedside Urine Urobilinogen - Negative Bedside Urine Nitrite - Negative Bedside Urine Leukocytes - Negative Esterase Imaging Data US - abdomen: Radiologist's Impression: PROCEDURE:? US ABDOMEN LIMITED ? INDICATIONS:? RUQ PAIN ELEVATED LFT'S ? TECHNIQUE:? Real-time scanning was performed of the abdominal and retroperitoneal organs, with image documentation.? ? COMPARISON:? [facility], , ABDOMEN COMPLETE, 01/27/2020, 14:08. ? FINDINGS:? ? Liver:? Liver is enlarged at 20 cm.? There is diffusely increased echogenicity without focal mass lesion. ? Gallbladder:? Cholecystectomy? ? Biliary ducts:? Intrahepatic bile ducts are non-dilated.? Extrahepatic bile duct caliber measures 3.2 mm.? Normal is 6-7 mm or less in diameter, or 10 mm or less post-cholecystectomy.? ? Pancreas:? Visualized portions of the pancreas are sonographically normal.? ? IMPRESSION:? Hepatic fatty infiltration associated with hepatomegaly ? Approved by: Juve Mata M.D. on 01/19/2022 at 14:12? MDM Narrative Medical decision making narrative: 56-year-old female with past medical history including cholecystectomy, hypothyroidism, PTSD, depression anxiety presents to the emergency department today complaining of nausea for multiple days, denies vomiting, denies fever but endorses occasional chills. Patient states that she has had diarrhea baseline since her cholecystectomy, there are no changes to her stool or urination at this time. Patient was given Zofran and 1 L of normal saline for her nausea and reported dehydration. Lab work overall is reassuring, liver enzymes appear elevated, concern for hepatic steatosis. Abdominal ultrasound obtained which shows hepatic fatty infiltration associated with hepatomegaly. Intrahepatic bile ducts are nondilated and extrahepatic bile duct caliber is 3.2 mm. This is still within normal range. Liver is enlarged at 20 cm with diffusely increased echogenicity without a focal mass lesion. Patient denies any new medications in fact she states that she has not been taking her antidepressant or any of her medications for the last 2 weeks due to nausea. Patient was counseled about this, she saw social media strategist for resources, she has a counselor and has an upcoming behavioral health appointment. Patient states that she was anxiety about living in a trailer that leaks. Patient's primary care provider is Dr. Gramajo, Pt was encouraged to follow up closely with him about her elevated liver enzymes and glucose, today it was elevated to 337. patient had eaten prior to arrival but she is not on any medications for hyperglycemia nor does she have a diagnosis of diabetes. Lipase is not elevated, it is 185, urine did not show any signs of infection, COVID was negative, no gross electrolyte abnormalities, AST is 57 from her last measured of 30, ALT is 60/measured was 28, alkaline phosphatase was 141, last was 94, comparable lab values taken from 10/12/2021. Patient understands to follow-up closely with Dr. Nguyen and her counselor, and behavioral health for her symptoms. There does not appear to be anything dangerous or surgical at this time. Patient understands to follow-up closely with her primary care provider, and was given strict return precautions for the emergency department. Patient is appropriate and amenable to discharge home. Vital signs are stable on repeat examination is unremarkable. Patient has been informed of results. Patient has been given strict return to ER precautions for any new or worsening symptoms. Patient understands to follow up closely with outpatient providers as instructed. Patient understands plan and agrees to discharge home. All questions and concerns answered at this time. <Glen Franklin, - Last Filed: 01/19/22 16:26> Lab Data Labs: Lab Results 01/19/22 01/19/22 01/19/22 Range/Units 10:52 11:19 11:30 WBC 10.3 (4.5-11.0) X10^3/uL RBC 5.04 (4.0-5.2) X10^6/uL Hgb 12.8 (12.0-16.0) g/dL Hct 39.1 (36-46) % MCV 77.5 L (80-100) fL MCH 25.4 L (26-34) PG MCHC 32.7 (30-36) % RDW 15.1 H (11.6-14.8) % Plt Count 394 (150-400) X10^3/uL Neut % (Auto) 70.8 (50-75) % Lymph % (Auto) 21.3 L (25-40) % Bay % (Auto) 5.5 (3-14) % Eos % (Auto) 1.5 L (2-4) % Baso % (Auto) 0.9 (0-2) % Neut # (Auto) 7300 H (2406-2127) /uL Lymph # (Auto) 2200 (3938-9239) /uL Bay # (Auto) 600 (0-900) /uL Eos # (Auto) 200 (0-450) /uL Baso # (Auto) 100 (0-100) /uL Sodium (137-145) mmol/L Potassium (3.4-5.1) mmol/L Chloride (98-107) mmol/L Carbon Dioxide (22-32) mmol/L BUN (7-17) mg/dL Creatinine (0.52-1.04) mg/dL Estimated GFR (>60) mL/min BUN/Creatinine Ratio (6-22) Glucose (70-100) mg/dL Calcium (8.4-10.2) mg/dL Total Bilirubin (0.2-1.3) mg/dL AST (14-36) IU/L ALT (<35) IU/L Alkaline Phosphatase (38-126) U/L Total Creatine Kinase (30-135) U/L CK-MB (CK-2) CK-MB (CK-2) Rel Index Troponin I (0.01-0.034) ng/mL Total Protein (6.3-8.2) g/dL Albumin (3.5-5.0) g/dL Globulin (1.7-4.1) g/dL Albumin/Globulin Ratio (1.0-2.8) Lipase (23-300) U/L Urine RBC None seen (0-5/HPF) Urine WBC None seen (0-5/HPF) Ur Squamous Epith Cells 1-5 /hpf (0-5/HPF) Urine Bacteria None seen (None) Ur Culture Indicated? Cult not indicated SARS-CoV-2 (PCR) Negative (Negative) 01/19/22 Range/Units 11:30 WBC (4.5-11.0) X10^3/uL RBC (4.0-5.2) X10^6/uL Hgb (12.0-16.0) g/dL Hct (36-46) % MCV (80-100) fL MCH (26-34) PG MCHC (30-36) % RDW (11.6-14.8) % Plt Count (150-400) X10^3/uL Neut % (Auto) (50-75) % Lymph % (Auto) (25-40) % Bay % (Auto) (3-14) % Eos % (Auto) (2-4) % Baso % (Auto) (0-2) % Neut # (Auto) (8250-7943) /uL Lymph # (Auto) (2559-9011) /uL Bay # (Auto) (0-900) /uL Eos # (Auto) (0-450) /uL Baso # (Auto) (0-100) /uL Sodium 134 L (137-145) mmol/L Potassium 4.4 (3.4-5.1) mmol/L Chloride 102 (98-107) mmol/L Carbon Dioxide 25 (22-32) mmol/L BUN 15 (7-17) mg/dL Creatinine 0.72 (0.52-1.04) mg/dL Estimated GFR > 60.0 (>60) mL/min BUN/Creatinine Ratio 20.8 (6-22) Glucose 337 H (70-100) mg/dL Calcium 9.7 (8.4-10.2) mg/dL Total Bilirubin 0.5 (0.2-1.3) mg/dL AST 57 H (14-36) IU/L ALT 60 H (<35) IU/L Alkaline Phosphatase 141 H (38-126) U/L Total Creatine Kinase 67 (30-135) U/L CK-MB (CK-2) TNP CK-MB (CK-2) Rel Index TNP Troponin I < 0.012 (0.01-0.034) ng/mL Total Protein 8.3 H (6.3-8.2) g/dL Albumin 4.7 (3.5-5.0) g/dL Globulin 3.6 (1.7-4.1) g/dL Albumin/Globulin Ratio 1.3 (1.0-2.8) Lipase 185 (23-300) U/L Urine RBC (0-5/HPF) Urine WBC (0-5/HPF) Ur Squamous Epith Cells (0-5/HPF) Urine Bacteria (None) Ur Culture Indicated? SARS-CoV-2 (PCR) (Negative) Urine Dip Bedside Urine Glucose 1000 mg/dl Bedside Urine Bilirubin - Negative Bedside Urine Ketone - Negative Urine Specific Zapata 1.030 Bedside Urine Occult Blood ++ Bedside Urine pH 6.0 Bedside Urine Protein +/- 15 Bedside Urine Urobilinogen - Negative Bedside Urine Nitrite - Negative Bedside Urine Leukocytes - Negative Esterase Discharge Plan Departure Patient Disposition: Home Clinical Impression: Nausea, Hepatomegaly Depression Qualifiers: Depression Type: unspecified Qualified Code(s): F32.A - Depression, unspecified Instructions: Depression, DI for Nausea -- Adult Activity Restrictions/Additional Instructions: *You have been diagnosed with nausea, abdominal pain, and not being on your antidepressant. Please start taking your escitalopram oxalate 30 mg daily, your propanolol 40 mg twice a day, and your levothyroxine 50 mcgs in the morning before any food. He can take hydroxyzine as needed for itching and anxiety, please take omeprazole daily to protect your stomach from ulcer. Please do not take your levothyroxine with any other medications. Please follow-up with Dr. Gramajo, today your lab work is reassuring however your liver enzymes are s lightly elevated compared to the last time in your blood sugar is elevated. Please follow-up with [facility] a soon as possible for another evaluation. You do not have a gallbladder but you could have hepatic steatosis, acute hepatitis, or another problem with your liver which may be new. I hope to start feeling better soon. *What to do: *Please continue to take your regular medications as directed. [ x] New medication prescriptions sent to your pharmacy: [ [facility]] [ ] New medication written as a paper prescription [ ] No new medications given *Please follow up with your primary care provider in 2-3 days, call for an appointment. Let them know you were seen in the Emergency Department and that we ask that you be seen in follow up. We will electronically transmit a record of today's note if your PCP is in our system *If you do not have a primary care provider please contact the [facility] Resource line at [phone]. They will ask some questions about your medical history and help get you set up with a doctor in the community. *Return to Emergency Department if you should have any new, worsening or concerning symptoms, such as [fever greater than 101F, chills, worsening pain, persistent vomiting or other bothersome symptoms] Prescriptions: New pantoprazole 20 mg tablet,delayed release (DR/EC) 20 mg PO DAILY Qty: 20 0RF No Action cyclobenzaprine 10 mg tablet 10 mg PO Q8H PRN (Reason: muscle spasm) Qty: 14 0RF (DME) Disabled Parking Permit Qty: 1 0RF Dose Instruction: As directed Rx Instructions: Patient qualifies for disabled parking. ibuprofen 800 mg tablet See Rx Instructions .ROUTE .COMPLEX Qty: 90 3RF Dose Instruction: TAKE ONE TABLET BY MOUTH THREE TIMES DAILY NEEDED FOR PAIN Rx Instructions: TAKE ONE TABLET BY MOUTH THREE TIMES DAILY NEEDED FOR PAIN escitalopram oxalate 20 mg tablet 30 mg PO DAILY Qty: 135 3RF hydroxyzine HCl 50 mg tablet See Rx Instructions .ROUTE .COMPLEX Qty: 30 3RF Dose Instruction: TAKE ONE TABLET BY MOUTH EVERY SIX HOURS NEEDED Rx Instructions: TAKE ONE TABLET BY MOUTH EVERY SIX HOURS NEEDED docusate calcium [Stool Softener (docusate lisa)] 240 mg capsule See Rx Instructions .ROUTE .COMPLEX Qty: 60 2RF Dose Instruction: TAKE 2 CAPSULES BY MOUTH AT BEDTIME Rx Instructions: TAKE 2 CAPSULES BY MOUTH AT BEDTIME levothyroxine 50 mcg tablet 100 mcg PO DAILY Qty: 120 1RF propranolol 40 mg tablet 40 mg PO BID Qty: 180 3RF benzonatate [Tessalon Perles] 100 mg capsule 100 mg PO BID-TID PRN (Reason: cough) Qty: 20 0RF Referrals: Amarjit Gramajo MD [Primary Care Provider] - <Glen Franklin DO - Last Filed: 01/19/22 16:26> Cosign ED Attending Cosignature Attestation: Dr Franklin Co-Sign Statement: I was available for consultation during this patient's emergency department visit. This chart is signed by myself for administrative purposes only. I did not have direct contact with this patient during this visit. They were seen independently by the APC.
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
[2022-01-19] MEDS: MECLIZINE HCL 12.5 MG TABLET 25 MG PO (13:34)
[2022-01-19] MEDS: FAMOTIDINE 20 MG TABLET PO (13:35)
[2022-01-19] MEDS: ESCITALOPRAM 10 MG TABLET 30 MG PO (13:35)
--- NOTE | 2022-01-19 14:02 | DI.US.S_ITS ---
PROCEDURE: US ABDOMEN LIMITED INDICATIONS: RUQ PAIN ELEVATED LFT'S TECHNIQUE: Real-time scanning was performed of the abdominal and retroperitoneal organs, with image documentation. COMPARISON: [facility], [place], US ABDOMEN COMPLETE, 01/27/2020, 14:08. FINDINGS: Liver: Liver is enlarged at 20 cm. There is diffusely increased echogenicity without focal mass lesion. Gallbladder: Cholecystectomy Biliary ducts: Intrahepatic bile ducts are non-dilated. Extrahepatic bile duct caliber measures 3.2 mm. Normal is 6-7 mm or less in diameter, or 10 mm or less post-cholecystectomy. Pancreas: Visualized portions of the pancreas are sonographically normal. IMPRESSION: Hepatic fatty infiltration associated with hepatomegaly Approved by: Juve Mata M.D. on 01/19/2022 at 14:12
== END 2022-01-19 14:46 | disposition home or self-care (01) ==
PROVIDERS: Emergency Medicine; Emergency Provider Nurse Practitioner Critical Care Medicine; PCP Family Medicine
DX: R10.11 Right upper quadrant pain (principal); R11.0 Nausea; R16.0 Hepatomegaly, not elsewhere classified; F32.A Depression, unspecified; R03.0 Elevated blood-pressure reading, without diagnosis of hypertension; Z20.822 Contact with and (suspected) exposure to COVID-19
CPT/HCPCS: 36415; 76705; 80053; 81003; 81015; 82550; 83690; 84484; 85025; 87635; 93005; 96361; 96374; 99284; 99285; C9803; A9270; J2405